=== PATIENT | male | born 1945 | race Caucasian/White ===

== ENCOUNTER 2016-06-10 11:21 | Outpatient (CLI) | payer OTHER | END 2016-06-10 11:22 | disposition home or self-care (01) | DX: C61 Malignant neoplasm of prostate (principal) ==

== ENCOUNTER 2016-07-02 08:10 | Outpatient (CLI) | payer OTHER | END 2016-07-02 08:11 | disposition home or self-care (01) | DX: Z79.899 Other long term (current) drug therapy (principal) ==

== ENCOUNTER 2016-07-12 09:52 | Outpatient (CLI) | payer OTHER | END 2016-07-12 09:53 | disposition home or self-care (01) | DX: M85.89 Other specified disorders of bone density and structure, multiple sites (principal); Z79.899 Other long term (current) drug therapy; C61 Malignant neoplasm of prostate; Z79.810 Long term (current) use of selective estrogen receptor modulators (SERMs); Z79.52 Long term (current) use of systemic steroids ==

== ENCOUNTER 2016-09-16 14:27 | Outpatient (CLI) | payer OTHER | END 2016-09-16 14:28 | disposition home or self-care (01) | LOC: SC 14:27 | PROVIDERS: ATTEND Internal Medicine Pulmonary Disease | DX: G47.33 Obstructive sleep apnea (adult) (pediatric) (principal) | CPT/HCPCS: 99212; 99213 ==

== ENCOUNTER 2016-10-29 21:06 | Outpatient (CLI) | payer OTHER ==
[2016-10-29 13:37] LABS: HEMOGLOBIN A1C 0.55 g/dL
== END 2016-10-29 21:07 | disposition home or self-care (01) ==
LOC: LAB.WCP 21:06
PROVIDERS: ATTEND Family Medicine
DX: R73.01 Impaired fasting glucose (principal)
CPT/HCPCS: 36415; 83036

== ENCOUNTER 2016-12-09 10:47 | Outpatient (CLI) | payer OTHER | END 2016-12-09 10:48 | disposition home or self-care (01) | LOC: SC 10:47 | PROVIDERS: ATTEND Nurse Practitioner Family | DX: G47.33 Obstructive sleep apnea (adult) (pediatric) (principal) | CPT/HCPCS: 99212; 99214 ==

== ENCOUNTER 2016-12-14 09:44 | Outpatient (CLI) | payer OTHER ==
[2016-12-14 10:44] LABS: ALBUMIN/GLOBULIN RATIO 1.6 (1.0-2.2); BILIRUBIN,TOTAL 0.8 mg/dL (0.2-1.0); CALCIUM 9.8 mg/dL (8.5-10.3); POTASSIUM 4.4 mmol/L (3.5-5.0); TOTAL PROTEIN 7.4 g/dL (6.7-8.2)
== END 2016-12-14 09:45 | disposition home or self-care (01) ==
LOC: LAB 09:44
PROVIDERS: ATTEND Physician Assistant Medical
DX: R25.2 Cramp and spasm (principal); Z79.899 Other long term (current) drug therapy
CPT/HCPCS: 80053; 80175; 80178

== ENCOUNTER 2017-02-21 13:55 | Outpatient (CLI) | payer OTHER | END 2017-02-21 13:56 | disposition home or self-care (01) | LOC: LAB.WCP 13:55 | PROVIDERS: ATTEND Urology | DX: C61 Malignant neoplasm of prostate (principal) | CPT/HCPCS: 36415; 84153 ==

== ENCOUNTER 2017-03-14 11:08 | Outpatient (CLI) | payer OTHER ==
[2017-03-14 19:00] LABS: CALCIUM 9.3 mg/dL (8.5-10.3); POTASSIUM 4.3 mmol/L (3.5-5.0)
== END 2017-03-14 11:09 | disposition home or self-care (01) ==
LOC: LAB.WCP 11:08
PROVIDERS: ATTEND Family Medicine
DX: R30.0 Dysuria (principal); I10 Essential (primary) hypertension; Z79.899 Other long term (current) drug therapy
CPT/HCPCS: 36415; 80048

== ENCOUNTER 2017-04-16 10:58 | Outpatient (CLI) | payer OTHER | END 2017-04-16 10:59 | disposition home or self-care (01) | LOC: SC 10:58 | PROVIDERS: ATTEND Nurse Practitioner Family | DX: G47.33 Obstructive sleep apnea (adult) (pediatric) (principal); G47.31 Primary central sleep apnea | CPT/HCPCS: 99212; 99214 ==

== ENCOUNTER 2017-05-19 09:57 | Outpatient (CLI) | payer OTHER | END 2017-05-19 09:58 | disposition home or self-care (01) | LOC: SC 09:57 | PROVIDERS: ATTEND Nurse Practitioner Family | DX: G47.33 Obstructive sleep apnea (adult) (pediatric) (principal) | CPT/HCPCS: 99212; 99214 ==

== ENCOUNTER 2017-05-31 21:00 | Outpatient (CLI) | payer OTHER ==
[2017-05-31 21:17] LABS: BASOPHILS % (AUTO) 2.9 %; HGB - HEMOGLOBIN 14.1 g/dL (14.0-18.0); LYMPHOCYTES % (AUTO) 18.2 %; MEAN CORPUSCULAR HEMOGLOBIN 30.9 pg (27.0-31.0); MEAN CORPUSCULAR HGB CONC 33.5 g/dL (32.0-36.0); MEAN CORPUSCULAR VOLUME 92.3 fL (80.0-94.0); MEAN PLATELET VOLUME 7.1 fL (7.4-11.4); MONOCYTES % (AUTO) 10.4 %; NEUTROPHILS % (AUTO) 63.5 %; PLT - PLATELET COUNT 239 10^3/uL (130-450); RED BLOOD COUNT 4.57 10^6/uL (4.70-6.10); RED CELL DISTRIBUTION WIDTH 13.7 % (12.0-15.0); WHITE BLOOD COUNT 8.6 x10^3/uL (4.8-10.8)
[2017-05-31 21:25] LABS: ALBUMIN 4.4 g/dL (3.2-5.5); ALBUMIN/GLOBULIN RATIO 1.4 (1.0-2.2); BILIRUBIN,TOTAL 0.8 mg/dL (0.2-1.0); CALCIUM 9.9 mg/dL (8.5-10.3); CREATININE 1.4 mg/dL (0.6-1.2); TOTAL PROTEIN 7.6 g/dL (6.7-8.2)
[2017-05-31 21:27] LABS: ABNORMAL LYMPHS % (MANUAL) 0 %
[2017-05-31 22:00] LABS: BAND NEUTROPHILS % (MANUAL) 4 %; EOSINOPHILS # (MANUAL) 0.5 10^3/uL (0-0.7); LYMPHOCYTES # (MANUAL) 2.2 10^3/uL (1.5-3.5); LYMPHOCYTES % (MANUAL) 25 %; MONOCYTES # (MANUAL) 0.7 10^3/uL (0.0-1.0); NEUTROPHILS # (MANUAL) 5.2 10^3/uL (1.5-6.6); NEUTROPHILS % (MANUAL) 57 %; PLATELET ESTIMATE, MANUAL NORMAL (130-450,000) (NORMAL); PLATELET MORPHOLOGY NORMAL APPEARANCE (NORMAL); RBC MORPHOLOGY (MULTIPLE) NORMAL APPEARANCE (NORMAL)
[2017-05-31 22:01] LABS: DIFFERENTIAL COMMENT MANUAL DIFFERENTIAL
== END 2017-05-31 21:01 | disposition home or self-care (01) ==
LOC: LAB 21:00
PROVIDERS: ATTEND Family Medicine
DX: R10.9 Unspecified abdominal pain (principal); R19.7 Diarrhea, unspecified
CPT/HCPCS: 36415; 80053; 81599; 83690; 85025; 87045; 87046; 87329; 87493; 89055

== ENCOUNTER 2017-06-04 08:07 | Outpatient (CLI) | payer OTHER ==
[2017-06-04] MEDS ORDERED: IOPAMIDOL-300 100 ML VIAL ONE (08:19)
[2017-06-04] MEDS ORDERED: IOPAMIDOL-300 100 ML VIAL IVP ONE (08:47)
--- NOTE | 2017-06-04 10:47 | CT Report ---
ABDOMEN AND PELVIS CT: 06/04/2017 COMPARISON: No comparison. INDICATION: Abdominal pain. TECHNIQUE: Axial imaging of the abdomen and pelvis was performed with 100 mL Isovue-300 intravenous contrast. No oral contrast. Coronal and sagittal reformats. FINDINGS: There is band-like atelectasis or scar of the lingula. There are calcifications of the coronary arteries. A 1 cm flash enhancement in the right lobe of the liver likely a flash enhancing hemangioma. The liver, spleen, pancreas, adrenal glands, and kidneys appear otherwise unremarkable. There are colon surgery changes. Prostate brachytherapy seeds are noted. There is a calcified gallstone. IMPRESSION: THERE ARE NO CT FINDINGS TO SUGGEST A CAUSE OF THE PATIENT'S SYMPTOMS. CT DOSE REDUCTION STATEMENT In accordance with CT protocol optimization, one or more of the following dose reduction techniques were utilized for this exam: automated exposure control, adjustment of mA and/or KV based on patient size, or use of iterative reconstructive technique. TD: 06/04/2017 10:45 MTDD
== END 2017-06-04 08:08 | disposition home or self-care (01) ==
LOC: DI 08:07
PROVIDERS: ATTEND Family Medicine
DX: R10.9 Unspecified abdominal pain (principal)
CPT/HCPCS: 74174; Q9967

== ENCOUNTER 2017-06-15 09:06 | Outpatient (CLI) | payer OTHER ==
[2017-06-15 09:29] LABS: CALCIUM 9.2 mg/dL (8.5-10.3); CREATININE 1.2 mg/dL (0.6-1.2)
[2017-06-15 10:18] LABS: LITHIUM 0.33 mmol/L
== END 2017-06-15 09:07 | disposition home or self-care (01) ==
LOC: LAB 09:06
PROVIDERS: ATTEND Psychiatry & Neurology Psychiatry
DX: Z79.899 Other long term (current) drug therapy (principal)
CPT/HCPCS: 36415; 80048; 80178

== ENCOUNTER 2017-06-16 10:02 | Outpatient (CLI) | payer OTHER | END 2017-06-16 10:03 | disposition home or self-care (01) | LOC: SC 10:02 | PROVIDERS: ATTEND Nurse Practitioner Family | DX: G47.33 Obstructive sleep apnea (adult) (pediatric) (principal) | CPT/HCPCS: 99212; 99214 ==

== ENCOUNTER 2017-07-22 14:59 | Outpatient (CLI) | payer OTHER | END 2017-07-22 15:00 | disposition home or self-care (01) | LOC: SC 14:59 | PROVIDERS: ATTEND Nurse Practitioner Family | DX: G47.33 Obstructive sleep apnea (adult) (pediatric) (principal) | CPT/HCPCS: 99212; 99214 ==

== ENCOUNTER 2017-08-14 10:17 | Emergency (ER) | payer OTHER ==
[2017-08-14 11:05] LABS: BASOPHILS # (AUTO) 0.1 10^3/uL (0.0-0.1); BASOPHILS % (AUTO) 0.9 %; EOSINOPHILS # (AUTO) 0.2 10^3/uL (0.0-0.7); EOSINOPHILS % (AUTO) 3.2 %; HGB - HEMOGLOBIN 14.2 g/dL (14.0-18.0); LYMPHOCYTES # (AUTO) 1.3 10^3/uL (1.5-3.5); LYMPHOCYTES % (AUTO) 17.6 %; MEAN CORPUSCULAR HEMOGLOBIN 31.1 pg (27.0-31.0); MEAN CORPUSCULAR HGB CONC 33.8 g/dL (32.0-36.0); MEAN CORPUSCULAR VOLUME 91.9 fL (80.0-94.0); MEAN PLATELET VOLUME 6.8 fL (7.4-11.4); MONOCYTES # (AUTO) 0.9 10^3/uL (0.0-1.0); MONOCYTES % (AUTO) 11.6 %; NEUTROPHILS # (AUTO) 4.9 10^3/uL (1.5-6.6); NEUTROPHILS % (AUTO) 66.7 %; PLT - PLATELET COUNT 165 10^3/uL (130-450); RED BLOOD COUNT 4.56 10^6/uL (4.70-6.10); RED CELL DISTRIBUTION WIDTH 13.9 % (12.0-15.0); WHITE BLOOD COUNT 7.4 x10^3/uL (4.8-10.8)
[2017-08-14 11:20] LABS: ALBUMIN 4.1 g/dL (3.2-5.5); ALBUMIN/GLOBULIN RATIO 1.3 (1.0-2.2); BILIRUBIN,TOTAL 0.8 mg/dL (0.2-1.0); TOTAL PROTEIN 7.3 g/dL (6.7-8.2)
--- NOTE | 2017-08-14 11:50 | XRAY Report ---
EXAM: CHEST RADIOGRAPHY EXAM DATE: 08/14/2017 11:22 AM. CLINICAL HISTORY: Chest pain and shortness of breath for 3 days. COMPARISON: Chest x-ray 02/16/2016. TECHNIQUE: 2 views. FINDINGS: Lungs/Pleura: No focal consolidation evident. No pleural effusion. No pneumothorax. Normal volumes. M ild lateral left basilar scarring. Left pericardial fat pad. Mediastinum: Tortuous thoracic aorta. Other: Midthoracic spine degenerative changes. IMPRESSION: No consolidation evident. [facility] Referring Provider Line: [phone] SITE ID: [id number]
--- NOTE | 2017-08-14 12:07 | ED Physician Documentation ---
PD HPI DYSPNEA - Stated complaint Stated Complaint: SOA/FATIGUE DIZZY - Chief complaint Chief Complaint: Resp - History obtained from History obtained from: Patient - History of Present Illness Timing - onset: How many days ago (3) Timing - onset during: Light activity Timing - duration: Days (3) Timing - details: Abrupt onset, Still present, Waxing and waning (much worse at times, when lying down on side and also with light activity. Sometimes feels not too bad.) Inciting event(s): No: Out of meds, URI, Immobilization/travel Improved by: Rest Worsened by: Exertion, Laying flat Associated symptoms: No: Fever, Cough, Hemoptysis, Wheezing, Chest pain / discomfort, Bilateral edema Similar symptoms before: Has not had sx before Recently seen: Clinic (seen by psychiatrist and is having lithium lowering and started Tegretol. Had Lomotrigene increased.), Emergency Dept (had unexplained lower abd pain about 3 months ago with normal tests and no diagnosis; improved after few days. No subsequent problems. No travel nor leg edema.) Review of Systems Constitutional: denies: Fever, Chills Nose: denies: Rhinorrhea / runny nose, Congestion Throat: denies: Sore throat Cardiac: reports: Calf pain (had a cramp in left leg about 3 weeks ago fro just one night. No recent problems.). denies: Chest pain / pressure, Palpitations, Pedal edema Respiratory: reports: Dyspnea. denies: Cough, Wheezing GI: denies: Abdominal Pain, Nausea, Vomiting : denies: Dysuria, Frequency Skin: denies: Rash, Lesions, Abrasion (s) Neurologic: denies: Focal weakness, Numbness, Near syncope Psychiatric: reports: Depressed, Anxiety Endocrine: denies: Weight loss Immunocompromised: denies: Immunocompromised PD PAST MEDICAL HISTORY - Past Medical History Cardiovascular: None Respiratory: Sleep apnea, CPAP use GI: None : None, Other HEENT: None Psych: Bipolar disorder Musculoskeletal: Osteoarthritis, Chronic back pain Derm: None - Past Surgical History Past Surgical History: Yes General: Colonoscopy, EGD, Other Ortho: Rotator cuff repair, Other HEENT: Tonsil/Adenoidectomy - Present Medications Home Medications: Ambulatory Orders Medication Instructions Recorded Confirmed Bupropion HCl [Wellbutrin] 100 mg PO TID 10/23/13 08/15/16 busPIRone [Buspar] 15 mg PO QID 01/13/13 11/06/15 lamoTRIgine [LaMICtal] 200 mg PO BID 01/13/13 11/06/15 oxyCODONE [Roxicodone] 5 mg PO Q4-6H 01/13/13 11/06/15 Acetaminophen 1,000 mg PO DAILY 10/16/15 10/16/15 Tamsulosin HCl [Flomax] 0.4 mg ORAL DAILY 10/16/15 11/06/15 Carbamazepine 200 mg PO 08/14/17 Maxeys 450 mg PO 08/14/17 - Allergies Allergies/Adverse Reactions: Allergies Allergy/AdvReac Type Severity Reaction Status Date / Time latex Allergy Rash Verified 08/14/17 10:38 - Social History Does the pt smoke?: No Smoking Status: Never smoker Does the pt drink ETOH?: No Does the pt have substance abuse?: No - Family History Family history: denies: CAD, Venous thromboembolism PD ED PE NORMAL - Vitals Vital signs reviewed: Yes - General General: Alert and oriented X 3, No acute distress, Well developed/nourished - HEENT HEENT: Atraumatic, Pharynx benign - Neck Neck: Supple, no meningeal sign, No adenopathy - Cardiac Cardiac: RRR, No murmur - Respiratory Respiratory: No respiratory distress, Clear bilaterally - Abdomen Abdomen: Normal bowel sounds, Soft, Non tender, Non distended - Male Male : Deferred - Rectal Rectal: Deferred - Back Back: No CVA TTP - Derm Derm: Normal color, Warm and dry - Extremities Extremities: No deformity, No tenderness to palpate, Normal ROM s pain, No edema , No calf tenderness / cord - Neuro Neuro: Alert and oriented X 3, No motor deficit, Normal speech Eye Opening: Spontaneous Motor: Obeys Commands Verbal: Oriented GCS Score: 15 - Psych Psych: Normal mood, Normal affect Results - Vitals Vitals: Vital Signs - 24 hr 08/14/17 08/14/17 08/14/17 10:23 14:22 15:36 Temperature 36.4 C L 36.5 C 36.4 C L Heart Rate 78 71 64 Respiratory 18 20 16 Rate Blood Pressure 131/85 H 132/92 H 122/85 H O2 Saturation 96 97 98 08/14/17 08/14/17 17:40 18:11 Temperature Heart Rate 65 67 Respiratory 16 25 H Rate Blood Pressure 127/73 143/86 H O2 Saturation 97 96 Oxygen O2 Source Room air - EKG (time done) 10:25 Rate: Rate (enter#) (65) Rhythm: NSR [place]: Normal Intervals: Normal [place] QRS: Normal Ischemia: Normal ST segments. No: ST elevation c/w ischemia, ST depression, T wave inversion - Labs Labs: Laboratory Tests 08/14/17 08/14/17 08/14/17 10:50 10:50 10:50 WBC 7.4 RBC 4.56 L Hgb 14.2 Hct 41.9 L MCV 91.9 MCH 31.1 H MCHC 33.8 RDW 13.9 Plt Count 165 MPV 6.8 L Neut # 4.9 Lymph # 1.[address] [place] # 0.9 Eos # 0.2 Baso # 0.1 Absolute Nucleated RBC 0.01 Nucleated RBC % 0.1 D-Dimer Sodium 136 Potassium 4.1 Chloride 105 Carbon Dioxide 25 Anion Gap 6.0 BUN 14 Creatinine 1.0 Estimated GFR (MDRD) 73 L Glucose 103 H Calcium 9.0 Magnesium Total Bilirubin 0.8 AST 22 ALT 21 Alkaline Phosphatase 88 Troponin I 0.19 B-Natriuretic Peptide Total Protein 7.3 Albumin 4.1 Globulin 3.2 Albumin/Globulin Ratio 1.3 Lipase 25 Last Dose Date Last Dose Time Carbamazepine Max[place]ys 08/14/17 08/14/17 08/14/17 10:50 10:50 10:50 WBC RBC Hgb Hct MCV MCH MCHC RDW Plt Count MPV Neut # Lymph # [place] # Eos # Baso # Absolute Nucleated RBC Nucleated RBC % D-Dimer 2200.0 H Sodium Potassium Chloride Carbon Dioxide Anion Gap BUN Creatinine Estimated GFR (MDRD) Glucose Calcium Magnesium 2.2 Total Bilirubin AST ALT Alkaline Phosphatase Troponin I B-Natriuretic Peptide 75 Total Protein Albumin Globulin Albumin/Globulin Ratio Lipase Last Dose Date Unknown Last Dose Time Unknown Carbamazepine 6.5 Maxeys 08/14/17 08/14/17 10:50 12:52 WBC RBC Hgb Hct MCV MCH MCHC RDW Plt Count MPV Neut # Lymph # [place] # Eos # Baso # Absolute Nucleated RBC Nucleated RBC % D-Dimer Sodium Potassium Chloride Carbon Dioxide Anion Gap BUN Creatinine Estimated GFR (MDRD) Glucose Calcium Magnesium Total Bilirubin AST ALT Alkaline Phosphatase Troponin I 0.15 B-Natriuretic Peptide Total Protein Albumin Globulin Albumin/Globulin Ratio Lipase Last Dose Date Unknown Last Dose Time Unknown Carbamazepine Maxeys 0.25 - Rads (name of study) chest xray Radiology: Prelim report reviewed, EMP read contemporaneously (no acute process) chest CTA Radiology: Prelim report reviewed, Discussed with rads (multiple emboli centrally both sides, with saddle embolus present. Enlarged RV but not obvious strain per se. ) PD MEDICAL DECISION MAKING - ED course Complexity details: reviewed results, re-evaluated patient (still stable vitals. ), considered differential (ACS, PTX, pneumonia, NE, CHF, PE as possible causes. ), d/w patient, d/w client support consultant ([place] transfer coordinatory who arranged transfer to [facility]. ) Departure - Departure Disposition: 02 Transfer Acute Care Hosp Clinical Impression: Acute dyspnea Saddle embolism of pulmonary artery Qualifiers: Chronicity: acute Acute cor pulmonale presence: without acute cor pulmonale Qualified Code(s): I26.92 - Saddle embolus of pulmonary artery without acute cor pulmonale Condition: Stable Record reviewed to determine appropriate education?: Yes Discharge Date/Time: 08/14/17 18:15
[2017-08-14 12:42] LABS: LITHIUM 0.25 mmol/L
[2017-08-14 12:48] LABS: CARBAMAZEPINE (TEGRETOL) 6.5 ug/mL; MAGNESIUM 2.2 mg/dL (1.7-2.8)
[2017-08-14] MEDS ORDERED: IOPAMIDOL-300 100 ML VIAL IVP ONE (13:39)
[2017-08-14] MEDS ORDERED: HEPARIN 5,000 UNIT/ML VIAL IVP STA (13:40)
[2017-08-14] MEDS ORDERED: IOPAMIDOL-300 100 ML VIAL ONE (13:51)
--- NOTE | 2017-08-14 13:56 | CT Report ---
EXAM: CT ANGIOGRAM CHEST EXAM DATE: 08/14/2017 01:37 PM. CLINICAL HISTORY: Dyspnea and elevated d-dimer. COMPARISON: 02/23/2016. TECHNIQUE: Routine helical imaging was performed through the chest in the pulmonary arterial phase. I V Contrast: ISOVUE 300 80mL. Reconstructions: Coronal 3-D MIP reconstructions.Sagittal and coronal. In accordance with CT protocol optimization, one or more of the following dose reduction techniques w ere utilized for this exam: automated exposure control, adjustment of mA and/or KV based on patient s ize, or use of iterative reconstructive technique. FINDINGS: Pulmonary Arteries: Diagnostic quality: Adequate through the segmental arteries. Positive for acute pulmonary embolism in cluding a saddle pulmonary embolism with bilateral lobar, segmental and subsegmental pulmonary emboli . No abnormal flattening of the intraventricular septum. The right ventricle appears dilated. No reflux of contrast into the hepatic veins or inferior vena cava. Lungs/Pleura: There is left lower lobe atelectasis. No consolidative process or central endobronchial obstructing lesion. Mediastinum: Heart size is normal. Negative for pericardial effusion. There are dense coronary artery calcifications. Thoracic aorta is normal in caliber with mild atherosclerotic calcified plaque. Thoracic Aorta: No aortic aneurysm. Upper Abdomen: There is a small gallstone in the gallbladder. Other: None. IMPRESSION: 1. Positive for bilateral central pulmonary emboli including saddle pulmonary embolism. 2. Equivocal features for right ventricular strain. Right ventricle is dilated but other findings are negative. [facility] The above findings were discussed with Jarret Lopez by Dr. Lucien Toure at 13:53 hrs on 07/23 07/09. Referring Provider Line: [phone] SITE ID: [id number]
[2017-08-14] MEDS ORDERED: HEPARIN 25000UNITS/500ML (D5W) 25,000 UNIT/500 ML BAG IV SCH (14:00)
[2017-08-14 18:12] VITALS: BP 143/86
== END 2017-08-14 18:15 | disposition short-term general hospital (02) ==
LOC: ED 10:17
DX: I26.92 Saddle embolus of pulmonary artery without acute cor pulmonale (principal); R06.09 Other forms of dyspnea; G47.30 Sleep apnea, unspecified; M19.90 Unspecified osteoarthritis, unspecified site
CPT/HCPCS: 36415; 71046; 71275; 80053; 80156; 80175; 80178; 83690; 83735; 83880; 84484; 85025; 85379; 93005; 96365; 96366; 96376; 99284; Q9967

== ENCOUNTER 2017-08-18 09:05 | Outpatient (CLI) | payer OTHER ==
[2017-08-18 09:26] LABS: BASOPHILS # (AUTO) 0.1 10^3/uL (0.0-0.1); BASOPHILS % (AUTO) 1.2 %; EOSINOPHILS # (AUTO) 0.3 10^3/uL (0.0-0.7); EOSINOPHILS % (AUTO) 4.5 %; HGB - HEMOGLOBIN 14.8 g/dL (14.0-18.0); LYMPHOCYTES # (AUTO) 1.1 10^3/uL (1.5-3.5); MEAN CORPUSCULAR HEMOGLOBIN 31.1 pg (27.0-31.0); MEAN CORPUSCULAR HGB CONC 34.1 g/dL (32.0-36.0); MEAN CORPUSCULAR VOLUME 91.1 fL (80.0-94.0); MEAN PLATELET VOLUME 7.1 fL (7.4-11.4); MONOCYTES # (AUTO) 0.9 10^3/uL (0.0-1.0); MONOCYTES % (AUTO) 15.1 %; NEUTROPHILS # (AUTO) 3.7 10^3/uL (1.5-6.6); NEUTROPHILS % (AUTO) 61.2 %; PLT - PLATELET COUNT 166 10^3/uL (130-450); RED BLOOD COUNT 4.77 10^6/uL (4.70-6.10); RED CELL DISTRIBUTION WIDTH 13.8 % (12.0-15.0); WHITE BLOOD COUNT 6.1 x10^3/uL (4.8-10.8)
[2017-08-18 09:31] LABS: INR 1.7 (0.8-1.2); PT - PROTHROMBIN TIME 18.6 secs (9.9-12.6)
[2017-08-18 09:44] LABS: ALBUMIN 4.3 g/dL (3.2-5.5); ALBUMIN/GLOBULIN RATIO 1.3 (1.0-2.2); ALKALINE PHOSPHATASE 111 IU/L (42-121); ALT ALANINE AMINOTRANSFERASE 57 IU/L (10-60); AST ASPARTATE AMINOTRANSFERASE 62 IU/L (10-42); BILIRUBIN,TOTAL 0.6 mg/dL (0.2-1.0); BUN - BLOOD UREA NITROGEN 13 mg/dL (6-20); CALCIUM 9.1 mg/dL (8.5-10.3); CARBAMAZEPINE (TEGRETOL) 8.1 ug/mL; CARBON DIOXIDE - CO2 24 mmol/L (21-32); CHLORIDE 102 mmol/L (101-111); CREATININE 1.1 mg/dL (0.6-1.2); GFR - MDRD 66 (>89); GLUCOSE 103 mg/dL (70-100); SODIUM 137 mmol/L (135-145); TOTAL PROTEIN 7.7 g/dL (6.7-8.2)
[2017-08-18 10:44] LABS: LITHIUM 0.29 mmol/L
== END 2017-08-18 09:06 | disposition home or self-care (01) ==
LOC: LAB 09:05
PROVIDERS: ATTEND Urology
DX: I26.99 Other pulmonary embolism without acute cor pulmonale (principal); R97.20 Elevated prostate specific antigen [PSA]
CPT/HCPCS: 36415; 80053; 80156; 80178; 84153; 85025; 85610

== ENCOUNTER 2017-08-20 14:17 | Outpatient (CLI) | payer OTHER ==
[2017-08-20 18:50] LABS: HGB - HEMOGLOBIN 14.3 g/dL (14.0-18.0); MEAN CORPUSCULAR HEMOGLOBIN 30.2 pg (27.0-31.0); MEAN CORPUSCULAR HGB CONC 32.9 g/dL (32.0-36.0); MEAN CORPUSCULAR VOLUME 91.7 fL (80.0-94.0); MEAN PLATELET VOLUME 7.8 fL (7.4-11.4); RED BLOOD COUNT 4.74 10^6/uL (4.70-6.10); RED CELL DISTRIBUTION WIDTH 13.8 % (12.0-15.0); WHITE BLOOD COUNT 6.5 x10^3/uL (4.8-10.8)
[2017-08-20 19:11] LABS: CREATININE 1.1 mg/dL (0.6-1.2)
== END 2017-08-20 14:18 | disposition home or self-care (01) ==
LOC: LAB.WCP 14:17
PROVIDERS: ATTEND Family Medicine
DX: R05 Cough (principal)
CPT/HCPCS: 36415; 80048; 83880; 85027

== ENCOUNTER 2017-09-03 14:57 | Outpatient (CLI) | payer OTHER | END 2017-09-03 14:58 | disposition home or self-care (01) | LOC: SC 14:57 | PROVIDERS: ATTEND Nurse Practitioner Family | DX: G47.33 Obstructive sleep apnea (adult) (pediatric) (principal) | CPT/HCPCS: 99212; 99214 ==

== ENCOUNTER 2017-10-06 09:28 | Emergency (ER) | payer OTHER ==
--- NOTE | 2017-10-06 10:30 | ED Physician Documentation ---
PD HPI DYSPNEA - Stated complaint Stated Complaint: SOA, DIZZY - Chief complaint Chief Complaint: Resp - History obtained from History obtained from: Patient - History of Present Illness Timing - onset: How many days ago (3) Timing - onset during: Light activity Timing - duration: Days (3) Timing - details: Gradual onset, Still present Inciting event(s): URI, Other (has PE's) Improved by: Rest Worsened by: Exertion Associated symptoms: Cough. No: Fever, Hemoptysis, Wheezing, Chest pain / discomfort, Palpitations, Diaphoresis, Bilateral edema, Unilateral edema Similar symptoms before: Diagnosis (pulmonary embolism.) Recently seen: Admitted - Additional information Additional information: 72-year-old male who was admitted in July for saddle embolus is on Coumadin and had been improving. He has been going on his dog walks on a regular basis and about 3 days ago he began to have some increasing shortness of breath. He denies other intercurrent illness except for a dry cough. Review of Systems Constitutional: denies: Fever Eyes: denies: Decreased vision Ears: denies: Ear pain Nose: reports: Congestion. denies: Rhinorrhea / runny nose Throat: denies: Sore throat Cardiac: denies: Chest pain / pressure, Palpitations Respiratory: reports: Dyspnea, Cough GI: denies: Abdominal Pain, Nausea, Vomiting : denies: Dysuria, Frequency PD PAST MEDICAL HISTORY - Past Medical History Past Medical History: Yes Cardiovascular: None, Pulmonary embolism Respiratory: Sleep apnea, CPAP use GI: None : None, Other HEENT: None Psych: Bipolar disorder Musculoskeletal: Osteoarthritis, Chronic back pain Derm: None - Past Surgical History Past Surgical History: Yes General: Colonoscopy, EGD, Other Ortho: Rotator cuff repair, Other HEENT: Tonsil/Adenoidectomy - Present Medications Home Medications: Ambulatory Orders Medication Instructions Recorded Confirmed Bupropion HCl [Wellbutrin] 100 mg PO TID 01/13/13 11/06/15 busPIRone [Buspar] 15 mg PO QID 01/13/13 11/06/15 lamoTRIgine [LaMICtal] 200 mg PO BID 01/13/13 11/06/15 oxyCODONE [Roxicodone] 5 mg PO Q4-6H 01/13/13 11/06/15 Acetaminophen 1,000 mg PO DAILY 10/16/15 10/16/15 Tamsulosin HCl [Flomax] 0.4 mg ORAL DAILY 10/16/15 11/06/15 Carbamazepine 200 mg PO 08/14/17 [place] 450 mg PO 08/14/17 Albuterol Sulf [Ventolin Hfa 1 - 2 puffs INH Q4HR PRN #1 inhaler 10/06/17 Inhaler] Azithromycin [Zithromax] 250 mg PO DAILY #6 tablet 10/06/17 Warfarin Sodium 7.5 mg PO 10/06/17 - Allergies Allergies/Adverse Reactions: Allergies Allergy/AdvReac Type Severity Reaction Status Date / Time latex Allergy Rash Verified 08/14/17 10:38 - Social History Does the pt smoke?: No Smoking Status: Never smoker Does the pt drink ETOH?: No Does the pt have substance abuse?: No - Immunizations Immunizations are current?: Yes PD ED PE NORMAL - Vitals Vital signs reviewed: Yes (hypertensive) - General General: Alert and oriented X 3, No acute distress, Well developed/nourished - HEENT HEENT: Atraumatic, PERRL, EOMI, Other (cerumen in the right left TM is clear) - Neck Neck: Supple, no meningeal sign, No bony TTP - Cardiac Cardiac: RRR, No murmur - Respiratory Respiratory: No respiratory distress, Other (light rhonchi in the left base ) - Abdomen Abdomen: Soft, Non tender - Back Back: No CVA TTP, No spinal TTP - Derm Derm: Normal color, Warm and dry, No rash - Extremities Extremities: No deformity, No edema - Neuro Neuro: Alert and oriented X 3, 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, No motor deficit, No sensory deficit, Normal speech Eye Opening: Spontaneous Motor: Obeys Commands Verbal: Oriented GCS Score: 15 - Psych Psych: Normal mood, Normal affect Results - Vitals Vitals: Vital Signs - 24 hr 10/06/17 10/06/17 10/06/17 09:36 10:04 11:33 Temperature 36.5 C Heart Rate 71 56 L 56 L Respiratory 20 15 16 Rate Blood Pressure 138/85 H 117/84 H 142/77 H O2 Saturation 94 98 97 10/06/17 10/06/17 12:50 13:00 Temperature Heart Rate 56 L 51 L Respiratory 17 15 Rate Blood Pressure 128/95 H O2 Saturation 98 Oxygen O2 Source Room air - EKG (time done) 0941 Rate: Rate (enter#) (59) Intervals: Wide QRS QRS: Low voltage Compare to prior EKG: Unchanged from prior EKG (08-14-17) Computer interpretation: Agree with computer - Labs Labs: Laboratory Tests 10/06/17 10/06/17 10/06/17 10:12 10:12 10:12 WBC 5.7 RBC 4.26 L Hgb 13.3 L Hct 39.6 L MCV 93.0 MCH 31.3 H MCHC 33.6 RDW 13.8 Plt Count 162 MPV 6.9 L Neut # (Auto) 3.5 Lymph # (Auto) 1.2 L [place] # (Auto) 0.8 Eos # (Auto) 0.3 Baso # (Auto) 0.1 Absolute Nucleated RBC 0.00 Nucleated RBC % 0.0 PT 25.8 H INR 2.4 H Sodium 137 Potassium 4.2 Chloride 107 Carbon Dioxide 26 Anion Gap 4.0 L BUN 14 Creatinine 1.0 Estimated GFR (MDRD) 73 L Glucose 102 H Calcium 8.7 Total Bilirubin 0.5 AST 24 ALT 25 Alkaline Phosphatase 74 Troponin I Total Protein 6.4 L Albumin 3.9 Globulin 2.5 Albumin/Globulin Ratio 1.6 Lipase 41 Urine Color Urine Clarity Urine pH Ur Specific [place] Urine Protein Urine Glucose (UA) Urine Ketones Urine Occult Blood Urine Nitrite Urine Bilirubin Urine Urobilinogen Ur Leukocyte Esterase Ur Microscopic Review Urine Culture Comments 10/06/17 10/06/17 10:12 10:27 WBC RBC Hgb Hct MCV MCH MCHC RDW Plt Count MPV Neut # (Auto) Lymph # (Auto) [place] # (Auto) Eos # (Auto) Baso # (Auto) Absolute Nucleated RBC Nucleated RBC % PT INR Sodium Potassium Chloride Carbon Dioxide Anion Gap BUN Creatinine Estimated GFR (MDRD) Glucose Calcium Total Bilirubin AST ALT Alkaline Phosphatase Troponin I < 0.04 Total Protein Albumin Globulin Albumin/Globulin Ratio Lipase Urine Color YELLOW Urine Clarity CLEAR Urine pH 7.5 Ur Specific [place] 1.010 Urine Protein NEGATIVE Urine Glucose (UA) NEGATIVE Urine Ketones NEGATIVE Urine Occult Blood NEGATIVE Urine Nitrite NEGATIVE Urine Bilirubin NEGATIVE Urine Urobilinogen 0.2 (NORMAL) Ur Leukocyte Esterase NEGATIVE Ur Microscopic Review NOT INDICATED Urine Culture Comments NOT INDICATED - Rads (name of study) 2 veiw chest Radiology: Prelim report reviewed (Impression: Subtle irregular opacities in the left lung base again seen in the setting of atelectasis, aspiration or infectious process.), EMP read indepedently, See rad report Procedures - IVC sono (time) 1038 Bedside IVC sono: IVC measures (cm) (1.19), IVC collapsed c insp (cm) (complete) , Dehydration (est 1 liter deficit) PD MEDICAL DECISION MAKING - ED course Complexity details: reviewed old records, reviewed results, re-evaluated patient , considered differential, d/w patient ED course: 72-year-old male with a recent history of pulmonary emboli has had some improvement followed by worsening over the past week where he has have a cough or has a cough and on x-ray appears to have patchy pneumonia in the left base. He is having some wheezing associated with this and increased exertional dyspnea. Here in the emergency department is treated with Rocephin intravenously and a DuoNeb treatment. He would prefer to not take prednisone as it caused him some depression. He is given PO decadron here. - Sepsis Event Vital Signs: Vital Signs - 24 hr 10/06/17 10/06/17 10/06/17 09:36 10:04 11:33 Temperature 36.5 C Heart Rate 71 56 L 56 L Respiratory 20 15 16 Rate Blood Pressure 138/85 H 117/84 H 142/77 H O2 Saturation 94 98 97 10/06/17 10/06/17 12:50 13:00 Temperature Heart Rate 56 L 51 L Respiratory 17 15 Rate Blood Pressure 128/95 H O2 Saturation 98 Oxygen O2 Source Room air Departure - Departure Disposition: 01 Home, Self Care Clinical Impression: Pneumonia Qualifiers: Pneumonia type: due to unspecified organism Laterality: left Lung location: lower lobe of lung Qualified Code(s): J18.1 - Lobar pneumonia, unspecified organism Condition: Stable Instructions: ED Pneumonia Adult Follow-Up: Christiano Terry MD [Primary Care Provider] - Prescriptions: Albuterol Sulf [Ventolin Hfa Inhaler] 1 - 2 puffs INH Q4HR PRN #1 inhaler PRN Reason: Shortness Of Air/Wheezing Azithromycin [Zithromax] 250 mg PO DAILY #6 tablet Comments: Today you were diagnosed with pneumonia and we have started some antibiotic. Since you are on coumadin you will need to have your INR checked in 3 days.
[2017-10-06] MEDS ORDERED: SODIUM CHLORIDE 0.9% 1,000 ML IV ONE (10:44)
[2017-10-06 10:50] LABS: BASOPHILS # (AUTO) 0.1 10^3/uL (0.0-0.1); EOSINOPHILS # (AUTO) 0.3 10^3/uL (0.0-0.7); EOSINOPHILS % (AUTO) 4.6 %; HGB - HEMOGLOBIN 13.3 g/dL (14.0-18.0); LYMPHOCYTES # (AUTO) 1.2 10^3/uL (1.5-3.5); LYMPHOCYTES % (AUTO) 20.8 %; MEAN CORPUSCULAR HEMOGLOBIN 31.3 pg (27.0-31.0); MEAN CORPUSCULAR HGB CONC 33.6 g/dL (32.0-36.0); MEAN PLATELET VOLUME 6.9 fL (7.4-11.4); MONOCYTES # (AUTO) 0.8 10^3/uL (0.0-1.0); MONOCYTES % (AUTO) 13.4 %; NEUTROPHILS # (AUTO) 3.5 10^3/uL (1.5-6.6); NEUTROPHILS % (AUTO) 60.2 %; PLT - PLATELET COUNT 162 10^3/uL (130-450); RED BLOOD COUNT 4.26 10^6/uL (4.70-6.10); RED CELL DISTRIBUTION WIDTH 13.8 % (12.0-15.0); WHITE BLOOD COUNT 5.7 x10^3/uL (4.8-10.8)
[2017-10-06 10:56] LABS: INR 2.4 (0.8-1.2); PT - PROTHROMBIN TIME 25.8 secs (9.9-12.6)
[2017-10-06 11:00] LABS: ALBUMIN 3.9 g/dL (3.2-5.5); ALBUMIN/GLOBULIN RATIO 1.6 (1.0-2.2); BILIRUBIN,TOTAL 0.5 mg/dL (0.2-1.0); CALCIUM 8.7 mg/dL (8.5-10.3); TOTAL PROTEIN 6.4 g/dL (6.7-8.2)
--- NOTE | 2017-10-06 11:54 | XRAY Report ---
Procedure Date: 10/06/2017 Accession Number: [id number] / [id number] Procedure: XR - Chest 2 View X-Ray CPT Code: 94944 FULL RESULT: EXAM: CHEST RADIOGRAPHY EXAM DATE: 10/06/2017 11:34 AM. CLINICAL HISTORY: Rhonchi left base. COMPARISON: None. TECHNIQUE: 2 views. FINDINGS: Lungs/Pleura: Subtle irregular opacities in the left lung base. No pleural effusion or focal consolidation. Mediastinum: Heart and mediastinal contours are unremarkable. Other: None. IMPRESSION: Subtle irregular opacities in the left lung base again seen in the setting of atelectasis, aspiration or infectious process. [facility]
[2017-10-06] MEDS ORDERED: cefTRIAXone 1 GM in SODIUM CHLORIDE 0.9% MINIBAG 100 ML IV STA (12:13)
[2017-10-06] MEDS ORDERED: IPRATROPIUM/ALBUTEROL 3 ML NEB INH STA (12:39)
[2017-10-06 12:42] LABS: BILIRUBIN,URINE NEGATIVE (NEGATIVE); GLUCOSE, URINE (UA) NEGATIVE (NEGATIVE); KETONES,URINE (UA) NEGATIVE (NEGATIVE); LEUKOCYTE ESTERASE, URINE NEGATIVE (NEGATIVE); NITRITE,URINE NEGATIVE (NEGATIVE); OCCULT BLOOD,URINE NEGATIVE (NEGATIVE); PH,URINE 7.5 PH (5.0-7.5); PROTEIN,URINE NEGATIVE (NEGATIVE); UROBILINOGEN,URINE 0.2 (NORMAL) E.U./dL (NORMAL)
[2017-10-06 12:43] LABS: CLARITY,URINE CLEAR (CLEAR)
[2017-10-06 13:20] VITALS: BP 128/95
[2017-10-06] MEDS ORDERED: DEXAMETHASONE 10 MG/ML VIAL PO STA (13:34)
[2017-10-06] MEDS ORDERED: CHERRY SYRUP 10 ML UDC PO ONE (13:50)
== END 2017-10-06 13:45 | disposition home or self-care (01) ==
LOC: ED 09:28
DX: J18.1 Lobar pneumonia, unspecified organism (principal)
CPT/HCPCS: 71046; 80053; 81003; 83690; 84484; 85025; 85610; 93005; 94640; 94664; 96365; 99284; A9270; 36415; 81001; 87086

== ENCOUNTER 2017-11-01 09:07 | Outpatient (CLI) | payer OTHER ==
[2017-11-01 09:31] LABS: BASOPHILS % (AUTO) 0.7 %; EOSINOPHILS # (AUTO) 0.2 10^3/uL (0.0-0.7); EOSINOPHILS % (AUTO) 4.4 %; HGB - HEMOGLOBIN 14.3 g/dL (14.0-18.0); LYMPHOCYTES # (AUTO) 1.2 10^3/uL (1.5-3.5); LYMPHOCYTES % (AUTO) 21.4 %; MEAN CORPUSCULAR HEMOGLOBIN 31.4 pg (27.0-31.0); MEAN CORPUSCULAR HGB CONC 34.2 g/dL (32.0-36.0); MEAN CORPUSCULAR VOLUME 91.9 fL (80.0-94.0); MEAN PLATELET VOLUME 7.1 fL (7.4-11.4); MONOCYTES # (AUTO) 0.6 10^3/uL (0.0-1.0); MONOCYTES % (AUTO) 11.6 %; NEUTROPHILS # (AUTO) 3.4 10^3/uL (1.5-6.6); NEUTROPHILS % (AUTO) 61.9 %; PLT - PLATELET COUNT 181 10^3/uL (130-450); RED BLOOD COUNT 4.56 10^6/uL (4.70-6.10); WHITE BLOOD COUNT 5.4 x10^3/uL (4.8-10.8)
[2017-11-01 10:05] LABS: ALBUMIN 3.9 g/dL (3.2-5.5); ALBUMIN/GLOBULIN RATIO 1.2 (1.0-2.2); ALKALINE PHOSPHATASE 86 IU/L (42-121); ALT ALANINE AMINOTRANSFERASE 21 IU/L (10-60); AST ASPARTATE AMINOTRANSFERASE 21 IU/L (10-42); BILIRUBIN,TOTAL 0.7 mg/dL (0.2-1.0); BUN - BLOOD UREA NITROGEN 12 mg/dL (6-20); CALCIUM 8.9 mg/dL (8.5-10.3); CARBAMAZEPINE (TEGRETOL) 7.9 ug/mL; CARBON DIOXIDE - CO2 26 mmol/L (21-32); CHLORIDE 107 mmol/L (101-111); CREATININE 1.1 mg/dL (0.6-1.2); GFR - MDRD 66 (>89); GLUCOSE 109 mg/dL (70-100); SODIUM 140 mmol/L (135-145); TOTAL PROTEIN 7.1 g/dL (6.7-8.2)
== END 2017-11-01 09:08 | disposition home or self-care (01) ==
LOC: LAB 09:07
PROVIDERS: ATTEND Psychiatry & Neurology Psychiatry
DX: Z79.899 Other long term (current) drug therapy (principal)
CPT/HCPCS: 36415; 80053; 80156; 80178; 85025

== ENCOUNTER 2017-11-23 16:32 | Outpatient (CLI) | payer OTHER | END 2017-11-23 16:33 | disposition home or self-care (01) | LOC: DI 16:32 | PROVIDERS: ATTEND Family Medicine | DX: Z53.9 Procedure and treatment not carried out, unspecified reason (principal) ==

== ENCOUNTER 2017-11-27 16:19 | Outpatient (CLI) | payer OTHER ==
--- NOTE | 2017-11-28 15:45 | XRAY Report ---
Reason: HEEL PAIN,RIGHT Procedure Date: 11/27/2017 Accession Number: [id number] / [id number] Procedure: XR - Foot 2 View RT CPT Code: FULL RESULT: EXAM: RIGHT FOOT RADIOGRAPHY EXAM DATE: 11/27/2017 04:39 PM. CLINICAL HISTORY: HEEL PAIN,RIGHT. COMPARISON: None. TECHNIQUE: 2 views. FINDINGS: Bones: Small plantar calcaneal spur No fractures or bone lesions. Joints: No subluxations. Soft Tissues: No soft tissue swelling. IMPRESSION: Negative right foot radiography except for small plantar calcaneal spur.. [facility]
== END 2017-11-27 16:20 | disposition home or self-care (01) ==
LOC: DI 16:19
PROVIDERS: ATTEND Family Medicine
DX: M77.31 Calcaneal spur, right foot (principal)

== ENCOUNTER 2017-12-10 16:00 | Outpatient (CLI) | payer OTHER ==
--- NOTE | 2017-12-10 16:57 | CT Report ---
Reason: VISUAL CHANGES Procedure Date: 12/10/2017 Accession Number: [id number] / [id number] Procedure: CT - Head W/O CPT Code: FULL RESULT: EXAM: CT HEAD EXAM DATE: 12/10/2017 04:09 PM. CLINICAL HISTORY: Visual changes. COMPARISON: HEAD W/O STROKE PROTOCOL 11/25/2014 9:52 AM. TECHNIQUE: Multiaxial CT images were obtained from the foramen magnum to the vertex. Reformats: Sagittal and coronal. IV contrast: None. In accordance with CT protocol optimization, one or more of the following dose reduction techniques were utilized for this exam: automated exposure control, adjustment of mA and/or KV based on patient size, or use of iterative reconstructive technique. FINDINGS: Parenchyma: No intraparenchymal hemorrhage. No evidence of mass, midline shift, or CT findings of acute infarction. Jacques-white differentiation is distinct. Diffuse chronic microangiopathic white matter changes are evident. Extraaxial Spaces: Unremarkable for age. No subdural or epidural collections identified. Ventricles: The ventricles and cortical sulci are enlarged, consistent with age-related tissue loss. Sinuses and orbits: Imaged paranasal sinuses, orbits, and mastoids show no significant abnormality. Bones: No evidence of fracture or calvarial defect. Other: None. IMPRESSION: Generalized age-related cortical atrophic changes without evidence of acute intracranial abnormality. [facility] The above findings were discussed with CIARRA Juan by Dr. Juan Miguel Macias at 16:56 hrs on 12/10/17.
== END 2017-12-10 16:01 | disposition home or self-care (01) ==
LOC: DI 16:00
PROVIDERS: ATTEND Nurse Practitioner
DX: H53.9 Unspecified visual disturbance (principal); G31.9 Degenerative disease of nervous system, unspecified
CPT/HCPCS: 70450

== ENCOUNTER 2017-12-11 13:14 | Outpatient (CLI) | payer OTHER | END 2017-12-11 13:15 | disposition home or self-care (01) | LOC: LAB.WCP 13:14 | PROVIDERS: ATTEND Nurse Practitioner | DX: H53.9 Unspecified visual disturbance (principal); Z79.899 Other long term (current) drug therapy | CPT/HCPCS: 36415; 80175 ==

== ENCOUNTER 2018-03-06 16:59 | Outpatient (CLI) | payer OTHER | END 2018-03-06 17:00 | disposition home or self-care (01) | LOC: LAB 16:59 | PROVIDERS: ATTEND Urology | DX: C61 Malignant neoplasm of prostate (principal) | CPT/HCPCS: 36415; 84153 ==

== ENCOUNTER 2018-04-17 18:16 | Outpatient (CLI) | payer OTHER ==
[2018-04-17 19:23] LABS: LITHIUM 0.34 mmol/L
[2018-04-17 19:48] LABS: BUN - BLOOD UREA NITROGEN 12 mg/dL (6-20); CALCIUM 9.2 mg/dL (8.5-10.3); CARBAMAZEPINE (TEGRETOL) 3.7 ug/mL; CARBON DIOXIDE - CO2 29 mmol/L (21-32); CHLORIDE 103 mmol/L (101-111); CREATININE 1.1 mg/dL (0.6-1.2); GFR - MDRD 66 (>89); GLUCOSE 113 mg/dL (70-100); SODIUM 139 mmol/L (135-145)
== END 2018-04-17 18:17 | disposition home or self-care (01) ==
LOC: LAB 18:16
PROVIDERS: ATTEND Psychiatry & Neurology Psychiatry
DX: Z79.899 Other long term (current) drug therapy (principal)
CPT/HCPCS: 36415; 80048; 80156; 80178; 84443

== ENCOUNTER 2018-04-23 11:07 | Emergency (ER) | payer OTHER ==
[2018-04-23 11:49] LABS: BASOPHILS % (AUTO) 0.7 %; EOSINOPHILS # (AUTO) 0.2 10^3/uL (0.0-0.7); EOSINOPHILS % (AUTO) 3.4 %; HGB - HEMOGLOBIN 14.5 g/dL (14.0-18.0); LYMPHOCYTES # (AUTO) 1.3 10^3/uL (1.5-3.5); LYMPHOCYTES % (AUTO) 20.9 %; MEAN CORPUSCULAR HEMOGLOBIN 31.7 pg (27.0-31.0); MEAN CORPUSCULAR HGB CONC 34.5 g/dL (32.0-36.0); MEAN PLATELET VOLUME 7.1 fL (7.4-11.4); MONOCYTES # (AUTO) 0.5 10^3/uL (0.0-1.0); NEUTROPHILS # (AUTO) 4.1 10^3/uL (1.5-6.6); PLT - PLATELET COUNT 168 10^3/uL (130-450); RED BLOOD COUNT 4.56 10^6/uL (4.70-6.10); RED CELL DISTRIBUTION WIDTH 13.3 % (12.0-15.0); WHITE BLOOD COUNT 6.1 x10^3/uL (4.8-10.8)
[2018-04-23 11:56] LABS: INR 2.8 (0.8-1.2); PT - PROTHROMBIN TIME 30.5 secs (9.9-12.6)
[2018-04-23 12:05] LABS: ALBUMIN 3.9 g/dL (3.2-5.5); ALBUMIN/GLOBULIN RATIO 1.4 (1.0-2.2); BILIRUBIN,TOTAL 0.6 mg/dL (0.2-1.0); CALCIUM 8.7 mg/dL (8.5-10.3); TOTAL PROTEIN 6.6 g/dL (6.7-8.2)
--- NOTE | 2018-04-23 12:29 | XRAY Report ---
Reason: shortness of breath Procedure Date: 04/23/2018 Accession Number: [id number] / [id number] Procedure: XR - Chest 1 View X-Ray CPT Code: 04009 FULL RESULT: EXAM: CHEST RADIOGRAPHY EXAM DATE: 04/23/2018 12:00 PM. CLINICAL HISTORY: Shortness of breath. COMPARISON: Chest 2 view 10/06/2017 11:24 AM. TECHNIQUE: 1 view. FINDINGS: Lungs/Pleura: No focal opacities evident. No pleural effusion. No pneumothorax. Mediastinum: Within exam limitations, the cardiomediastinal contour is stable with mildly ectatic aorta. Other: None. IMPRESSION: No acute cardiopulmonary abnormality. [facility]
--- NOTE | 2018-04-23 12:50 | ED Physician Documentation ---
PD HPI DYSPNEA - Stated complaint Stated Complaint: SOA/SENT BY DOCTOR - Chief complaint Chief Complaint: General - History obtained from History obtained from: Patient, Family - History of Present Illness Timing - onset: How many weeks ago (2) Timing - onset during: Light activity Timing - duration: Weeks (2) Timing - details: Gradual onset, Still present, Waxing and waning Inciting event(s): Exercise Improved by: Rest Worsened by: Exertion Associated symptoms: No: Fever, Cough, Hemoptysis, Wheezing, Chest pain / discomfort, Palpitations, Diaphoresis, Bilateral edema, Unilateral edema Similar symptoms before: Diagnosis (PE) Recently seen: Clinic - Additional information Additional information: 73-year-old male with a history prostate cancer and bipolar disorder has had a pulmonary embolism in July of last year with a saddle embolus. He is on Coumadin and he has been stable on Coumadin for some time. Over the past 2 weeks the patient has developed shortness of breath when he is out with his dog. He had previously found that his shortness of breath would resolve after short period of activity and then would be fine. He is now having shortness of breath does not resolve over time. He has not had cough fever or wheezing. Review of Systems Constitutional: denies: Fever Eyes: denies: Decreased vision Ears: denies: Ear pain Nose: denies: Rhinorrhea / runny nose, Congestion Throat: denies: Sore throat Cardiac: denies: Chest pain / pressure, Palpitations Respiratory: reports: Dyspnea. denies: Cough, Hemoptysis, Wheezing GI: denies: Abdominal Pain, Nausea, Vomiting : denies: Dysuria, Frequency Skin: denies: Rash Musculoskeletal: denies: Neck pain, Back pain, Extremity pain Neurologic: denies: Generalized weakness, Focal weakness, Numbness PD PAST MEDICAL HISTORY - Past Medical History Cardiovascular: None, Pulmonary embolism Respiratory: Sleep apnea, CPAP use GI: None : None, Other HEENT: None Psych: Bipolar disorder Musculoskeletal: Osteoarthritis, Chronic back pain Derm: None - Past Surgical History Past Surgical History: Yes General: Colonoscopy, EGD, Other Ortho: Rotator cuff repair, Other HEENT: Tonsil/Adenoidectomy - Present Medications Home Medications: Ambulatory Orders Medication Instructions Recorded Confirmed Bupropion HCl [Wellbutrin] 100 mg PO TID 10/23/13 08/15/16 busPIRone [Buspar] 15 mg PO QID 01/13/13 11/06/15 lamoTRIgine [LaMICtal] 200 mg PO BID 01/13/13 11/06/15 oxyCODONE [Roxicodone] 5 mg PO Q4-6H 01/13/13 11/06/15 Acetaminophen 1,000 mg PO DAILY 10/16/15 10/16/15 Tamsulosin HCl [Flomax] 0.4 mg ORAL DAILY 10/16/15 11/06/15 Carbamazepine 200 mg PO 08/14/17 [place] 450 mg PO 08/14/17 Warfarin Sodium 7.5 mg PO 10/06/17 Azithromycin [Zithromax] 250 mg PO DAILY #6 tablet 04/23/18 Dexamethasone [Decadron] 4 mg PO 0800 #5 tablet 04/23/18 - Allergies Allergies/Adverse Reactions: Allergies Allergy/AdvReac Type Severity Reaction Status Date / Time latex Allergy Rash Verified 04/23/18 11:27 - Social History Does the pt smoke?: No Smoking Status: Never smoker Does the pt drink ETOH?: No Does the pt have substance abuse?: No - Immunizations Immunizations are current?: Yes PD ED PE NORMAL - Vitals Vital signs reviewed: Yes (hypertensive mild ) - General General: Alert and oriented X 3, No acute distress, Well developed/nourished - HEENT HEENT: Atraumatic, PERRL, EOMI (dry mucous membranes), Other - Neck Neck: Supple, no meningeal sign, No bony TTP - Cardiac Cardiac: RRR, No murmur - Respiratory Respiratory: No respiratory distress, Clear bilaterally - Abdomen Abdomen: Soft, Non tender - Back Back: No CVA TTP, No spinal TTP - Derm Derm: Normal color, Warm and dry, No rash - Extremities Extremities: No deformity, No edema - Neuro Neuro: Alert and oriented X 3, 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, No motor deficit, No sensory deficit, Normal speech Eye Opening: Spontaneous Motor: Obeys Commands Verbal: Oriented GCS Score: 15 - Psych Psych: Normal mood, Normal affect Results - Vitals Vitals: Vital Signs - 24 hr 04/23/18 04/23/18 04/23/18 11:17 12:45 14:30 Temperature 36.6 C Heart Rate 68 55 L 56 L Respiratory 20 13 95 H Rate Blood Pressure 138/88 H 124/70 137/72 H O2 Saturation 97 94 16 L Oxygen O2 Source Room air - EKG (time done) 1125 Rate: Rate (enter#) (64) Rhythm: NSR QRS: Low voltage Compare to prior EKG: Unchanged from prior EKG (SPT 10-06-17 no sig change) Computer interpretation: Agree with computer - Labs Labs: Laboratory Tests 04/23/18 04/23/18 04/23/18 11:40 11:40 11:40 WBC 6.1 RBC 4.56 L Hgb 14.5 Hct 42.0 MCV 92.0 MCH 31.7 H MCHC 34.5 RDW 13.3 Plt Count 168 MPV 7.1 L Neut # (Auto) 4.1 Lymph # (Auto) 1.3 L [place] # (Auto) 0.5 Eos # (Auto) 0.2 Baso # (Auto) 0.0 Absolute Nucleated RBC 0.00 Nucleated RBC % 0.0 PT INR Sodium 136 Potassium 3.8 Chloride 106 Carbon Dioxide 23 Anion Gap 7.0 BUN 10 Creatinine 1.0 Estimated GFR (MDRD) 73 L Glucose 137 H Calcium 8.7 Total Bilirubin 0.6 AST 25 ALT 19 Alkaline Phosphatase 92 Troponin I < 0.04 Total Protein 6.6 L Albumin 3.9 Globulin 2.7 Albumin/Globulin Ratio 1.4 Lipase 30 04/23/18 11:40 WBC RBC Hgb Hct MCV MCH MCHC RDW Plt Count MPV Neut # (Auto) Lymph # (Auto) [place] # (Auto) Eos # (Auto) Baso # (Auto) Absolute Nucleated RBC Nucleated RBC % PT 30.5 H INR 2.8 H Sodium Potassium Chloride Carbon Dioxide Anion Gap BUN Creatinine Estimated GFR (MDRD) Glucose Calcium Total Bilirubin AST ALT Alkaline Phosphatase Troponin I Total Protein Albumin Globulin Albumin/Globulin Ratio Lipase - Rads (name of study) chest 1 view Radiology: Prelim report reviewed (Impression: No acute cardiopulmonary abnormality.), EMP read indepedently, See rad report CTA chest Radiology: Prelim report reviewed (Impression: 1. Negative for acute pulmonary embolism.2 Mild bibasilar groundglass opacity and reticulation is increased. Differential diagnosis includes pneumonitis, viral pneumonia, dependent interstitial edema or hypersensitivity.3 No consolidative pneumonia or pleural effusion.), EMP read indepedently, See rad report Procedures - IVC sono (time) 1310 Bedside IVC sono: IVC measures (cm) (1.01 difficult to find), IVC collapsed c insp (cm) (complete), Dehydration (est 1-2 liter deficit) PD MEDICAL DECISION MAKING - ED course Complexity details: reviewed old records, reviewed results, re-evaluated patient, considered differential, d/w patient ED course: 73-year-old male with a prior history of pulmonary embolism has developed exertional dyspnea that has been persistent for the past 2 weeks and he does have some bit of a cough. His workup today shows what appears to be a dry x-ray of his lungs and he is dehydrated by interrogation of the IVC. He is administered intravenous fluids. He has no significant improvement in his shortness of breath just with fluids and eventually the CT angiogram of the chest was obtained and there is no evidence of pulmonary embolism but there is evidence of atypical infection in the base of both lungs. I discussed the findings with the patient will place him on a course of azithromycin and he will follow-up with his primary care doctor to assure this is resolved. We will also give him a short course of dexamethasone as he does not like the way prednisone makes him feel. Departure - Departure Disposition: 01 Home, Self Care Clinical Impression: Pneumonia Qualifiers: Pneumonia type: due to unspecified organism Laterality: bilateral Lung location: lower lobe of lung Qualified Code(s): J18.1 - Lobar pneumonia, unspecified organism Instructions: ED Pneumonia Adult Follow-Up: César Braga MD [Primary Care Provider] - Prescriptions: Azithromycin [Zithromax] 250 mg PO DAILY #6 tablet Dexamethasone [Decadron] 4 mg PO 0800 #5 tablet Comments: Today we are putting on you on an antibiotic and because you are on Coumadin you will need to have your INR checked in about 3 days. Please follow-up with Dr. Braga.
[2018-04-23] MEDS ORDERED: SODIUM CHLORIDE 0.9% 1,000 ML IV ONE (13:13)
[2018-04-23] MEDS ORDERED: IOVERSOL 320 100 ML VIAL IVP ONE ×2 (15:22→15:49)
--- NOTE | 2018-04-23 16:27 | CT Report ---
Reason: persistent shortness of breath Procedure Date: 04/23/2018 Accession Number: [id number] / [id number] Procedure: CT - Chest Angio (PE) CPT Code: FULL RESULT: EXAM: CT ANGIOGRAM CHEST EXAM DATE: 04/23/2018 03:34 PM. CLINICAL HISTORY: Persistent shortness of breath. COMPARISON: CHEST ANGIO 08/14/2017 1:30 PM. TECHNIQUE: Routine helical imaging was performed through the chest in the pulmonary arterial phase. IV Contrast: OPTI 320 80 ML. Reconstructions: Coronal 3-D MIP reconstructions.Sagittal and coronal. In accordance with CT protocol optimization, one or more of the following dose reduction techniques were utilized for this exam: automated exposure control, adjustment of mA and/or KV based on patient size, or use of iterative reconstructive technique. FINDINGS: Pulmonary Arteries: Diagnostic quality: Adequate through the segmental arteries. No evidence of acute pulmonary embolism. The main pulmonary artery is normal in size. Lungs/Pleura: There is bilateral lower lobe basilar groundglass opacity which is new. There is mild basilar reticulation. No consolidative process. Patient was imaged during partial expiration. Mediastinum: Heart size is normal. There are dense coronary artery calcifications. No pericardial effusion. No mediastinal or hilar lymphadenopathy. Thoracic Aorta: Thoracic aorta is normal in caliber. The aorta is not yet opacified with contrast. Upper Abdomen: There is a gallstone in the gallbladder. Other: None. IMPRESSION: 1. Negative for acute pulmonary embolism. 2. Mild by basilar groundglass opacity and reticulation is increased. Differential diagnosis includes pneumonitis, viral pneumonia, dependent interstitial edema or hypersensitivity. 3. No consolidative pneumonia or pleural effusion. RADIA
[2018-04-23] MEDS ORDERED: cefTRIAXone 1 GM in SODIUM CHLORIDE 0.9% MINIBAG 100 ML IV STA (16:42)
[2018-04-23 17:16] VITALS: BP 147/89
== END 2018-04-23 17:15 | disposition home or self-care (01) ==
LOC: ED 11:07
DX: J18.1 Lobar pneumonia, unspecified organism (principal); E86.0 Dehydration; Z85.46 Personal history of malignant neoplasm of prostate; Z86.711 Personal history of pulmonary embolism; Z79.01 Long term (current) use of anticoagulants
CPT/HCPCS: 36415; 71045; 71275; 80053; 83690; 84484; 85025; 85610; 93005; 96361; 96365; 99284; Q9967

== ENCOUNTER 2018-05-13 06:56 | Outpatient (CLI) | payer OTHER ==
[2018-05-13 07:34] LABS: ALBUMIN 3.9 g/dL (3.2-5.5); ALBUMIN/GLOBULIN RATIO 1.4 (1.0-2.2); BILIRUBIN,TOTAL 0.6 mg/dL (0.2-1.0); CALCIUM 8.8 mg/dL (8.5-10.3); TOTAL PROTEIN 6.7 g/dL (6.7-8.2)
[2018-05-13 07:42] LABS: LITHIUM 0.56 mmol/L
== END 2018-05-13 06:57 | disposition home or self-care (01) ==
LOC: LAB 06:56
PROVIDERS: ATTEND Psychiatry & Neurology Psychiatry
DX: Z79.899 Other long term (current) drug therapy (principal)
CPT/HCPCS: 36415; 80053; 80178

== ENCOUNTER 2018-05-13 15:58 | Outpatient (CLI) | payer OTHER ==
--- NOTE | 2018-05-13 18:28 | CT Report ---
Reason: FLANK PAIN,RIGHT Procedure Date: 05/13/2018 Accession Number: [id number] / [id number] Procedure: CT - Abdomen/Pelvis WO CPT Code: FULL RESULT: EXAM: CT ABDOMEN AND PELVIS (CT KUB) EXAM DATE: 05/13/2018 04:30 PM. CLINICAL HISTORY: FLANK PAIN,RIGHT. COMPARISONS: ABDOMEN/PELVIS W/O 05/13/2018 4:28 PM. TECHNIQUE: Routine axial helical CT imaging was performed through the abdomen and pelvis without IV contrast. Reconstructions: Coronal and sagittal. In accordance with CT protocol optimization, one or more of the following dose reduction techniques were utilized for this exam: automated exposure control, adjustment of mA and/or KV based on patient size, or use of iterative reconstructive technique. FINDINGS: Lung Bases: No acute infiltrate. There is mild cardiomegaly. There are coronary artery and aortic valve calcifications. Right Kidney/Ureter: No stones, hydronephrosis, or hydroureter. No perinephric fat stranding. Left Kidney/Ureter: No stones, hydronephrosis, or hydroureter. No perinephric fat stranding. Other Solid Organs: Noncontrast images of the solid organs are grossly unremarkable. Gallbladder/Bile Ducts: There is cholelithiasis. No evidence of cholecystitis or bile duct dilatation. Peritoneal Cavity: No dilated or thick-walled bowel is seen. Patient has undergone prior distal colon surgery. No intraperitoneal free air or free fluid. No enlarged mesenteric or retroperitoneal lymph nodes. No evidence of appendicitis. Pelvic Organs: No bladder stones. Prostate seeds are in place. No acute pelvic organ abnormalities. Vasculature: No acute vascular abnormalities. Other: None. IMPRESSION: Negative noncontrast CT of the abdomen and pelvis. The kidneys demonstrate no stones or hydronephrosis. No evidence of appendicitis or bowel obstruction. RADIA
== END 2018-05-13 15:59 | disposition home or self-care (01) ==
LOC: DI 15:58
PROVIDERS: ATTEND Family Medicine
DX: R10.9 Unspecified abdominal pain (principal); Z79.899 Other long term (current) drug therapy
CPT/HCPCS: 36415; 74176; 80053; 80178

== ENCOUNTER 2018-05-28 10:46 | Outpatient (CLI) | payer OTHER | END 2018-05-28 10:47 | disposition home or self-care (01) | LOC: SC 10:46 | PROVIDERS: ATTEND Nurse Practitioner Family | DX: G47.33 Obstructive sleep apnea (adult) (pediatric) (principal); G47.31 Primary central sleep apnea | CPT/HCPCS: 99212; 99214 ==

== ENCOUNTER 2018-07-06 18:12 | Outpatient (CLI) | payer OTHER | END 2018-07-06 18:13 | disposition home or self-care (01) | LOC: LAB 18:12 | PROVIDERS: ATTEND Internal Medicine | DX: D84.9 Immunodeficiency, unspecified (principal) | CPT/HCPCS: 36415; 81599; 82784; 82787 ==

== ENCOUNTER 2018-07-12 21:16 | Outpatient (CLI) | payer OTHER | END 2018-07-12 21:17 | disposition home or self-care (01) | LOC: SC 21:16 | PROVIDERS: ATTEND Internal Medicine Pulmonary Disease | DX: G47.33 Obstructive sleep apnea (adult) (pediatric) (principal); G47.31 Primary central sleep apnea | CPT/HCPCS: 95811 ==

== ENCOUNTER 2018-07-26 09:06 | Outpatient (CLI) | payer OTHER | END 2018-07-26 09:07 | disposition home or self-care (01) | LOC: DI 09:06 | PROVIDERS: ATTEND Internal Medicine | DX: I27.20 Pulmonary hypertension, unspecified (principal); I77.810 Thoracic aortic ectasia | CPT/HCPCS: 93306 ==

== ENCOUNTER 2018-07-30 13:15 | Outpatient (CLI) | payer OTHER | END 2018-07-30 13:16 | disposition home or self-care (01) | LOC: SC 13:15 | PROVIDERS: ATTEND Nurse Practitioner Family | DX: G47.33 Obstructive sleep apnea (adult) (pediatric) (principal) | CPT/HCPCS: 99212; 99215 ==

== ENCOUNTER 2018-09-10 18:11 | Outpatient (CLI) | payer OTHER | END 2018-09-10 18:12 | disposition home or self-care (01) | LOC: LAB 18:11 | PROVIDERS: ATTEND Urology | DX: C61 Malignant neoplasm of prostate (principal) | CPT/HCPCS: 36415; 84153 ==

== ENCOUNTER 2018-09-30 08:15 | Outpatient (CLI) | payer OTHER | END 2018-09-30 08:16 | disposition home or self-care (01) | LOC: SC 08:15 | PROVIDERS: ATTEND Nurse Practitioner Family | DX: G47.33 Obstructive sleep apnea (adult) (pediatric) (principal) | CPT/HCPCS: 99212; 99214 ==

== ENCOUNTER 2018-11-11 11:24 | Outpatient (CLI) | payer OTHER ==
[2018-11-11 12:31] VITALS: BP 122/70
--- NOTE | 2018-11-11 12:31 | SLEEP CARE CONSULTATION ---
Information from patient questionnaire entered by Cielo Ackerman. I have reviewed and concur with the information entered by Cielo Ackerman. This document represents the service I personally performed and the decisions made by me, Keri Haines, RN, MSN, BUSINESS CONTINUITY MANAGER. History of Present Illness Previous diagnosis: Severe, Obstructive Sleep Apnea-Hypopnea Syndrome, Central Sleep Apnea-Hypopnea Syndrome AHI: 52.2 Reason for CPAP/BiPAP follow up: other (6 week ) Equipment type: BiPAP Equipment obtained from: [facility] Mask style: Nasal pillows Backup mask available: Yes Last cushion change: no change since fitted last month. HPI additional information: His new Wisp nasal mask fits better then previous masks. It is a large 1x nasal cushion. He feels his mask leaks are better.The new pressure is comfortable but willing to slightly increase if needed. CPAP Compliance Data - Data Reviewed with Patient Average duration of nightly device use: 4.4 Compliance rate %: 50 Current pressure setting (cmH2O): Average residual AHI: 21.2 Central apnea: 0.7 Obstructive apnea: 2.8 Hypopnea: 17.8 unknown Average large leak: 43.9 liters per minute Subjective Missed days of use due to: reports: other (due to difficulty sleeping lying down due to amberly. ) Patient concerns: reports: air blowing in eyes (mild and djusts mask), nasal congestion (intermittent nasal congestion and not affecting his use of CPAP. ). denies: aerophagia, mask discomfort, mask leak noise, condensation in mask/hose, dry mouth, nose, throat, epistaxis Observed to snore while using device: Yes (mild) Current pressure setting perceived as: comfortable On therapy, patient: reports: sleeping better, awakening more refreshed, being more awake and alert during the day, more rested overall. denies: drowsiness while driving Initial [place] Sleepiness Scale score: 8 Current [place] Sleepiness Scale score: 10 Allergies and Home Medications Known drug allergies: No Home medication list reviewed: Yes Allergy and home medication list: Medication List Medication Name (generic/name brand) Strength & Dosage Bupropion 100mg tab one three times daily [place] 600mg tab alternate with 400mg Lamictal 200mg tab one three times daily Buspirone 15mg tab four twice daily Warfarin 7.5mg tab or as directed up to 10.5mg Magnesium / Calcium 400mg / 1200mg ? daily Fish oil 1000mg cap one daily Vitamin C 500mg one daily Vitamin D 5000IU one daily Tussin As needed Zyrtec 10mg tab one daily as needed Allergy List Mold Dust Pollen Physical Exam Blood Pressure: 122/70 Heart Rate: 72 O2 Saturation: 97 Height: 5 ft 9 in Weight (kg): 112.491 kg Body Mass Index: 36.6 BMI Classification: Class 2 Impression and Plan 1. Obstructive Sleep Apnea-Hypopnea Syndrome, moderate , with good treatment compliance and elevated residual apnea control. On BiPAP therapy, the patient mckay s better sleep quality and is more rested overall. It appears that the new mask significantly reduced mask leaks by 30% but still at 43% and affecting his residual AHI. Thus I will adjust his Bipap to 22/14cm H20. He is advised to contact me if the pressure change is uncomfortable. He has not changed the cushion since mask given last month. I placed an order to [facility] for new mask style and asked patient to call. He was shown the name of mask and size to request. I discussed how frequent changing of mask when due could reduce mask leaks due to improved fit. He is also advised to clean his mask cushion with liquid soap and water or a wipe . Rinsing with water may not get all skin oils off which can contribute to mask movement and affect fit. In addition, he can use CPAP wipes for convenience. I also discussed slightly adjusting mask headgear to reduce mask leaks but to keep within comfort. He states he has had more amberly lately affecting his BiPAP use and increased movement in bed cont ributing to mask leaks. He sees his psychiatrist today for evaluation. Since he often tries to relax in recliner when he has amberly and will fall asleep, I advised him to take his BiPAP with him to the recliner to rest to prevent falling asleep without his PAP. He has also gained some weight again and advised how continued weight gain can increase his BiPAP requirements. Evidently weight gain started with lithium use. Patient's apnea severity and rationale for treatment to reduce apnea, improve sleep quality and reduce cardiovascular and cerebrovascular events was reviewed. I also reviewed the benefit of consistent device use of BiPAP for depression/anxiety. * Change BPAP pressure to 22/14 cmH2O * Update new mask Wisp cushion * Implement cleaning methods as discussed. * Adjust headgear * Use BiPAP when rests in recliner. * Notify me if snoring with mask or feeling that the pressure is too much or too little * Attempt to lose weight * Return for follow up in 1-2 months , or sooner if concerns arise I spent 100% of this 35 minute visit face to face with the patient with greater than 50% of this was spent time counseling the patient and coordination of care.
== END 2018-11-11 11:25 | disposition home or self-care (01) ==
LOC: SC 11:24
PROVIDERS: ATTEND Nurse Practitioner Family
DX: G47.33 Obstructive sleep apnea (adult) (pediatric) (principal); G47.31 Primary central sleep apnea
CPT/HCPCS: 99212; 99214

== ENCOUNTER 2018-11-13 09:26 | Outpatient (CLI) | payer OTHER ==
[2018-11-13 10:02] LABS: ALBUMIN 3.9 g/dL (3.2-5.5); ALBUMIN/GLOBULIN RATIO 1.4 (1.0-2.2); ALKALINE PHOSPHATASE 77 IU/L (42-121); ALT ALANINE AMINOTRANSFERASE 18 IU/L (10-60); AST ASPARTATE AMINOTRANSFERASE 20 IU/L (10-42); BILIRUBIN,TOTAL 0.6 mg/dL (0.2-1.0); BUN - BLOOD UREA NITROGEN 11 mg/dL (6-20); CALCIUM 8.8 mg/dL (8.5-10.3); CARBON DIOXIDE - CO2 26 mmol/L (21-32); CHLORIDE 107 mmol/L (101-111); CREATININE 1.1 mg/dL (0.6-1.2); GFR - MDRD 66 (>89); GLUCOSE 118 mg/dL (70-100); SODIUM 141 mmol/L (135-145); TOTAL PROTEIN 6.7 g/dL (6.7-8.2)
[2018-11-13 11:29] LABS: LITHIUM 0.61 mmol/L
== END 2018-11-13 09:27 | disposition home or self-care (01) ==
LOC: LAB 09:26
PROVIDERS: ATTEND Psychiatry & Neurology Psychiatry
DX: Z79.899 Other long term (current) drug therapy (principal)
CPT/HCPCS: 36415; 80053; 80156; 80178

== ENCOUNTER 2018-11-26 08:06 | Outpatient (CLI) | payer OTHER ==
--- NOTE | 2018-11-26 12:15 | Ultrasound Report ---
Reason: ABDOMINAL PAIN Procedure Date: 11/26/2018 Accession Number: [id number] / [id number] Procedure: US - Retroperitoneal CPT Code: FULL RESULT: EXAM: RENAL ULTRASOUND EXAM DATE: 11/26/2018 09:14 AM. CLINICAL HISTORY: ABDOMINAL PAIN. Right flank pain, history of prostate cancer COMPARISON: ABDOMEN/PELVIS W/O 05/13/2018 4:28 PM CHEST ANGIO 04/23/2018 3:33 PM. TECHNIQUE: Real-time scanning was performed with static images obtained. FINDINGS: Right Kidney: 11.8 x 4.7 x 4.9 cm. Lobulated contour. Normal echotexture with no stones, contour-deforming masses, or hydronephrosis. Left Kidney: 12.1 x 5 x 4.2 cm. Lobulated contour. Normal echotexture with no stones, contour-deforming masses, or hydronephrosis. Bladder: Bilateral jets seen. The prevoid bladder volume was 222 cc. The postvoid bladder volume was 35 cc. Other: None. IMPRESSION: Normal renal ultrasound. RADIA
== END 2018-11-26 08:07 | disposition home or self-care (01) ==
LOC: DI 08:06
PROVIDERS: ATTEND Urology
DX: R10.84 Generalized abdominal pain (principal)
CPT/HCPCS: 76770

== ENCOUNTER 2019-01-20 15:43 | Outpatient (CLI) | payer OTHER ==
[2019-01-20 16:55] VITALS: BP 142/76
--- NOTE | 2019-01-20 16:55 | SLEEP CARE CONSULTATION ---
Information from patient questionnaire entered by Cielo Ackerman. I have reviewed and concur with the information entered by Cielo Ackerman. This document represents the service I personally performed and the decisions made by me, Keri Haines, RN, MSN, CON[employer] TECH. History of Present Illness Previous diagnosis: Severe, Obstructive Sleep Apnea-Hypopnea Syndrome, Central Sleep Apnea-Hypopnea Syndrome AHI: 52.2 Reason for CPAP/BiPAP follow up: other (2 month) Equipment type: BiPAP Equipment obtained from: [facility] Mask style: Nasal Mask brand: Respironics (wisp with chinstrap) Backup mask available: Yes Last cushion change: 1 month HPI additional information: New cushion obtained and patient not noticing mask leaks and checking carefully for mask adjustment before sleep. He also uses a chinstrap. Cleaning daily with CPAP wipes. I had reduced the BiPAP due to discomfort of high pressure. CPAP Compliance Data - Data Reviewed with Patient Average duration of nightly device use: 3.95 Compliance rate %: 47 (60 days) Current pressure setting (cmH2O): Average residual AHI: 36.0 Central apnea: 0.5 Obstructive apnea: 5.3 Hypopnea: 23.3 Subjective Patient concerns: reports: other (falling asleep in recliner). denies: aeroph agia, mask discomfort, air blowing in eyes, mask leak noise, condensation in mask/hose, nasal congestion, dry mouth, nose, throat, epistaxis Observed to snore while using device: No Current pressure setting perceived as: comfortable On therapy, patient: reports: awakening more refreshed, being more awake and alert during the day (if able to use it longer). denies: drowsiness while driving Initial [place] Sleepiness Scale score: 8 Current [place] Sleepiness Scale score: 16 Allergies and Home Medications Known drug allergies: Yes (see list) Home medication list reviewed: Yes Allergy and home medication list: Bupropion 100mg tab one three times daily [place] 600mg tab alternate with 400mg Lamictal 200mg tab one three times daily Buspirone 15mg tab four twice daily Warfarin 7.5mg tab or as directed up to 10.5mg Magnesium / Calcium 400mg / 1200mg ? daily Fish oil 1000mg cap one daily Vitamin C 500mg one daily Vitamin D 5000IU one daily Tussin As needed Zyrtec 10mg tab one daily as needed Allergy List Mold Pollen Dust Review of Systems Review of systems same as previous: No (PT for strength and breathing with improvement noted) Physical Exam Blood Pressure: 142/76 Cuff size: long Heart Rate: 63 O2 Saturation: 97 Height: 5 ft 9 in Weight: 249 lb Body Mass Index: 36.7 BMI Classification: Obesity Class 2 Impression and Plan 1. Central and Obstructive Sleep Apnea-Hypopnea Syndrome, moderate, with fair treatment compliance and elevated residual AHI. On BiPAP therapy, the patient has better sleep quality, awakening more refreshed and more awake and alert during the day when able to use his BiPAP longer periods of time. Compliance can be reduced due to his amberly as well as falling asleep in his recliner. Thus he is advised to set a recliner alarm and felt that may assist him to go to bed earlier and use BiPAP longer. Mask leaks continue to be a problem averaging 34.8 liters an hour even with his daily cleaning of mask and attention to checking for a good mask fit and seal before sleep. To see if elevated residual AHI is due partially to mask leaks, I fitted him with an Radha View full face mask, medium, clip attachment. He would prefer the magnetic snaps but I don't have this sample. This is the style used at his sleep study so it is hoped it will work better than current Wisp nasal mask and chinstrap. By controlling the mask leaks and residual AHI, he should get better sleep and feel more rested. I will also increase his BiPAP pressure slightly to 23/44ewS27. He was unable to tolerate the pressure ordered from the titration study and it had to be lowered for comfort. He feels he is ready to increase slightly now to see if benefit. He is again advised to contact me if any pressure concerns. Patient's apnea severity and rationale for treatment to reduce apnea, improve sleep quality and reduce cardiovascular and cerebrovascular events was reviewed. I also reviewed the benefit of consistent device use of BiPAP for hypertension, depression/anxiety. * * Change BiPAP pressure to 23/19 cmH2O * Try Radha View mask * Bedtime recliner alarm. * Consider CPAP pilllow * Notify me if snoring with mask or feeling that the pressure is too much or too little * Attempt to lose weight * Return for follow up in 1-2 months , or sooner if concerns arise After finishing his report, 01/21/19 at 1815 I called patient as I did not recall if I had o showed him a CPAP pillow that could reduce mask leaks. I had not and thus I explained how this works. He states that he feels he sleeps supine most of time and does not use a pillow but will consider. This and other styles can be bought online for about $60. He did mention the new pressure was comfortable but is unsure is there are less mask leaks with new mask. He will call next week to report progress. I spent 100% of this 40 minute visit face to face with the patient with greater than 50% of this was spent time counseling the patient and coordination of care.
== END 2019-01-20 15:44 | disposition home or self-care (01) ==
LOC: SC 15:43
PROVIDERS: ATTEND Nurse Practitioner Family
DX: G47.33 Obstructive sleep apnea (adult) (pediatric) (principal); G47.31 Primary central sleep apnea
CPT/HCPCS: 99212; 99215

== ENCOUNTER 2019-02-17 09:00 | Outpatient (CLI) | payer OTHER ==
[2019-02-17 18:35] LABS: BASOPHILS # (AUTO) 0.1 10^3/uL (0.0-0.1); BASOPHILS % (AUTO) 0.8 %; EOSINOPHILS # (AUTO) 0.2 10^3/uL (0.0-0.7); EOSINOPHILS % (AUTO) 3.2 %; HGB - HEMOGLOBIN 14.5 g/dL (14.0-18.0); LYMPHOCYTES # (AUTO) 1.4 10^3/uL (1.5-3.5); LYMPHOCYTES % (AUTO) 22.6 %; MEAN CORPUSCULAR HEMOGLOBIN 30.9 pg (27.0-31.0); MEAN CORPUSCULAR HGB CONC 32.2 g/dL (32.0-36.0); MEAN PLATELET VOLUME 9.9 fL (7.4-11.4); MONOCYTES # (AUTO) 0.7 10^3/uL (0.0-1.0); MONOCYTES % (AUTO) 11.5 %; NEUTROPHILS # (AUTO) 3.9 10^3/uL (1.5-6.6); NEUTROPHILS % (AUTO) 61.6 %; PLT - PLATELET COUNT 197 10^3/uL (130-450); WHITE BLOOD COUNT 6.3 x10^3/uL (4.8-10.8)
[2019-02-17 18:57] LABS: ALBUMIN 4.4 g/dL (3.2-5.5); ALBUMIN/GLOBULIN RATIO 1.6 (1.0-2.2); BILIRUBIN,TOTAL 0.8 mg/dL (0.2-1.0); CALCIUM 8.9 mg/dL (8.5-10.3); CREATININE 1.1 mg/dL (0.6-1.2); TOTAL PROTEIN 7.2 g/dL (6.7-8.2)
== END 2019-02-17 23:59 | disposition home or self-care (01) ==
LOC: LAB.WCP 09:00
PROVIDERS: ATTEND Nurse Practitioner Family
DX: R10.9 Unspecified abdominal pain (principal)
CPT/HCPCS: 36415; 80053; 85025

== ENCOUNTER 2019-02-28 10:16 | Outpatient (CLI) | payer OTHER ==
[2019-02-28 11:21] LABS: LITHIUM 0.46 mmol/L
== END 2019-02-28 10:17 | disposition home or self-care (01) ==
LOC: LAB 10:16
PROVIDERS: ATTEND Psychiatry & Neurology Psychiatry
DX: Z79.899 Other long term (current) drug therapy (principal); C61 Malignant neoplasm of prostate
CPT/HCPCS: 36415; 80178; 84153; 84443

== ENCOUNTER 2019-03-23 16:07 | Outpatient (CLI) | payer OTHER ==
[2019-03-23 17:52] VITALS: BP 128/72
--- NOTE | 2019-03-23 17:52 | SLEEP CARE CONSULTATION ---
Information from patient questionnaire entered by Cielo Ackerman. I have reviewed and concur with the information entered by Cielo Ackerman. This document represents the service I personally performed and the decisions made by me, Keri Haines, RN, MSN, OUTCOMES SPECIALIST. History of Present Illness Previous diagnosis: Severe, Obstructive Sleep Apnea-Hypopnea Syndrome AHI: 52.2 Reason for follow up: other (2 month) Equipment type: BiPAP Equipment obtained from: [employer] Mask style: Full face (Air Touch) Mask brand: Resmed Backup mask available: Yes Last cushion change: new mask 6 weeks ago HPI additional information: The mask fitted at last visit worked better but still not fitting as well would like. Patient went online and ordered a Air Touch memory foam and is very pleased with the fit and shows much less mask leaks. And it is more more comfortable to use and feels he is sleeping better. He did not try the CPAP pillow as use of any pillow in past causes neck pain. He tried the bedtime alarm a few times and did not matter. The new pressure is comfortable. CPAP Compliance Data - Data Reviewed with Patient Average duration of nightly device use: 3.05 Compliance rate %: 28 (60 days) Current pressure setting (cmH2O): Average residual AHI: 15.1 Central apnea: 0 Obstructive apnea: 13.4 Hypopnea: 1.7 Subjective Patient concerns: reports: air blowing in eyes (rare and adjusts masks with benefit), dry mouth, nose, throat (rare and usually with water defiency. ). denies: aerophagia, mask discomfort, mask leak noise, condensation in mask/hose, nasal congestion, epistaxis Observed to snore while using device: No (but sleeps separately ) Current pressure setting perceived as: comfortable On therapy, patient: reports: sleeping better, awakening more refreshed, being more awake and alert during the day, more rested overall. denies: drowsiness while driving Initial [place] Sleepiness Scale score: 8 Current [place] Sleepiness Scale score: 15 Allergies and Home Medications Known drug allergies: Yes (see list ) Drug allergies reviewed: Yes Home medication list reviewed: Yes (meds reduced by psychiatrist to reduce patient fatigue) Allergy and home medication list: Medication changes are lithium 600mg / 45omg alternate days lamotrigine reduced to 250mg daily warafin 7.5mg usually - other medications no change . Physical Exam Blood Pressure: 128/72 Heart Rate: 65 O2 Saturation: 97 Height: 5 ft 9 in Weight: 245 lb 9.6 oz Body Mass Index: 36.2 BMI Classification: Obesity Class 2 Impression and Plan 1. Obstructive Sleep Apnea-Hypopnea Syndrome, severe, with poor treatment compliance and much better apnea control. His residual reduced from 36 to 15.1. On CPAP therapy, the patient has better sleep quality and is more rested overall. Patient very satisfied with new mask he found online and feels he is sleeping better and more rested during the day. I will make a mask specific prescription for his DME to replace as needed. However, he struggles to sleep a full night with CPAP due to insomnia from difficulty returning to sleep when awakened. He will go to his recliner without CPAP and return to sleep. After much discussion he is now going to take the CPAP with him to the recliner to return to sleep. He can use CPAP while reading and watching TV to relax and return to sleep. If insomnia due to things on his mind, he is to write out as a release and then to engage in quiet relaxing activity. I also discussed the use of a counselor to assist with difficulty going back to sleep due to things on mind with rationale explained. He stated he has tried to work with a few counselors and did not help. The goal is a minimum of 6 hours sleep with CPAP which patient feels he will be able to achieve. The ultimate goal is 7 hours. The overall residual AHI has reduced with new mask and pressure increase despite large mask leaks. He will adjust the mask further and was also advised to consider trimming davidson a little to reduce mask leaks. No pressure change at this time, patient has not been able to tolerate the higher pressures in past and the AHI should reduce with better control of mask leaks. Patient's apnea severity and rationale for treatment to reduce apnea, improve sleep quality and reduce cardiovascular and cerebrovascular events was reviewed. I also reviewed the benefit of consistent device use of CPAP for depression/anxiety. His medications are being modified by his psychiatrist to reduce daytime fatigue. I explained how more sleep with CPAP could reduce his fatigue as well as his depression symptoms with rationale explained. * Continue CPAP pressure at 23/19 cmH2O * Use CPAP with all sleep. * Obtain more sleep nightly * Notify me if snoring with mask or feeling that the pressure is too much or too little * Attempt to lose weight * Call this office if any problems using CPAP * Return for follow up in 2 months , or sooner if concerns arise Time Spent with Patient (minutes): 40 I spent 100% of this visit face to face with the patient with greater than 50% of this was spent time counseling the patient and coordination of care.
== END 2019-03-23 16:08 | disposition home or self-care (01) ==
LOC: SC 16:07
PROVIDERS: ATTEND Nurse Practitioner Family
DX: G47.33 Obstructive sleep apnea (adult) (pediatric) (principal); E66.9 Obesity, unspecified; Z68.36 Body mass index [BMI] 36.0-36.9, adult
CPT/HCPCS: 99212; 99215

== ENCOUNTER 2019-05-13 08:00 | Outpatient (CLI) | payer OTHER ==
[2019-05-13 12:12] LABS: BASOPHILS # (AUTO) 0.1 10^3/uL (0.0-0.1); BASOPHILS % (AUTO) 0.7 %; EOSINOPHILS # (AUTO) 0.2 10^3/uL (0.0-0.7); EOSINOPHILS % (AUTO) 3.2 %; HGB - HEMOGLOBIN 14.6 g/dL (14.0-18.0); LYMPHOCYTES # (AUTO) 1.9 10^3/uL (1.5-3.5); LYMPHOCYTES % (AUTO) 26.9 %; MEAN CORPUSCULAR HEMOGLOBIN 30.4 pg (27.0-31.0); MEAN CORPUSCULAR HGB CONC 32.2 g/dL (32.0-36.0); MEAN CORPUSCULAR VOLUME 94.6 fL (80.0-94.0); MEAN PLATELET VOLUME 9.5 fL (7.4-11.4); MONOCYTES # (AUTO) 0.9 10^3/uL (0.0-1.0); MONOCYTES % (AUTO) 12.2 %; NEUTROPHILS # (AUTO) 3.9 10^3/uL (1.5-6.6); NEUTROPHILS % (AUTO) 56.4 %; PLT - PLATELET COUNT 187 10^3/uL (130-450); RED CELL DISTRIBUTION WIDTH 12.7 % (12.0-15.0); WHITE BLOOD COUNT 6.9 x10^3/uL (4.8-10.8)
[2019-05-13 12:27] LABS: ALBUMIN 4.2 g/dL (3.2-5.5); ALBUMIN/GLOBULIN RATIO 1.4 (1.0-2.2); BILIRUBIN,TOTAL 0.7 mg/dL (0.2-1.0); CALCIUM 9.1 mg/dL (8.5-10.3); CREATININE 1.1 mg/dL (0.6-1.2); TOTAL PROTEIN 7.2 g/dL (6.7-8.2)
== END 2019-05-13 23:59 | disposition home or self-care (01) ==
LOC: LAB.WCP 08:00
PROVIDERS: ATTEND Family Medicine
DX: R10.9 Unspecified abdominal pain (principal)
CPT/HCPCS: 36415; 80053; 82150; 83690; 85025

== ENCOUNTER 2019-05-19 09:17 | Outpatient (CLI) | payer OTHER ==
[2019-05-19] MEDS ORDERED: IOVERSOL 320 50 ML VIAL ONE (09:27)
[2019-05-19] MEDS ORDERED: IOVERSOL 320 100 ML VIAL IVP ONE ×2 (09:27→13:08)
[2019-05-19] MEDS ORDERED: IOVERSOL 320 50 ML VIAL PO ONE (13:08)
--- NOTE | 2019-05-20 15:13 | CT Report ---
Reason: ABD PAIN Procedure Date: 05/19/2019 Accession Number: [id number] / [id number] Procedure: CT - Abdomen/Pelvis W CPT Code: Final Report FULL RESULT: EXAM: CT ABDOMEN AND PELVIS EXAM DATE: 05/19/2019 10:43 AM. CLINICAL HISTORY: Chronic constipation. Left upper quadrant abdominal pain. COMPARISONS: None. TECHNIQUE: Routine helical CT imaging was performed through the abdomen and pelvis. IV contrast: 100 mL Optiray 320. Enteric contrast: No. Reconstructions: Coronal and sagittal. In accordance with CT protocol optimization, one or more of the following dose reduction techniques were utilized for this exam: automated exposure control, adjustment of mA and/or KV based on patient size, or use of iterative reconstructive technique. FINDINGS: Lung Bases: Mild dependent atelectasis. Liver: Diffuse low attenuation of the hepatic parenchyma with respect to the spleen, indicating steatosis. A 1.1 x 0.8 cm hypervascular focus in segment 7/6 likely represents a flash filling hemangioma (3/19). Gallbladder/Bile Ducts: Cholelithiasis. No gallbladder distention or pericholecystic fat stranding to suggest acute cholecystitis. No biliary ductal dilatation. Spleen: Normal. Pancreas: Normal. Adrenal Glands: Normal. Kidneys and Ureters: 1.2 cm cortical cyst in the posterior right upper pole (3/34). No stones, hydronephrosis, or hydroureter. Peritoneal Cavity/Bowel: Moderate colonic stool burden. Descending colon diverticulosis. Post segmental sigmoidectomy with colocolic anastomosis in the pelvis. No evidence for bowel obstruction or acute inflammatory process. The appendix is not seen. No free fluid, pneumoperitoneum, or adenopathy. Pelvic Organs: Brachytherapy seeds within the prostate gland. The bladder is within normal limits. Vasculature: Mild atherosclerotic calcifications within the aorta and iliac arteries. Bones: Moderate degenerative disk disease and facet arthropathy in the lower lumbar spine. No acute bony abnormality. Other: Small fat-containing bilateral unguinal hernias. IMPRESSION: 1. No acute inflammatory or obstructive process identified to explain abdominal pain. 2. Descending colon diverticulosis without CT evidence for acute diverticulitis. 3. Post segmental sigmoidectomy with colocolic anastomosis in the pelvis. RADIA
== END 2019-05-19 09:18 | disposition home or self-care (01) ==
LOC: DI 09:17
PROVIDERS: ATTEND Family Medicine
DX: R10.9 Unspecified abdominal pain (principal); K57.30 Diverticulosis of large intestine without perforation or abscess without bleeding; Z90.49 Acquired absence of other specified parts of digestive tract
CPT/HCPCS: 74177; Q9967

== ENCOUNTER 2019-05-24 16:19 | Outpatient (CLI) | payer OTHER ==
--- NOTE | 2019-05-24 17:32 | SLEEP CARE CONSULTATION ---
Information from patient questionnaire entered by Cielo Ackerman. I have reviewed and concur with the information entered by Cielo Ackerman. This document represents the service I personally performed and the decisions made by me, Keri Haines, RN, MSN, CEMENTER MACHINE. History of Present Illness Previous diagnosis: Severe, Obstructive Sleep Apnea-Hypopnea Syndrome, Central Sleep Apnea-Hypopnea Syndrome AHI: 52.2 Reason for follow up: other (2 month) Equipment type: BiPAP Equipment obtained from: [employer] Mask style: Full face (Air Touch) Mask brand: Resmed Backup mask available: Yes Last cushion change: a few weeks ago CPAP Compliance Data - Data Reviewed with Patient Average duration of nightly device use: 3.75 Compliance rate %: 38 (60 days) Current pressure setting (cmH2O): Average residual AHI: 19.1 Subjective Patient concerns: reports: dry mouth, nose, throat (occasional ). denies: aerophagia, mask discomfort, air blowing in eyes, mask leak noise, condensation in mask/hose, nasal congestion, epistaxis, other Observed to snore while using device: No Current pressure setting perceived as: comfortable On therapy, patient: reports: sleeping better, awakening more refreshed, being more awake and alert during the day, more rested overall. denies: drowsiness while driving Initial [place] Sleepiness Scale score: 8 Current [place] Sleepiness Scale score: 13 (patient states he is feeling much more rested. ) Allergies and Home Medications Known drug allergies: Yes (see list ) Home medication list reviewed: Yes Allergy and home medication list: Medication Name (generic/name brand) Strength & Dosage Bupropion 100mg tab one twice daily [place] 600mg tab alternate with 400mg Lamictal 150mg tab one daily Buspirone 15mg tab 2 twice daily Warfarin 7.5mg tab or as directed up to 10.5mg Magnesium / Calcium 400mg -1200mg tab one daily Fish oil 1000mg cap one daily Vitamin C 500mg one daily Vitamin D 5000IU one daily Tussin As needed Zyrtec 10mg tab one daily as needed Review of Systems Review of systems same as previous: Yes Physical Exam Blood Pressure: 130/70 Cuff size: long Heart Rate: 68 O2 Saturation: 96 Height: 5 ft 9 in Weight: 244 lb Body Mass Index: 36.0 BMI Classification: Obese Impression and Plan 1. Obstructive Sleep Apnea-Hypopnea Syndrome, severe, with fair treatment compliance and elevated residual AHI a little higher this past 2 months. Mask leaks continue to be very large which will contribute to higher AHI. On CPAP therapy, the patient has better sleep quality and is more rested overall. He is sleeping longer hours since new mask and is pleased with benefit. He only needs to CPAP to recliner occasionally now. However, he has increased his average use from 3 hours to 4 hours. Thus he is advised to continue to strive more sleep with CPAP with minimum goal of 6 hours. He was advised to change cushion regularly to reduce mask leaks and clean mask daily. In addition, he is to keep davidson trimmed. Cleaning PAP equipment questions answered and importance of regular cleaning discussed. Daily cleaning of the mask can be incorporated into routine by completing during time when patient brushes teeth in the morning. Regularly cleaning the mask will reduce incidence of skin irritation that can occur from accumulation of skin oils on the skin. The humidifier is recommended to be emptied daily to allow it to dry out thoroughly between use. The rest of the equipment should be cleaned weekly. Reference sheet given. Patient advised to check manual for further questions.. For questions about cleaning devices to be bought I informed patient that recently the FDA is not recommending due to ozone of one and infra red is either not effective or could cause damage to health. Questions about supplies and replacement were answered. In addition, I gave patient a copy of the CPAP supply replacement schedule and discussed rationale for updating equipment. The patients BiPAP pressure will be increased slightly to 24/20 cmH20 For elevation of residual AHI. Patient advised to contact me if pressure change is uncomfortable so that it can be adjusted. Goals for apnea control discussed. Patient's apnea severity and rationale for treatment to reduce apnea, improve sleep quality and reduce cardiovascular and cerebrovascular events was reviewed. I also reviewed the benefit of consistent device use of BiPAP for depression / anxiety. * * Change BiPAP pressure to 24 / 20 cmH2O * Notify me if snoring with mask or feeling that the pressure is too much or too little * Implement methods to reduce mask leaks. * Strive for more sleep with CPAP. * Attempt to lose weight * Call this office if any problems using CPAP * Return for follow up in 2 months, or sooner if concerns arise Time Spent with Patient (minutes): 40 I spent 100% of this visit face to face with the patient with greater than 50% of this was spent time counseling the patient and coordination of care.
[2019-05-24 17:33] VITALS: BP 130/70
== END 2019-05-24 16:20 | disposition home or self-care (01) ==
LOC: SC 16:19
PROVIDERS: ATTEND Nurse Practitioner Family
DX: G47.33 Obstructive sleep apnea (adult) (pediatric) (principal); E66.9 Obesity, unspecified; Z68.36 Body mass index [BMI] 36.0-36.9, adult
CPT/HCPCS: 99212; 99215

== ENCOUNTER 2019-07-08 08:00 | Outpatient (CLI) | payer OTHER ==
[2019-07-08 16:57] LABS: LITHIUM 0.94 mmol/L
[2019-07-08 16:59] LABS: ALBUMIN 4.4 g/dL (3.2-5.5); ALBUMIN/GLOBULIN RATIO 1.4 (1.0-2.2); ALKALINE PHOSPHATASE 81 IU/L (42-121); ALT ALANINE AMINOTRANSFERASE 22 IU/L (10-60); AST ASPARTATE AMINOTRANSFERASE 18 IU/L (10-42); BILIRUBIN,TOTAL 0.6 mg/dL (0.2-1.0); BUN - BLOOD UREA NITROGEN 13 mg/dL (6-20); CARBAMAZEPINE (TEGRETOL) 7.8 ug/mL; CARBON DIOXIDE - CO2 27 mmol/L (21-32); CHLORIDE 108 mmol/L (101-111); CREATININE 1.2 mg/dL (0.6-1.2); GLUCOSE 102 mg/dL (70-100); SODIUM 139 mmol/L (135-145); TOTAL PROTEIN 7.5 g/dL (6.7-8.2)
== END 2019-07-08 23:59 | disposition home or self-care (01) ==
LOC: LAB.WCP 08:00
PROVIDERS: ATTEND Psychiatry & Neurology Psychiatry
DX: Z79.899 Other long term (current) drug therapy (principal)
CPT/HCPCS: 36415; 80053; 80156; 80178

== ENCOUNTER 2019-07-16 16:30 | Outpatient (CLI) | payer OTHER | END 2019-07-16 23:59 | disposition home or self-care (01) | LOC: LAB.R 16:30 | PROVIDERS: ATTEND Family Medicine | DX: L02.91 Cutaneous abscess, unspecified (principal) | CPT/HCPCS: 87070; 87205 ==

== ENCOUNTER 2019-07-19 18:20 | Observation (INO) | payer OTHER, MEDICARE ==
[2019-07-19] MEDS ORDERED: SODIUM CHLORIDE FLUSH 0.9% 10 ML SYRINGE IVP PRN (19:07)
--- NOTE | 2019-07-19 19:07 | ED Physician Documentation ---
PD HPI FOCAL NEURO - Stated complaint Stated Complaint: WORD SALAD - Chief complaint Chief Complaint: Neuro - History obtained from History obtained from: Patient, Family - History of Present Illness Timing - onset: How many days ago (2) Timing - duration: Days (2) Timing - details: Abrupt onset Weakness: No: Face, Arm, Hand, Leg, Foot, Right, Left Numbness: No: Face, Arm, Hand, Leg, Foot, Right, Left Associated symptoms: No: Headache, Nausea / vomiting, Seizure, Syncope, Fall, Head injury, Chest pain, Neck pain, Back pain, Fever Contributing factors: positive: Anticoagulated (On warfarin, history of PE) Baseline status: positive: A&OX3, ambulatory, indep Recently seen: Not recently seen - Additional information Additional information: 74-year-old male presents to the emergency department with expressive aphasia and word finding difficulty for the past 2 days. Nothing makes it better or worse. Has not had this happen before. No other neurological deficits. Review of Systems Ten Systems: 10 systems reviewed and negative Constitutional: denies: Fever, Chills Nose: denies: Rhinorrhea / runny nose Throat: denies: Sore throat Cardiac: denies: Chest pain / pressure Respiratory: denies: Cough, Wheezing GI: denies: Abdominal Pain, Vomiting, Diarrhea Skin: denies: Rash Musculoskeletal: denies: Neck pain, Back pain Neurologic: denies: Focal weakness, Numbness, Confused, Altered mental status, Headache, Head injury, LOC PD PAST MEDICAL HISTORY - Past Medical History Cardiovascular: None, Pulmonary embolism Respiratory: Sleep apnea, CPAP use GI: None : None, Other HEENT: None Psych: Bipolar disorder Musculoskeletal: Osteoarthritis, Chronic back pain Derm: None - Past Surgical History Past Surgical History: Yes General: Colonoscopy, EGD, Other Ortho: Rotator cuff repair, Other HEENT: Tonsil/Adenoidectomy - Present Medications Home Medications: Ambulatory Orders Medication Instructions Recorded Confirmed Bupropion HCl [Wellbutrin] 100 mg PO TID 01/13/13 11/06/15 busPIRone [Buspar] 15 mg PO QID 01/13/13 11/06/15 lamoTRIgine [LaMICtal] 200 mg PO BID 01/13/13 11/06/15 oxyCODONE [Roxicodone] 5 mg PO Q4-6H 01/13/13 11/06/15 Acetaminophen 1,000 mg PO DAILY 10/16/15 10/16/15 Tamsulosin HCl [Flomax] 0.4 mg ORAL DAILY 10/16/15 11/06/15 Carbamazepine 200 mg PO 08/14/17 [place] 450 mg PO 08/14/17 Warfarin Sodium 7.5 mg PO 10/06/17 Azithromycin [Zithromax] 250 mg PO DAILY #6 tablet 04/23/18 dexAMETHasone [Decadron] 4 mg PO 0800 #5 tablet 04/23/18 - Allergies Allergies/Adverse Reactions: Allergies Allergy/AdvReac Type Severity Reaction Status Date / Time iodine Allergy Unknown Verified 04/24/18 10:21 latex Allergy Rash Verified 04/23/18 11:27 sildenafil [From Viagra] Allergy Unknown Verified 04/24/18 10:21 - Social History Does the pt smoke?: No Smoking Status: Never smoker Does the pt drink ETOH?: No Does the pt have substance abuse?: No - Immunizations Immunizations are current?: Yes PD ED PE NORMAL - Vitals Vital signs reviewed: Yes - General General: No acute distress, Well developed/nourished, Other (Alert, oriented to person and place, did not know the month or year.) - HEENT HEENT: Atraumatic, PERRL, Ears normal, Moist mucous membranes - Neck Neck: Supple, no meningeal sign - Cardiac Cardiac: RRR, Strong equal pulses - Respiratory Respiratory: No respiratory distress, Clear bilaterally - Abdomen Abdomen: Soft, Non tender, Non distended - Derm Derm: Warm and dry, No rash - Extremities Extremities: No edema, No calf tenderness / cord - Neuro Neuro: Alert and oriented X 3, position classifier 2-12 intact, No motor deficit, No sensory deficit Eye Opening: Spontaneous Motor: Obeys Commands Verbal: Confused GCS Score: 14 - Psych Psych: Normal mood, Normal affect NIHSS - Time Time: 18:32 - Level of Consciousness Level of consciousness: (0) Alert, Keenly responsive LOC Questions: (1) Answers one Q correctly LOC Commands: (0) Performs both correctly - Gaze Best Gaze: (0) Normal - Visual Visual: (0) No loss - Facial Palsy Facial Palsy: (0) Normal, symmetrical movement - Motor Arms (both separate) Motor Arm (right): (0) No drift Motor Arm (left): (0) No drift - Motor Legs (both separate) Motor Leg (right): (0) No drift Motor Leg (left): (0) No drift - Limb Ataxia Limb Ataxia: (0) Absent - Sensory Sensory: (0) Normal - Best Language Best Language: (1) [id number] - Dysarthria Dysarthria: (0) Normal - Extinction and Inattention (formally neg Extinction and inattention: (0) No abnormality - Total Score/Results Total Score/Result: 2 Results - Vitals Vitals: Vital Signs - 24 hr 07/19/19 07/19/19 18:31 18:36 Temperature 36.8 C Heart Rate 69 69 Respiratory 27 H 11 L Rate Blood Pressure 178/110 H 143/73 H O2 Saturation 96 96 Oxygen O2 Source Room air - EKG (time done) 1831 Rate: Rate (enter#) (68) Rhythm: NSR [place]: Normal Intervals: Normal [place] QRS: Normal Ischemia: Other (flattened t waves) - Labs Labs: Laboratory Tests 07/19/19 07/19/19 07/19/19 18:34 19:05 19:05 WBC 9.2 RBC 4.73 Hgb 15.2 Hct 44.9 MCV 94.9 H MCH 32.1 H MCHC 33.9 RDW 13.1 Plt Count 191 MPV 9.4 Neut # (Auto) 6.6 Lymph # (Auto) 1.4 L [place] # (Auto) 0.9 Eos # (Auto) 0.3 Baso # (Auto) 0.0 Absolute Nucleated RBC 0.00 Nucleated RBC % 0.0 PT 22.2 H INR 2.0 H APTT 40.2 H Sodium Potassium Chloride Carbon Dioxide Anion Gap BUN Creatinine Estimated GFR (MDRD) Glucose POC Whole Bld Glucose 127 H Calcium Total Bilirubin AST ALT Alkaline Phosphatase Total Protein Albumin Globulin Albumin/Globulin Ratio Lipase 07/19/19 19:05 WBC RBC Hgb Hct MCV MCH MCHC RDW Plt Count MPV Neut # (Auto) Lymph # (Auto) [place] # (Auto) Eos # (Auto) Baso # (Auto) Absolute Nucleated RBC Nucleated RBC % PT INR APTT Sodium 137 Potassium 3.9 Chloride 107 Carbon Dioxide 23 Anion Gap 7.0 BUN 13 Creatinine 1.1 Estimated GFR (MDRD) 65 L Glucose 121 H POC Whole Bld Glucose Calcium 9.1 Total Bilirubin 0.9 AST 19 ALT 25 Alkaline Phosphatase 87 Total Protein 7.4 Albumin 4.4 Globulin 3.0 Albumin/Globulin Ratio 1.5 Lipase 35 - Rads (name of study) Head CT Radiology: Prelim report reviewed, EMP read contemporaneously, See rad report (No acute intracranial abnormality. ) PD MEDICAL DECISION MAKING - ED course Complexity details: reviewed results, re-evaluated patient, considered differential, d/w patient, d/w java developer consultant ED course: Patient with expressive aphasia for the past 2 days. Likely stroke. Will need an MRI and further work-up. He is allergic to iodine, therefore CT angiograms were not performed in the emergency department. Discussed the case with Dr. Anne, hospitalist who accepts This document was made in part using voice recognition software. While efforts are made to proofread this document, sound alike and grammatical errors may occur. Departure - Departure Disposition: ED Place in Observation Clinical Impression: Expressive aphasia Condition: Stable Discharge Date/Time: 07/19/19 19:37
--- NOTE | 2019-07-19 19:10 | CT Report ---
Reason: expressive aphasia Procedure Date: 07/19/2019 Accession Number: [id number] / [id number] Procedure: CT - HEAD WO CPT Code: Final Report FULL RESULT: EXAM: CT HEAD EXAM DATE: 07/19/2019 06:56 PM. CLINICAL HISTORY: Expressive aphasia. COMPARISON: HEAD W/O 12/10/2017 4:09 PM. TECHNIQUE: Multiaxial CT images were obtained from the foramen magnum to the vertex. Reformats: Sagittal and coronal. IV contrast: None. In accordance with CT protocol optimization, one or more of the following dose reduction techniques were utilized for this exam: automated exposure control, adjustment of mA and/or KV based on patient size, or use of iterative reconstructive technique. FINDINGS: Parenchyma: No intraparenchymal hemorrhage. No evidence of mass, midline shift, or CT findings of infarction. Jacques-white differentiation is distinct. Extraaxial Spaces: Mild cortical atrophy. No subdural or epidural collections identified. Ventricles: Normal in size and position. Sinuses and Orbits: Imaged paranasal sinuses, orbits, and mastoids show no significant abnormality. Bones: No evidence of fracture or calvarial defect. Other: None. IMPRESSION: No acute intracranial abnormality. RADIA
--- NOTE | 2019-07-19 19:19 | HISTORY & PHYSICAL EXAMINATION ---
Chief Complaint - Chief Complaint Chief Complaint: expressive aphasia History of Present Illness - Admitted From Admitted From:: [facility] ED - History Obtained From Records Reviewed: yes History obtained from: patient and spouse Exam Limitations: ex[ressive aphasia - History of Present Illness HPI Comment/Other: Patient is 74-year-old male with history of PE/DVT on Coumadin, bipolar disorder on lithium, anxiety who presented to the ED with concern of expressive aphasia. A significant portion of this history was provided by the patient's because of limitations due to the aphasia. She explains that the patient having difficulty finding words. He is aware of this difficulty. He understands her when she speaks and the few words he tries to speak as sensible. This has been going on for a few days but got significantly worse 2 days ago. She called the on-call line for the patient's primary care physician and was advised to come to the emergency room. His also adds that he has been having shuffling gait and his hands have been trembling.This has been going on for the past 1 month but has gotten progressively worse this past week. He denies dysphagia, or vision changes. However he has been experiencing headaches. On a separate note his reports that he has been dyspneic lately. He has also been sleeping more. He has a diagnosis of obstructive sleep apnea and is supposed to use a CPAP however he mostly sleeps in his recliner and does not use the CPAP. CT scan of the brain without contrast done in the ED was unremarkable. Patient also had a lithium level done which was 1.5. As a result of his symptoms he was presented for admission for further work-up. History - Past Medical History Cardiovascular: reports: None, Pulmonary embolism Respiratory: reports: Sleep apnea, CPAP use GI: reports: None : reports: None, Other HEENT: reports: None Psych: reports: Bipolar disorder Musculoskeletal: reports: Osteoarthritis, Chronic back pain Derm: reports: None MRSA Hx?: No - Past Surgical History General: reports: Colonoscopy, EGD, Other Ortho: reports: Rotator cuff repair, Other HEENT: reports: Tonsil/Adenoidectomy - Family & Social History Family History: Mother: , Cancer (ovarian cancer), Father: , [place] Living arrangement: At home Living Situation: With spouse/s.o. - Substance History Use: Uses substance without health or social issues: NONE - POLST Patient has POLST: No POLST Status: Full Code Meds/Allgy - Home Medications Home Medications: Ambulatory Orders Medication Instructions Recorded Confirmed Bupropion HCl [Wellbutrin] 100 mg PO TID 01/13/13 11/06/15 busPIRone [Buspar] 15 mg PO QID 01/13/13 11/06/15 lamoTRIgine [LaMICtal] 200 mg PO BID 01/13/13 11/06/15 oxyCODONE [Roxicodone] 5 mg PO Q4-6H 01/13/13 11/06/15 Acetaminophen 1,000 mg PO DAILY 10/16/15 10/16/15 Tamsulosin HCl [Flomax] 0.4 mg ORAL DAILY 10/16/15 11/06/15 Carbamazepine 200 mg PO 08/14/17 [place] 450 mg PO 08/14/17 Warfarin Sodium 7.5 mg PO 10/06/17 Azithromycin [Zithromax] 250 mg PO DAILY #6 tablet 04/23/18 dexAMETHasone [Decadron] 4 mg PO 0800 #5 tablet 04/23/18 - Allergies Allergies/Adverse Reactions: Allergies Allergy/AdvReac Type Severity Reaction Status Date / Time iodine Allergy Unknown Verified 04/24/18 10:21 latex Allergy Rash Verified 04/23/18 11:27 sildenafil [From Viagra] Allergy Unknown Verified 04/24/18 10:21 Review of Systems - Constitutional Constitutional: denies: Fatigue, Fever, Chills, Weakness - Eyes Eyes: denies: Pain, Blurred vision, Vision loss, Dipolpia - Ears, Nose & Throat Ears, Nose & Throat: denies: Tinnitus, Vertigo, Sore throat - Cardiovascular Cariovascular: denies: Chest pain, Edema, Lightheadedness, Syncope - Respiratory Respiratory: reports: SOB at rest, SOB with exertion, Apnea. denies: Cough, Sputum production, Wheezing - Gastrointestinal Gastrointestinal: reports: Constipation. denies: Abdominal pain, Abdominal distention, Nausea, Vomiting, Coffee grounds emesis, Reflux/heartburn - Genitourinary Genitourinary: denies: Dysuria, Frequency, Urgency, Hematuria - Musculoskeletal Musculoskeletal: denies: Muscle pain, Back pain, Muscle aches - Integumentary Integumentary: denies: Rash, Pruritis, Lesions - Neurological Neurological: reports: Headache, Abnormal gait (shuffling), Other. denies: Gene ral weakness, Focal weakness, Dizziness, Numbness - Psychiatric Psychiatric: reports: Depression, Anxiety - Endocrine Endocrine: denies: Polyuria, Polydypsia - Hematologic/Lymphatic Hematologic/Lymphatic: denies: Anemia, Bruising, Petechiae Prior Level of Functionality: Patient has been independent of activities of daily living. However he started having shuffling gait about a month ago and trembling Exam - Vital Signs Vital Signs: Vital Signs x48h Temp Pulse Resp BP Pulse Ox 07/19/19 18:36 69 11 L 143/73 H 96 07/19/19 18:31 36.8 C 69 27 H 178/110 H 96 - Physical Exam General Appearance: positive: No acute distress, Alert Eyes Bilateral: positive: PERRL, EOMI ENT: positive: Dry mucous membranes Neck: positive: No JVD, Trachea midline Respiratory: positive: Chest non-tender, No respiratory distress, Breath sounds nml. negative: Wheezes, Rales, Rhonchi Cardiovascular: positive: Regular rate & rhythm, No murmur, Irregularly irregular Back: positive: Nml inspection, CVA tenderness (R) Skin: positive: Color nml, No rash, Warm, Dry Extremities: positive: Non-tender, Full ROM, Nml appearance, No pedal edema Neurologic/Psychiatric: positive: Oriented x3, Other (Expressive aphasia) Conclusion/Plan - Problem List (1) Expressive aphasia Conclusion/Plan: Work-up for CVA in process. MRI of brain without contrast, carotid ultasound and 2D echo ordered. Lipid panel and hemoglobin A1c pending Neurochecks every shift. We will start the patient on atorvastatin 20 mg nightly PT OT and speech eval in the morning (2) Bipolar disorder Conclusion/Plan: Patient has accidentally been taking too much of his lithium. This was just discovered about 5 days ago and the dose was readjusted. Patient's lithium level was 1.5. Will hold lithium for now. Continue IV hydration. Recheck lithium level daily We will monitor for any EKG changes. Will resume patient's carbamazepine and Lamictal once verified (3) Anxiety Conclusion/Plan: On buspirone (4) History of pulmonary embolism Conclusion/Plan: Patient is on Coumadin. Will continue once verified. Check INR daily. INR was 2.0 (5) BPH (benign prostatic hyperplasia) Conclusion/Plan: Will resume tamsulosin once verified - Lab Results Fish Bones: 07/19/19 19:05 07/19/19 19:05 Core Measures - Anticipated LOS I expect patient to be DC'd or transferred within 96 hours.: Yes - DVT/VTE - Prophylaxis VTE/DVT Device ordered at admit?: Yes
[2019-07-19 19:27] LABS: BASOPHILS % (AUTO) 0.4 %; EOSINOPHILS # (AUTO) 0.3 10^3/uL (0.0-0.7); EOSINOPHILS % (AUTO) 2.7 %; HGB - HEMOGLOBIN 15.2 g/dL (14.0-18.0); LYMPHOCYTES # (AUTO) 1.4 10^3/uL (1.5-3.5); LYMPHOCYTES % (AUTO) 14.7 %; MEAN CORPUSCULAR HEMOGLOBIN 32.1 pg (27.0-31.0); MEAN CORPUSCULAR HGB CONC 33.9 g/dL (32.0-36.0); MEAN CORPUSCULAR VOLUME 94.9 fL (80.0-94.0); MEAN PLATELET VOLUME 9.4 fL (7.4-11.4); MONOCYTES # (AUTO) 0.9 10^3/uL (0.0-1.0); MONOCYTES % (AUTO) 9.3 %; NEUTROPHILS # (AUTO) 6.6 10^3/uL (1.5-6.6); NEUTROPHILS % (AUTO) 72.6 %; PLT - PLATELET COUNT 191 10^3/uL (130-450); RED BLOOD COUNT 4.73 10^6/uL (4.70-6.10); RED CELL DISTRIBUTION WIDTH 13.1 % (12.0-15.0); WHITE BLOOD COUNT 9.2 x10^3/uL (4.8-10.8)
[2019-07-19 19:33] LABS: PT - PROTHROMBIN TIME 22.2 secs (9.9-12.6)
[2019-07-19 19:41] LABS: ALBUMIN 4.4 g/dL (3.2-5.5); ALBUMIN/GLOBULIN RATIO 1.5 (1.0-2.2); BILIRUBIN,TOTAL 0.9 mg/dL (0.2-1.0); CALCIUM 9.1 mg/dL (8.5-10.3); CREATININE 1.1 mg/dL (0.6-1.2); PARTIAL THROMBOPLASTIN TIME 40.2 secs (24.9-33.3); TOTAL PROTEIN 7.4 g/dL (6.7-8.2)
[2019-07-19] MEDS ORDERED: ATORVASTATIN 40 MG TABLET PO SCH (21:00)
[2019-07-19 22:10] LABS: BILIRUBIN,URINE NEGATIVE (NEGATIVE); CLARITY,URINE CLEAR (CLEAR); GLUCOSE, URINE (UA) NEGATIVE (NEGATIVE); KETONES,URINE (UA) NEGATIVE (NEGATIVE); LEUKOCYTE ESTERASE, URINE NEGATIVE (NEGATIVE); NITRITE,URINE NEGATIVE (NEGATIVE); OCCULT BLOOD,URINE NEGATIVE (NEGATIVE); PROTEIN,URINE NEGATIVE (NEGATIVE); UROBILINOGEN,URINE 0.2 (NORMAL) E.U./dL (NORMAL)
[2019-07-20] MEDS: SODIUM CHLORIDE FLUSH 0.9% 10 ML SYRINGE IVP SCH ×2 (00:38→09:16)
[2019-07-20] MEDS ORDERED: ACETAMINOPHEN 325 MG TABLET PO PRN (00:54)
--- NOTE | 2019-07-20 03:49 | Ultrasound Report ---
Reason: expressive aphasia Procedure Date: 07/20/2019 Accession Number: [id number] / [id number] Procedure: US - Carotid Doppler Complete CPT Code: Final Report FULL RESULT: EXAM: BILATERAL CAROTID AND VERTEBRAL ARTERY DUPLEX DOPPLER ULTRASOUND EXAM DATE: 07/20/2019 01:45 AM CLINICAL HISTORY: Expressive aphasia. COMPARISON: CHEST ANGIO 04/23/2018 3:33 PM, HEAD WO 07/19/2019 6:53 PM. TECHNIQUE: Grayscale imaging, color Doppler, and duplex spectral Doppler were used to evaluate the carotid and vertebral arteries bilaterally. Static images were obtained. FINDINGS: Mild atherosclerotic disease bilaterally. Normal antegrade flow is present in bilateral vertebral arteries. VELOCITIES (cm/s): Right CCA mid: PSV 77 cm/s CCA dist: PSV 64 cm/s ICA prox: PSV 76 cm/s, EDV 23 cm/s ICA mid: PSV 76 cm/s, EDV 20 cm/s ICA dist: PSV 89 cm/s, EDV 23 cm/s ECA: PSV 125 cm/s Vert: PSV 47 cm/s ICA/CCA: 1.15 Left CCA mid: PSV 79 cm/s CCA dist: PSV 96 cm/s ICA prox: PSV 62 cm/s, EDV 20 cm/s ICA mid: PSV 48 cm/s, EDV 10 cm/s ICA dist: PSV 54 cm/s, EDV 13 cm/s ECA: PSV 130 cm/s Vert: PSV 37 cm/s ICA/CCA: 0.64 ICA diameter stenosis: Right: <50% by velocity and <70% by NASCET criteria. Left: <50% by velocity and <70% by NASCET criteria. IMPRESSION: 1. Mild bilateral carotid artery plaquing. 2. In the right carotid artery there are no elevated carotid artery velocities to suggest hemodynamically significant stenosis. 3. In the left carotid artery there are no elevated carotid artery velocities to suggest hemodynamically significant stenosis. 4. Normal antegrade flow is present in bilateral vertebral arteries. RADIA
[2019-07-20 05:04] LABS: BASOPHILS % (AUTO) 0.4 %; EOSINOPHILS # (AUTO) 0.3 10^3/uL (0.0-0.7); EOSINOPHILS % (AUTO) 2.7 %; HGB - HEMOGLOBIN 14.5 g/dL (14.0-18.0); LYMPHOCYTES # (AUTO) 1.8 10^3/uL (1.5-3.5); LYMPHOCYTES % (AUTO) 19.3 %; MEAN CORPUSCULAR HEMOGLOBIN 31.3 pg (27.0-31.0); MEAN CORPUSCULAR HGB CONC 32.6 g/dL (32.0-36.0); MEAN CORPUSCULAR VOLUME 95.9 fL (80.0-94.0); MEAN PLATELET VOLUME 9.8 fL (7.4-11.4); MONOCYTES % (AUTO) 10.5 %; NEUTROPHILS # (AUTO) 6.3 10^3/uL (1.5-6.6); NEUTROPHILS % (AUTO) 66.7 %; PLT - PLATELET COUNT 173 10^3/uL (130-450); RED BLOOD COUNT 4.64 10^6/uL (4.70-6.10); RED CELL DISTRIBUTION WIDTH 13.2 % (12.0-15.0); WHITE BLOOD COUNT 9.4 x10^3/uL (4.8-10.8)
[2019-07-20 05:13] LABS: CREATININE 1.1 mg/dL (0.6-1.2)
[2019-07-20 05:15] LABS: PT - PROTHROMBIN TIME 22.3 secs (9.9-12.6)
[2019-07-20 05:24] LABS: CHOL/HDL RATIO 4.8 (<5.0); CHOLESTEROL 163 mg/dL; HDL CHOLESTEROL 34 mg/dL; LDL CHOLESTEROL,CALCULATED 116 mg/dL; LDL/HDL RATIO 3.4 (<3.6); VLDL CHOLESTEROL 13 mg/dL
[2019-07-20 05:32] LABS: HB2 TOTAL 14.9 g/dL; HEMOGLOBIN A1C 0.55 g/dL; HEMOGLOBIN A1C % 5.5 % (4.6-6.2)
[2019-07-20] MEDS ORDERED: PANTOPRAZOLE 40 MG VIAL IVP SCH (07:00)
[2019-07-20] MEDS ORDERED: ONDANSETRON 4 MG/2 ML VIAL IVP PRN (08:48)
[2019-07-20] MEDS ORDERED: SODIUM CHLORIDE 0.9% 1,000 ML IV SCH (09:00)
[2019-07-20 09:11] LABS: CARBAMAZEPINE (TEGRETOL) 3.8 ug/mL
[2019-07-20] MEDS: ASPIRIN CHEW 81 MG TABLET PO SCH ×2 (09:16→09:33)
--- NOTE | 2019-07-20 10:16 | PHARMACY PROGRESS NOTE ---
- Best Possible Medication History Admit Date and Time: 07/19/191906 Processed by: Pharmacy Medication History completed: In progress Patient Interview: Pt unable to participate Secondary Source(s): Pharmacy records, Insurance records Awaiting call back from patient psychiatrist that manages bupropion, lamotrigine, and carbamazepine. As the person ultimately responsible for medication therapy, providers are able to order a medication from an existing home medication list in [facility] via the "Reconcile Routine" prior to Confirmation of that medication by endoscopy support specialist. Such practice is discouraged except when the physician, in their clinical judgment, deems that a medical need exists for a medication without regard to previous use.
[2019-07-20 10:28] LABS: LITHIUM 1.17 mmol/L
--- NOTE | 2019-07-20 13:57 | PHARMACY PROGRESS NOTE ---
- Best Possible Medication History Admit Date and Time: 07/19/191906 Processed by: Pharmacy Medication History completed: Yes Patient Interview: Pt unable to participate Secondary Source(s): Physician records, Pharmacy records, Insurance records As the person ultimately responsible for medication therapy, providers are able to order a medication from an existing home medication list in [facility] via the "Reconcile Routine" prior to Confirmation of that medication by computer technical support specialist. Such practice is discouraged except when the physician, in their clinical judgment, deems that a medical need exists for a medication without regard to previous use.
--- NOTE | 2019-07-20 15:41 | XRAY Report ---
Reason: SOB Procedure Date: 07/20/2019 Accession Number: [id number] / [id number] Procedure: XR - Chest 1 View X-Ray CPT Code: 29162 Final Report FULL RESULT: EXAM: CHEST RADIOGRAPHY EXAM DATE: 07/20/2019 03:29 PM. CLINICAL HISTORY: Dyspnea. COMPARISON: CHEST 1 VIEW 04/23/2018 11:41 AM. TECHNIQUE: 1 view. FINDINGS: Lungs/Pleura: No focal opacities evident. No pleural effusion. No pneumothorax. Mediastinum: Within exam limitations, the cardiomediastinal contour is normal. Other: None. IMPRESSION: No acute intrathoracic plain film abnormality. RADIA
--- NOTE | 2019-07-20 15:54 | Discharge Plan ---
Discharge Plan Problem Reviewed?: Yes Disposition: Home, Self Care Condition: Stable Diet: Regular Activity Restrictions: Activity as Tolerated Shower Restrictions: No (fall precaution) Instruction Topics: [place] [facility] Concerns: TIA, and lithium over-dosage Plan of Treatment: your aphasia is resolved. PT/OT evaluated and treated you. you has no other focal neurological deficits. your CT of head, US of Carotid, and ECHO of heart are unremarkable. Unfortunately you declined to have MRI of brain. you may followup your PCP to have MRI as out-pt if clinically indicated. Your lithium concentration is normal now. Advise you take this medication safely. you may followup your psychiatrist in one week to continue management. Care Goals: stabilization and improvement Assessment: discussed with you, and your by the phone for the care plan, you understood. Additional Instructions or Follow Up instructions: you may followup your PCP in one to two weeks, may followup your psychiatrist in one week to check lithium concentration again. Should your symptoms return or worsen, you may present ER or call 911 for help. No Smoking: If you smoke, Please STOP! Call for help. Follow-up with: César Braga MD [Primary Care Provider] -
[2019-07-20] MEDS ORDERED: WARFARIN 5 MG TABLET PO SCH (16:00)
--- NOTE | 2019-07-20 16:12 | DISCHARGE SUMMARY ---
Discharge Summary Admit Date: 07/19/19 Discharge Date: 07/20/19 Discharging Provider: Ronald Cabral Primary Care Provider: Dr. Braga Condition at Discharge: Stable Discharge Disposition: 01 Home, Self Care Discharge Facility Name: home - DIAGNOSES Admission Diagnoses: (1) Expressive aphasia (2) Bipolar disorder (3) Anxiety (4) History of pulmonary embolism (5) BPH (benign prostatic hyperplasia) Discharge Diagnoses with Status of Each Condition: (1) Expressive aphasia pt's expressive aphasia is resolved. pt has no another focal neurological deficits. pt had PT/OT evaluation and treatment. pt's CT of head, US of Carotid, ECHO and CXR are unremarkable. pt refused to hav e MRI of brain in the hospital. advise pt followup his PCP to have MRI of brain as out-pt if clinically indicated. (2) lithium toxicity pt was found to have lithium at 1.5. pt's by phone report she unintentionally give pt over dosage of lithium. she gave 400mg bid but pt should be given 300mb bid. after pt's lithium was hold in hospital, recheck pt's lithium, it is in the therapeutic arrange now. advise pt and by phone to his to followup his psychiatrist and check his lithium serum concentration again in one week. pt's TSH is normal. (3) Bipolar disorder stable, advise pt and his followup his psychiatrist in one week to manage his psychological issue. (4) Anxiety stable (5) History of pulmonary embolism stable (6) BPH (benign prostatic hyperplasia) stable - HPI History of Present Illness: refer from Dr. Anne's HPI on 07/19/2019 Patient is 74-year-old male with history of PE/DVT on Coumadin, bipolar disorder on lithium, anxiety who presented to the ED with concern of expressive aphasia. A significant portion of this history was provided by the patient's because of limitations due to the aphasia. She explains that the patient having difficulty finding words. He is aware of this difficulty. He understands her when she speaks and the few words he tries to speak as sensible. This has been g oing on for a few days but got significantly worse 2 days ago. She called the on-call line for the patient's primary care physician and was advised to come to the emergency room. His also adds that he has been having shuffling gait and his hands have been trembling.This has been going on for the past 1 month but has gotten progressively worse this past week. He denies dysphagia, or vision changes. However he has been experiencing headaches. On a separate note his reports that he has been dyspneic lately. He has also been sleeping more. He has a diagnosis of obstructive sleep apnea and is supposed to use a CPAP however he mostly sleeps in his recliner and does not use the CPAP. CT scan of the brain without contrast done in the ED was unremarkable. Patient also had a lithium level done which was 1.5. As a result of his symptoms he was presented for admission for further work-up. - HOSPITAL COURSE Hospital Course: pt was admitted for aphasia. after treated in hospital, pt's aphasia was resolved. pt had PT/OT evaluation and treatment. pt has no another neurological deficits. pt's CT of head, US of Carotid, ECHO are unremarkable. pt refused to have MRI of brain in the hospital. advise pt followup his PCP to have MRI of brain if clinically indicated. pt was found to have lithium at 1.5. pt's by phone report she unintentionally give pt over dosage of lithium. she gave 400mg bid but pt should be given 300mb bid. after pt's lithium was hold in hospital, recheck pt's lithium, it is in the therapeutic arrange now. advise pt and by phon to his , pt followup his psychiatrist and check his lithium serum concentration again in one week. pt's TSH is normal. I called pt's Latisha Mejia at phone [phone], update pt's medical conditions and discussed the care plan, and answered her concerns and questions. The detail hospital course is as the below. (1) Expressive aphasia pt's expressive aphasia is resolved. pt has no another focal neurological deficits. pt had PT/OT evaluation and treatment. pt's CT of head, US of Carotid, ECHO and CXR are unremarkable. pt refused to have MRI of brain in the hospital. advise pt followup his PCP to have MRI of brain as out-pt if clinically indicated. (2) lithium toxicity pt was found to have lithium at 1.5. pt's by phone report she unintentionally give pt over dosage of lithium. she gave 400mg bid but pt should be given 300mb bid. after pt's lithium was hold in hospital, recheck pt's lithium, it is in the therapeutic arrange now. advise pt, and by phone to his , to followup his psychiatrist, and check his lithium serum concentration again in one week. pt's TSH is normal. (3) Bipolar disorder stable, advise pt and his followup his psychiatrist in one week to manage his psychological issue. (4) Anxiety stable (5) History of pulmonary embolism stable (6) BPH (benign prostatic hyperplasia) stable - ALLERGIES Allergies/Adverse Reactions: Allergies Allergy/AdvReac Type Severity Reaction Status Date / Time iodine Allergy Unknown Verified 04/24/18 10:21 latex Allergy Rash Verified 04/23/18 11:27 sildenafil [From Viagra] Allergy Unknown Verified 04/24/18 10:21 - MEDICATIONS Home Medications: Ambulatory Orders Medication Instructions Recorded Confirmed lamoTRIgine [LaMICtal] 150 mg PO DAILY 01/13/13 07/20/19 Carbamazepine 200 mg PO BID 08/14/17 07/20/19 Buspirone HCl 30 mg PO BID 07/20/19 07/20/19 [place] Carbonate 300 mg PO BID 07/20/19 07/20/19 Methylcellulose (with Sugar) 2 tsp PO DAILY 07/20/19 07/20/19 [Citrucel Powder] Warfarin [Coumadin] 7.5 mg PO SUTUTHSA 07/20/19 07/20/19 Warfarin [Coumadin] 10 mg PO MOWEFR 07/20/19 07/20/19 buPROPion HCl [Bupropion HCl Sr] 200 mg PO DAILY 07/20/19 07/20/19 - PHYSICAL EXAM AT DISCHARGE General Appearance: positive: No acute distress, Alert. negative: Lethargic Eyes Bilateral: positive: Normal inspection, PERRL, EOMI, No lid inflammation ENT: positive: ENT inspection nml, Pharynx nml, No signs of dehydration. neg ative: Purulent nasal drainage Neck: positive: Nml inspection, Thyroid nml, No JVD, Trachea midline. negative: Thyromegaly, Stiff neck, Tracheal deviation Respiratory: positive: Chest non-tender, No respiratory distress, Breath sounds nml. negative: Wheezes Cardiovascular: positive: No murmur, No gallop, Irregularly irregular. negative: Regular rate & rhythm, Extrasystoles, Tachycardia, Bradycardia, Systolic murmur, Diastolic murmur Peripheral Pulses: positive: 2+ Abdomen: positive: Non-tender, No organomegaly, Nml bowel sounds, No distention. negative: Tenderness, Guarding, Rebound Back: positive: Nml inspection. negative: CVA tenderness (R), CVA tenderness (L) Skin: positive: Color nml, No rash, Warm, Dry. negative: Cyanosis, Diaphoresis, Pallor Extremities: positive: Non-tender, Full ROM, Nml appearance. negative: Calf tenderness, Soal's sign/cords Neurologic/Psychiatric: positive: Oriented x3, Motor nml, Sensation nml. negative: Facial droop, Slurred/abnml speech - LABS Result Diagrams: 07/20/19 04:39 07/20/19 04:39 - FOLLOW UP Follow Up: your aphasia is resolved. PT/OT evaluated and treated you. you has no other focal neurological deficits. your CT of head, US of Carotid, and ECHO of heart are unremarkable. Unfortunately you declined to have MRI of brain. you may followup your PCP to have MRI as out-pt if clinically indicated. Your lithium concentration is normal now. Advise you take this medication safely. you may followup your psychiatrist in one week to continue management. you may followup your PCP in one to two weeks, may followup your psychiatrist in one week to check lithium concentration again. Should your symptoms return or worsen, you may present ER or call 911 for help. - TIME SPENT Time Spent in Discharge (Minutes): 30
[2019-07-20 16:32] VITALS: BP 123/72
[2019-07-20] MEDS ORDERED: carBAMazepine 200 MG TABLET PO SCH (17:00)
[2019-07-20] MEDS ORDERED: busPIRone 5 MG TABLET PO SCH ×2 (17:15→21:00)
[2019-07-20] MEDS ORDERED: ATORVASTATIN 40 MG TABLET PO SCH (21:00)
[2019-07-21] MEDS ORDERED: lamoTRIgine 100 MG TABLET PO SCH (09:00)
[2019-07-21] MEDS ORDERED: WARFARIN 5 MG TABLET PO SCH (09:00)
[2019-07-21] MEDS ORDERED: buPROPion SR 100 MG TABLET PO SCH (09:00)
== END 2019-07-20 17:30 | disposition home or self-care (01) ==
LOC: ED 18:20 → MS3 19:07
PROVIDERS: ADMIT Internal Medicine; ATTEND Nurse Practitioner Gerontology
DX: R47.01 Aphasia (principal); F31.9 Bipolar disorder, unspecified; F41.9 Anxiety disorder, unspecified; G47.33 Obstructive sleep apnea (adult) (pediatric); T56.891A Toxic effect of other metals, accidental (unintentional), initial encounter; Y92.009 Unspecified place in unspecified non-institutional (private) residence as the place of occurrence of the external cause; G89.29 Other chronic pain; M54.9 Dorsalgia, unspecified; N40.0 Benign prostatic hyperplasia without lower urinary tract symptoms; Z79.899 Other long term (current) drug therapy; Z79.01 Long term (current) use of anticoagulants; Z86.711 Personal history of pulmonary embolism; Z86.718 Personal history of other venous thrombosis and embolism
CPT/HCPCS: 36415; 70450; 71045; 80048; 80053; 80061; 80156; 80175; 80178; 81003; 83036; 83690; 84443; 85025; 85610; 85730; 93005; 93306; 93880; 96374; 96375; 97161; 97165; 99285; A9270; G0378; 81001; 83721; 87086

== ENCOUNTER 2019-07-20 09:35 | Outpatient (CLI) | payer OTHER | END 2019-07-20 09:36 | disposition home or self-care (01) | LOC: SC 09:35 | PROVIDERS: ATTEND Internal Medicine Pulmonary Disease | DX: Z53.9 Procedure and treatment not carried out, unspecified reason (principal) ==

== ENCOUNTER 2019-07-21 10:10 | Outpatient (CLI) | payer MEDICARE, OTHER ==
[2019-07-21 13:42] LABS: BASOPHILS # (AUTO) 0.1 10^3/uL (0.0-0.1); BASOPHILS % (AUTO) 0.5 %; EOSINOPHILS # (AUTO) 0.2 10^3/uL (0.0-0.7); EOSINOPHILS % (AUTO) 1.9 %; HGB - HEMOGLOBIN 15.2 g/dL (14.0-18.0); LYMPHOCYTES # (AUTO) 1.5 10^3/uL (1.5-3.5); LYMPHOCYTES % (AUTO) 15.7 %; MEAN CORPUSCULAR HEMOGLOBIN 31.6 pg (27.0-31.0); MEAN CORPUSCULAR HGB CONC 32.8 g/dL (32.0-36.0); MEAN CORPUSCULAR VOLUME 96.5 fL (80.0-94.0); MONOCYTES # (AUTO) 1.1 10^3/uL (0.0-1.0); MONOCYTES % (AUTO) 11.5 %; NEUTROPHILS # (AUTO) 6.6 10^3/uL (1.5-6.6); NEUTROPHILS % (AUTO) 70.1 %; PLT - PLATELET COUNT 208 10^3/uL (130-450); RED BLOOD COUNT 4.81 10^6/uL (4.70-6.10); RED CELL DISTRIBUTION WIDTH 13.1 % (12.0-15.0); WHITE BLOOD COUNT 9.5 x10^3/uL (4.8-10.8)
[2019-07-21 14:06] LABS: ALBUMIN 4.6 g/dL (3.2-5.5); ALBUMIN/GLOBULIN RATIO 1.5 (1.0-2.2); BILIRUBIN,TOTAL 1.2 mg/dL (0.2-1.0); CALCIUM 9.4 mg/dL (8.5-10.3); CREATININE 1.3 mg/dL (0.6-1.2); TOTAL PROTEIN 7.7 g/dL (6.7-8.2)
== END 2019-07-21 23:59 | disposition home or self-care (01) ==
LOC: LAB.WCP 10:10
PROVIDERS: ATTEND Psychiatry & Neurology Psychiatry
DX: Z79.899 Other long term (current) drug therapy (principal); R06.09 Other forms of dyspnea
CPT/HCPCS: 36415; 80053; 80178; 83880; 85025

== ENCOUNTER 2019-07-28 09:11 | Outpatient (CLI) | payer OTHER ==
[2019-07-28 14:07] LABS: LITHIUM 0.51 mmol/L
== END 2019-07-28 23:59 | disposition home or self-care (01) ==
LOC: LAB.WCP 09:11
PROVIDERS: ATTEND Family Medicine
DX: F31.9 Bipolar disorder, unspecified (principal); R41.82 Altered mental status, unspecified
CPT/HCPCS: 36415; 80178

== ENCOUNTER 2019-08-06 10:00 | Outpatient (CLI) | payer MEDICARE, OTHER ==
[2019-08-06 13:45] LABS: LITHIUM 0.22 mmol/L
== END 2019-08-06 23:59 | disposition home or self-care (01) ==
LOC: LAB.WCP 10:00
PROVIDERS: ATTEND Psychiatry & Neurology Psychiatry
DX: Z79.899 Other long term (current) drug therapy (principal)
CPT/HCPCS: 36415; 80048; 80178

== ENCOUNTER 2019-08-16 10:26 | Outpatient (CLI) | payer OTHER ==
[2019-08-16 11:26] LABS: LITHIUM 0.36 mmol/L
== END 2019-08-16 10:27 | disposition home or self-care (01) ==
LOC: LAB 10:26
PROVIDERS: ATTEND Psychiatry & Neurology Psychiatry
DX: Z79.899 Other long term (current) drug therapy (principal)
CPT/HCPCS: 36415; 80178

== ENCOUNTER 2019-09-14 12:24 | Outpatient (CLI) | payer OTHER ==
[2019-09-14 18:28] LABS: BASOPHILS # (AUTO) 0.1 10^3/uL (0.0-0.1); BASOPHILS % (AUTO) 0.6 %; EOSINOPHILS # (AUTO) 0.2 10^3/uL (0.0-0.7); EOSINOPHILS % (AUTO) 2.5 %; HGB - HEMOGLOBIN 14.6 g/dL (14.0-18.0); LYMPHOCYTES # (AUTO) 1.9 10^3/uL (1.5-3.5); LYMPHOCYTES % (AUTO) 21.5 %; MEAN CORPUSCULAR HEMOGLOBIN 32.1 pg (27.0-31.0); MEAN CORPUSCULAR HGB CONC 33.1 g/dL (32.0-36.0); MEAN CORPUSCULAR VOLUME 96.9 fL (80.0-94.0); MEAN PLATELET VOLUME 9.6 fL (7.4-11.4); MONOCYTES # (AUTO) 0.8 10^3/uL (0.0-1.0); MONOCYTES % (AUTO) 9.2 %; NEUTROPHILS # (AUTO) 5.7 10^3/uL (1.5-6.6); NEUTROPHILS % (AUTO) 65.9 %; PLT - PLATELET COUNT 206 10^3/uL (130-450); RED BLOOD COUNT 4.55 10^6/uL (4.70-6.10); RED CELL DISTRIBUTION WIDTH 13.1 % (12.0-15.0); WHITE BLOOD COUNT 8.7 x10^3/uL (4.8-10.8)
== END 2019-09-14 23:59 | disposition home or self-care (01) ==
LOC: LAB.WCP 12:24
PROVIDERS: ATTEND Nurse Practitioner Family
DX: K92.1 Melena (principal)
CPT/HCPCS: 36415; 85025

== ENCOUNTER 2019-12-22 13:30 | Outpatient (CLI) | payer OTHER ==
[2019-12-22 14:19] VITALS: BP 144/70
--- NOTE | 2019-12-22 14:19 | SLEEP CARE CONSULTATION ---
Information from patient questionnaire entered by Cielo Ackerman. I have reviewed and concur with the information entered by Cielo Ackerman. This document represents the service I personally performed and the decisions made by me, Keri Haines, RN, MSN, THREAD CUTTER TENDER. History of Present Illness Service Date and Time: 12/22/2019 1330 Previous diagnosis: Moderate, Obstructive Sleep Apnea-Hypopnea Syndrome, Central Sleep Apnea-Hypopnea Syndrome AHI: 20.3 (in 2010)(52.2 in 2004) Reason for follow up: six month (6 month ) Equipment type: BiPAP Equipment obtained from: [employer] Mask style: Full face (Air Touch) [facility]: Yes [facility] Type of [facility]: Polysomnography CPAP Compliance Data - Data Reviewed with Patient Average duration of nightly device use: 4.5 Compliance rate %: 53 (30 day)(37 for 90 days) Current pressure setting (cmH2O): 22/18 Humidity setting: ? Heated hose setting: ? Average residual AHI: 6.6 Central apnea: 0.6 Obstructive apnea: 1.6 Hypopnea: 4.1 unknown Subjective Patient concerns: reports: air blowing in eyes, mask leak noise (leaks on top after a couple of weeks.), nasal congestion (Chronic -he sleeps in recliner if too bad so can sleep better), dry mouth, nose, throat (day and night from meds - no worse at night - drinks water), other. denies: aerophagia, mask discomfort, condensation in mask/hose, epistaxis Observed to snore while using device: No Current pressure setting perceived as: comfortable On therapy, patient: reports: sleeping better (with new mask and changes in night lighting to reduce blue light), awakening more refreshed, being more awake and alert during the day, more rested overall. denies: drowsiness while driving Initial [place] Sleepiness Scale score: 8 (in 2004) Current [place] Sleepiness Scale score: 14 Allergies and Home Medications Known drug allergies: Yes Home medication list reviewed: Yes (Changed dose of Bupropion ot 150mg bid/ warafin reduced to 5mg) Allergy and home medication list: Added 1/2 of 5mg melatonin as needed. Review of Systems Review of systems same as previous: Yes (overdose of lithium - hospitalized and meds changed) Physical Exam Blood Pressure: 144/70 Cuff size: long Heart Rate: 58 O2 Saturation: 98 Height: 5 ft 9 in Weight: 242 lb Weight change since last visit: lost 3 pounds Body Mass Index: 35.7 BMI Classification: Obese Impression and Plan 1. Central and Obstructive Sleep Apnea-Hypopnea Syndrome, severe, with better treatment compliance and better apnea control. On BiPAP therapy, the patient has better sleep quality and is more rested overall. Patient is sleeping better with new Wisp nasal mask instead of Air Touch full face mask. To reduce mask leaks he can change this mask twice a month, more often then previous mask. His compliance has increased from 38% to 53%. In addition with new mask, and pressure reduction, his residual AHI has reduced from 19 .1 to 6.6. For elevation of residual AHI. Patient advised to contact me if pressure change is uncomfortable so that it can be adjusted. Goals for apnea control discussed. The patients pressure will be changed to BiPAP 21/17 cmH20. Oral dryness can be reduced by adjusting humidity setting higher or heated hose lower or by adjusting both settings. Verbal instructions given on how to change humidity and heated hose settings with rationale explaining why to change. Oral dryness can also be reduced by reducing mask leaks. Patient advised that chronic oral dryness can affect dental health and advised to follow up with dentist. In addition, there are oral dryness products that can be used to reduce dryness such as Biotene products, Dry mouth rinse and Xylomelts. Patient has lost weight and praised for effort. He reports it is a struggle with his medications but is trying. Benefits of weight loss discussed. Patient to discuss best option with dentist. Patient's apnea severity and rationale for treatment to reduce apnea, improve sleep quality and reduce cardiovascular and cerebrovascular events was reviewed. I also reviewed the benefit of consistent device use of CPAP for hypertension, depression/anxiety. * Change BiPAP pressure to 21/17 cmH2O * Change mask cushion more often * Implement methods to reduce oral dryness * Notify me if snoring with mask or feeling that the pressure is too much or too little * Continue to lose weight * Call this office if any problems using CPAP * Return for follow up in 1-2 months , or sooner if concerns arise Counseling Topics: Weight control Visit Type: In Office Time Spent with Patient (minutes): 34 Provider Statement: I spent 100% of the Face to Face Visit with the patient with greater than 50% spent counseling the patient and coordination of care.
== END 2019-12-22 13:31 | disposition home or self-care (01) ==
LOC: SC 13:30
PROVIDERS: ATTEND Nurse Practitioner Family
DX: G47.31 Primary central sleep apnea (principal); G47.33 Obstructive sleep apnea (adult) (pediatric); E66.9 Obesity, unspecified; Z68.35 Body mass index [BMI] 35.0-35.9, adult
CPT/HCPCS: 99212; 99214

== ENCOUNTER 2020-01-14 08:39 | Outpatient (CLI) | payer OTHER ==
[2020-01-14 09:53] LABS: LITHIUM 0.44 mmol/L
[2020-01-14 10:00] LABS: ALBUMIN 4.2 g/dL (3.2-5.5); ALBUMIN/GLOBULIN RATIO 1.4 (1.0-2.2); BILIRUBIN,TOTAL 0.7 mg/dL (0.2-1.0); CALCIUM 9.5 mg/dL (8.5-10.3); CREATININE 1.1 mg/dL (0.6-1.2); TOTAL PROTEIN 7.2 g/dL (6.7-8.2)
== END 2020-01-14 08:40 | disposition home or self-care (01) ==
LOC: LAB 08:39
PROVIDERS: ATTEND Psychiatry & Neurology Psychiatry
DX: Z79.899 Other long term (current) drug therapy (principal)
CPT/HCPCS: 36415; 80053; 80178; 84443

== ENCOUNTER 2020-01-21 06:29 | Day surgery (SDC) | payer OTHER ==
[2020-01-21] MEDS ORDERED: LACTATED RINGERS 1,000 ML IV ONE ×2 (06:36→08:13)
[2020-01-21] MEDS ORDERED: fentaNYL 250 MCG/5 ML VIAL IVP ONE (07:29)
[2020-01-21] MEDS ORDERED: MIDAZOLAM 2 MG/2 ML VIAL IVP ONE (07:29)
[2020-01-21 08:55] VITALS: BP 125/73
== END 2020-01-21 06:30 | disposition home or self-care (01) ==
LOC: SDS 06:29
PROVIDERS: ATTEND Surgery
PROC: 0DBH8ZX Excision of Cecum, Via Natural or Artificial Opening Endoscopic, Diagnostic (ICD-10-PCS; principal; 2020-01-21 07:30)
DX: Z12.11 Encounter for screening for malignant neoplasm of colon (principal); K57.30 Diverticulosis of large intestine without perforation or abscess without bleeding; D12.0 Benign neoplasm of cecum; Z98.0 Intestinal bypass and anastomosis status; G47.33 Obstructive sleep apnea (adult) (pediatric); N40.0 Benign prostatic hyperplasia without lower urinary tract symptoms; C61 Malignant neoplasm of prostate; F31.9 Bipolar disorder, unspecified; Z86.718 Personal history of other venous thrombosis and embolism
CPT/HCPCS: 45380; J3010; J7120

== ENCOUNTER 2020-03-10 15:02 | Outpatient (CLI) | payer OTHER ==
--- NOTE | 2020-03-10 17:13 | XRAY Report ---
PROCEDURE: Lumbar Spine w/Flex/Ext INDICATIONS: LOW BACK PAIN TECHNIQUE: 6 views of the lumbar spine acquired. COMPARISON: None. FINDINGS: Bones: 5 [id number] vertebrae are present. There is mild degenerative anterolisthesis of L4 on L5 measuring approximately 8 mm. No vertebral body compression fractures. No suspicious bony lesion s. No pars defects. Lower lumbar facet arthropathy. Soft tissues: Overlying bowel gas pattern is normal. No suspicious soft tissue calcifications. Pro state implant seeds. Flexion/extension: Grade 1 anterolisthesis of L4 on L5 measures 1.5 cm on flexion and 0.8 cm on exte nsion. This is consistent with ligamentous laxity. No other abnormal motion. IMPRESSION: 1. Grade 1 degenerative anterolisthesis of L4 on L5 with abnormal motion on flexion and extension. 2. Lower lumbar facet arthropathy. Reviewed by: Bacilio Stewart MD on 03/10/2020 5:12 PM PST Approved by: Bacilio Stewart MD on 03/10/2020 5:12 PM PST Station ID: [id number]
== END 2020-03-10 15:03 | disposition home or self-care (01) ==
LOC: DI 15:02
PROVIDERS: ATTEND Internal Medicine
DX: M47.816 Spondylosis without myelopathy or radiculopathy, lumbar region (principal)

== ENCOUNTER 2020-05-08 14:12 | Outpatient (CLI) | payer OTHER | END 2020-05-08 14:13 | disposition home or self-care (01) | LOC: LAB 14:12 | PROVIDERS: ATTEND Internal Medicine | DX: I26.99 Other pulmonary embolism without acute cor pulmonale (principal); Z79.01 Long term (current) use of anticoagulants | CPT/HCPCS: 85610 ==

== ENCOUNTER 2020-05-29 14:26 | Outpatient (CLI) | payer OTHER ==
[2020-05-29 15:03] LABS: BASOPHILS # (AUTO) 0.1 10^3/uL (0.0-0.1); BASOPHILS % (AUTO) 0.5 %; EOSINOPHILS # (AUTO) 0.3 10^3/uL (0.0-0.7); EOSINOPHILS % (AUTO) 3.3 %; HCT - HEMATOCRIT 43.1 % (42.0-52.0); HGB - HEMOGLOBIN 14.5 g/dL (14.0-18.0); LYMPHOCYTES # (AUTO) 2.1 10^3/uL (1.5-3.5); LYMPHOCYTES % (AUTO) 22.3 %; MEAN CORPUSCULAR HEMOGLOBIN 30.9 pg (27.0-31.0); MEAN CORPUSCULAR HGB CONC 33.6 g/dL (32.0-36.0); MEAN CORPUSCULAR VOLUME 91.9 fL (80.0-94.0); MEAN PLATELET VOLUME 8.9 fL (7.4-11.4); MONOCYTES # (AUTO) 0.9 10^3/uL (0.0-1.0); MONOCYTES % (AUTO) 9.7 %; NEUTROPHILS # (AUTO) 6.1 10^3/uL (1.5-6.6); NEUTROPHILS % (AUTO) 63.8 %; PLT - PLATELET COUNT 197 10^3/uL (130-450); RED BLOOD COUNT 4.69 10^6/uL (4.70-6.10); WHITE BLOOD COUNT 9.5 x10^3/uL (4.8-10.8)
[2020-05-29 15:16] LABS: ALBUMIN 3.9 g/dL (3.2-5.5); ALBUMIN/GLOBULIN RATIO 1.2 (1.0-2.2); BILIRUBIN,TOTAL 0.9 mg/dL (0.2-1.0); CALCIUM 9.2 mg/dL (8.5-10.3); CREATININE 1.3 mg/dL (0.6-1.2); POTASSIUM 4.1 mmol/L (3.5-5.0); TOTAL PROTEIN 7.1 g/dL (6.7-8.2)
== END 2020-05-29 14:27 | disposition home or self-care (01) ==
LOC: LAB 14:26
PROVIDERS: ATTEND Internal Medicine
DX: I10 Essential (primary) hypertension (principal); C61 Malignant neoplasm of prostate
CPT/HCPCS: 36415; 80053; 84153; 85025

== ENCOUNTER 2020-06-07 08:17 | Outpatient (CLI) | payer OTHER ==
--- NOTE | 2020-06-07 16:43 | DEXA Report ---
PROCEDURE: Dexa Spine and/or Hip INDICATIONS: HX OF OSTEOPENIA TECHNIQUE: Dual energy x-ray absorptiometry (DXA) was performed on a [employer] System. Regions measur ed are the AP Spine, femoral neck, and if needed forearm. COMPARISON: 07/12/2016 FINDINGS: Lumbar Spine: Bone Mineral Density 1.045 g/cm/cm,T score -1.5, osteopenia Left Hip: Bone Mineral Density 0.940 g/cm/cm,T score -1.1, osteopenia Left Femoral Neck: Bone Mineral Density 0.926 g/cm/cm, T score -1.1, osteopenia (T score greater or equal to -1.0: NORMAL) (T score from -1.1 to -2.4: OSTEOPENIA) (T score less than or equal to -2.5 to: OSTEOPOROSIS) Impression: Osteopenia. Bone mineral density has increased to 6.1% in the interval since prior exam o btained 07/12/2016. Patients with diagnosis of osteoporosis or osteopenia should have regular bone mineral density assess ment. For those eligible for Medicare, routine testing is allowed once every 2 years. Testing frequ ency can be increased for patients who have rapidly progressing disease or for those who are receivin g medical therapy to restore bone mass. Reviewed by: Helena Mckeon MD, PhD on 06/07/2020 4:42 PM PDT Approved by: Helena Mckeon MD, PhD on 06/07/2020 4:42 PM PDT Station ID: [id number]
== END 2020-06-07 08:18 | disposition home or self-care (01) ==
LOC: DI 08:17
PROVIDERS: ATTEND Internal Medicine
DX: M85.89 Other specified disorders of bone density and structure, multiple sites (principal)

== ENCOUNTER 2020-06-30 12:33 | Outpatient (CLI) | payer OTHER | END 2020-06-30 12:34 | disposition home or self-care (01) | LOC: LAB 12:33 | PROVIDERS: ATTEND Internal Medicine | DX: I26.99 Other pulmonary embolism without acute cor pulmonale (principal); Z79.01 Long term (current) use of anticoagulants | CPT/HCPCS: 85610 ==

== ENCOUNTER 2020-07-07 13:39 | Outpatient (CLI) | payer OTHER | END 2020-07-07 13:40 | disposition home or self-care (01) | LOC: LAB 13:39 | PROVIDERS: ATTEND Internal Medicine | DX: Z79.01 Long term (current) use of anticoagulants (principal); I26.99 Other pulmonary embolism without acute cor pulmonale | CPT/HCPCS: 85610 ==

== ENCOUNTER 2020-07-21 08:03 | Outpatient (CLI) | payer OTHER ==
[2020-07-21 08:30] LABS: BASOPHILS # (AUTO) 0.1 10^3/uL (0.0-0.1); BASOPHILS % (AUTO) 0.6 %; EOSINOPHILS # (AUTO) 0.2 10^3/uL (0.0-0.7); EOSINOPHILS % (AUTO) 2.7 %; HGB - HEMOGLOBIN 14.1 g/dL (14.0-18.0); LYMPHOCYTES # (AUTO) 1.9 10^3/uL (1.5-3.5); LYMPHOCYTES % (AUTO) 23.7 %; MEAN CORPUSCULAR HGB CONC 32.8 g/dL (32.0-36.0); MEAN CORPUSCULAR VOLUME 91.5 fL (80.0-94.0); MONOCYTES # (AUTO) 0.8 10^3/uL (0.0-1.0); MONOCYTES % (AUTO) 9.9 %; NEUTROPHILS # (AUTO) 4.9 10^3/uL (1.5-6.6); NEUTROPHILS % (AUTO) 62.7 %; PLT - PLATELET COUNT 230 10^3/uL (130-450); RED CELL DISTRIBUTION WIDTH 13.2 % (12.0-15.0); WHITE BLOOD COUNT 7.8 x10^3/uL (4.8-10.8)
[2020-07-21 08:41] LABS: ALBUMIN 4.1 g/dL (3.2-5.5); ALBUMIN/GLOBULIN RATIO 1.2 (1.0-2.2); BILIRUBIN,TOTAL 0.8 mg/dL (0.2-1.0); CALCIUM 9.1 mg/dL (8.5-10.3); POTASSIUM 4.1 mmol/L (3.5-5.0); TOTAL PROTEIN 7.4 g/dL (6.7-8.2)
[2020-07-21 09:11] LABS: LITHIUM 0.42 mmol/L
== END 2020-07-21 08:04 | disposition home or self-care (01) ==
LOC: LAB 08:03
PROVIDERS: ATTEND Internal Medicine
DX: I12.9 Hypertensive chronic kidney disease with stage 1 through stage 4 chronic kidney disease, or unspecified chronic kidney disease (principal); G44.89 Other headache syndrome; N18.9 Chronic kidney disease, unspecified; I26.99 Other pulmonary embolism without acute cor pulmonale; Z79.01 Long term (current) use of anticoagulants
CPT/HCPCS: 36415; 80053; 80175; 80178; 85025; 85610

== ENCOUNTER 2020-07-29 18:48 | Emergency (ER) | payer MEDICARE, OTHER ==
--- OUTSIDE RECORDS SUMMARY | 2020-07-29 18:51 | EXTERNAL MEDICAL SUMMARY RPT | Continuity of Care Document ---
: Demographics Phone Unavailable Preferred Language Dutch Marital Status Unknown Restorationism Affiliation Unknown Race Unknown Ethnic Group Unknown Author Organization [place] Address [address] [phone] Phone Care Team Providers Name Role Phone César Kingston Unavailable Unavailable Problems date description facility [id number] Spinal stenosis, cervical region [facility]
--- OUTSIDE RECORDS SUMMARY | 2020-07-29 19:24 | EXTERNAL MEDICAL SUMMARY RPT | Continuity of Care Document ---
: Demographics Phone Unavailable Preferred Language Northern Irish Marital Status Unknown Lutheran Affiliation Unknown Race Unknown Ethnic Group Unknown Author Organization [place] Address [address] [phone] Phone Care Team Providers Name Role Phone César Kingston Unavailable Unavailable Problems date description facility [id number] Spinal stenosis, cervical region [facility]
[2020-07-29] MEDS ORDERED: CHERRY SYRUP 10 ML UDC PO ONE (20:13)
[2020-07-29] MEDS ORDERED: DEXAMETHASONE 10 MG/ML VIAL PO STA (20:13)
--- NOTE | 2020-07-29 20:17 | ED Physician Documentation ---
History of Present Illness - Stated complaint Stated Complaint: UNABLE TO WALK - Chief complaint Chief Complaint: Ext Problem - History obtained from History obtained from: Patient - History of Present Illness Timing: How many days ago (2) - Additonal information Additional information: 75-year-old male with a history of cervical and lumbar radiculopathy has de veloped some difficulty walking that began last fall. He indicates that he periodically will have some difficulty getting up and he is walking with his knees bent slightly. He has good days and bad days today when he was on the floor he could not get up. His grandchild asked if he was going to and the patient thought maybe he should be checked out. He states that he has had some difficulty with walking for months and attributes it to some pain behind his knees and he has an appointment to see an orthopod regarding his knees later this week. He also has an appointment to see Dr. King in [place] regarding his chronic neck pain. He is scheduled for some injection tomorrow. The patient does have a history of COPD and pulmonary embolism he is on Coumadin had his last INR checked at 3.1 last week. Review of Systems Constitutional: denies: Fever Eyes: denies: Decreased vision Ears: denies: Ear pain Nose: denies: Congestion Throat: denies: Sore throat Cardiac: denies: Chest pain / pressure, Palpitations Respiratory: reports: Dyspnea. denies: Cough GI: denies: Vomiting : denies: Dysuria, Frequency Skin: denies: Rash Musculoskeletal: reports: Neck pain, Back pain, Extremity pain, Joint pain Neurologic: denies: Generalized weakness, Focal weakness, Numbness, Difficulty speaking PD PAST MEDICAL HISTORY - Past Medical History Past Medical History: Yes Cardiovascular: None, Pulmonary embolism Respiratory: Sleep apnea, CPAP use GI: None : None, Other HEENT: None Psych: Bipolar disorder Musculoskeletal: Osteoarthritis, Chronic back pain Derm: None - Past Surgical History Past Surgical History: Yes General: Colonoscopy, EGD, Other Ortho: Rotator cuff repair, Other HEENT: Tonsil/Adenoidectomy - Present Medications Home Medications: Ambulatory Orders Medication Instructions Recorded Confirmed lamoTRIgine [LaMICtal] 150 mg PO DAILY 01/13/13 07/20/19 Buspirone HCl 30 mg PO BID 07/20/19 07/29/20 [place] Carbonate 450 mg PO BID 07/20/19 07/29/20 Warfarin [Coumadin] 7.5 mg PO SUTUTHSA 07/20/19 07/29/20 Warfarin [Coumadin] 10 mg PO MOWEFR 07/20/19 07/29/20 buPROPion HCl [Bupropion HCl Sr] 150 mg PO DAILY 07/20/19 07/29/20 - Allergies Allergies/Adverse Reactions: Allergies Allergy/AdvReac Type Severity Reaction Status Date / Time iodine Allergy Unknown Verified 07/29/20 18:51 latex Allergy Rash Verified 07/29/20 18:51 sildenafil [From Viagra] Allergy Unknown Verified 07/29/20 18:51 - Social History Does the pt smoke?: No Smoking Status: Never smoker Does the pt drink ETOH?: No Does the pt have substance abuse?: No - Immunizations Immunizations are current?: Yes - POLST Patient has POLST: No POLST Status: Full Code PD ED PE NORMAL - Vitals Vital signs reviewed: Yes (Normal) - General General: Alert and oriented X 3, No acute distress, Well developed/nourished - HEENT HEENT: Atraumatic, PERRL, EOMI - Respiratory Respiratory: No respiratory distress - Back Back: No CVA TTP, No spinal TTP - Derm Derm: Normal color, Warm and dry, No rash - Extremities Extremities: No deformity, No edema, Other (The knees are stable to testing with the ligaments bilaterally and there is a small joint effusion on the right. The patella is not ballotable and the effusion is not large. He has full range of motion without pain or crepitance. Distal neurovascular components intact.) - Neuro Neuro: Alert and oriented X 3, software development intern 2-12 intact, No motor deficit, No sensory deficit, Normal speech, Other (Observation of the patient walking shows that he has a wide-based gait with his feet pointed outward his knees bent and he is able to ambulate in this fashion without much difficulty.) Eye Opening: Spontaneous Motor: Obeys Commands Verbal: Oriented GCS Score: 15 - Psych Psych: Normal mood, Normal affect Results - Vitals Vitals: Vital Signs - 24 hr 07/29/20 07/29/20 07/29/20 18:51 19:46 21:18 Temperature 36.7 C 36.8 C Heart Rate 90 89 70 Respiratory 16 16 16 Rate Blood Pressure 110/80 156/86 H 118/90 H O2 Saturation 97 97 98 Oxygen O2 Source Room air - Labs Labs: Laboratory Tests 07/29/20 20:23 INR (Fingerstick) 3.2 H - Rads (name of study) knees B Radiology: Prelim report reviewed (Impression: 1. Mild osteoarthritic changes with mild joint space narrowing in the medial compartments), EMP read indepedently, See rad report PD MEDICAL DECISION MAKING - ED course Complexity details: reviewed old records, reviewed results, re-evaluated patient, considered differential, d/w patient, d/w family ED course: 75-year-old male with a history of cervical radiculopathy and lumbar disc disease has had some difficulty getting up off of a chair and he has good days and bad days and today we were able to examine the patient and found he had some mild arthritis in his knees and I do not do not believe that this is the patient's issue I believe this issue is likely in his back. He does not have MR of the lumbar spine here he does have an MR of the cervical spine from [facility] which she brings a copy of. He has an appointment to see Dr. King tomorrow in [place] for further work on his neck and later in the week for work on his back. Here in the emerge department today the patient is administered dexamethasone 10 mg orally he is able to get up off of the bed which is up a bit higher than a chair and I have recommended that he get a riser for his commode at home. He is in physical therapy as well. I discussed with the patient I have little else to offer tonight. Departure - Departure Disposition: 01 Home, Self Care Clinical Impression: Lumbar radiculopathy, chronic Condition: Stable Instructions: ED Sciatica Follow-Up: César Kingston MD [Primary Care Provider] - Comments: Today we found minimal arthritis in your knees and I do not believe you have difficulty with getting up out of a chair is related to your knees I suspect it is related to your back and possibly to spinal stenosis or lumbar radiculopathy. Today we have given you a dose of dexamethasone and my recommendation is to follow-up with Dr. King as previously planned tomorrow and later in the week.
--- NOTE | 2020-07-29 20:53 | XRAY Report ---
PROCEDURE: Knee 4 View BILAT INDICATIONS: posterior pain reduce ROM TECHNIQUE: 4 views of each knee were acquired. COMPARISON: None. FINDINGS: Bones: No fractures or dislocations. There is mild joint space narrowing in the medial compartments bilaterally, right greater than left. There is minimal osteophytosis bilaterally. No suspicious bony lesions. Soft tissues: No joint effusions. No suspicious soft tissue calcifications. IMPRESSION: 1. Mild osteoarthritic changes with mild joint space narrowing in the medial compartments. Reviewed by: Abraham Mcfadden MD on 07/29/2020 8:51 PM PDT Approved by: Abraham Mcfadden MD on 07/29/2020 8:51 PM PDT Station ID: [id number]
[2020-07-29 21:20] VITALS: BP 118/90
== END 2020-07-29 22:07 | disposition home or self-care (01) ==
LOC: ED 18:48
DX: M54.16 Radiculopathy, lumbar region (principal); Z86.711 Personal history of pulmonary embolism; Z79.01 Long term (current) use of anticoagulants
CPT/HCPCS: 36416; 73564; 85610; 99282; 99284; A9270

== ENCOUNTER 2020-08-14 14:39 | Outpatient (CLI) | payer MEDICARE ==
[2020-08-14 15:21] LABS: HGB - HEMOGLOBIN 14.3 g/dL (14.0-18.0); MEAN CORPUSCULAR HEMOGLOBIN 29.7 pg (27.0-31.0); MEAN CORPUSCULAR HGB CONC 32.5 g/dL (32.0-36.0); MEAN CORPUSCULAR VOLUME 91.5 fL (80.0-94.0); MEAN PLATELET VOLUME 9.1 fL (7.4-11.4); RED BLOOD COUNT 4.81 10^6/uL (4.70-6.10); RED CELL DISTRIBUTION WIDTH 13.4 % (12.0-15.0); WHITE BLOOD COUNT 11.9 x10^3/uL (4.8-10.8)
[2020-08-14 15:28] LABS: PT - PROTHROMBIN TIME 21.4 secs (9.9-12.6)
[2020-08-14 15:39] LABS: CRP - C-REACTIVE PROTEIN < 1.0 mg/dL (0-1.0); URIC ACID 5.9 mg/dL (2.6-7.2)
[2020-08-14 16:28] LABS: RHEUMATOID FACTOR NEGATIVE (Negative)
[2020-08-16 14:31] LABS: DNA (DS) ANTIBODY <1 IU/mL
[2020-08-17 10:46] LABS: ANA SCREEN NEGATIVE (NEGATIVE)
[2020-08-17 20:56] LABS: CYCLIC CITRULL PEPTIDE CCP IGG <16 UNITS
== END 2020-08-14 14:40 | disposition home or self-care (01) ==
LOC: LAB 14:39
PROVIDERS: ATTEND Internal Medicine
DX: M25.50 Pain in unspecified joint (principal); Z79.01 Long term (current) use of anticoagulants; I26.99 Other pulmonary embolism without acute cor pulmonale
CPT/HCPCS: 36415; 84550; 85027; 85610; 85651; 86038; 86140; 86200; 86225; 86430

== ENCOUNTER 2020-09-08 15:26 | Emergency (ER) | payer MEDICARE ==
--- NOTE | 2020-09-08 16:24 | ED Physician Documentation ---
History of Present Illness - Stated complaint Stated Complaint: RIGHT KNEE INJURY - Chief complaint Chief Complaint: Trauma Ext - History obtained from History obtained from: Patient - History of Present Illness Timing: How many days ago (2) Pain level max: 7 Pain level now: 5 - Additonal information Additional information: Patient is a 75-year-old male who presents to the emergency department after getting up out of a hot tub 2 days ago, his right knee bent behind him and twisted. He states it took him a few minutes to get out of the hot tub. Has had increasing pain since that time. Is using a neoprene brace without relief. Took Tylenol for pain without relief. No swelling. No head, neck, back pain. No numbness or tingling. No loss of consciousness. No redness. Review of Systems Constitutional: denies: Fever, Chills Nose: denies: Rhinorrhea / runny nose, Congestion Cardiac: denies: Chest pain / pressure Respiratory: denies: Dyspnea GI: denies: Nausea, Vomiting Musculoskeletal: denies: Neck pain, Back pain Neurologic: denies: Head injury, LOC PD PAST MEDICAL HISTORY - Past Medical History Cardiovascular: None, Pulmonary embolism Respiratory: Sleep apnea, CPAP use GI: None : None, Other HEENT: None Psych: Bipolar disorder Musculoskeletal: Osteoarthritis, Chronic back pain Derm: None - Past Surgical History Past Surgical History: Yes General: Colonoscopy, EGD, Other Ortho: Rotator cuff repair, Other HEENT: Tonsil/Adenoidectomy - Present Medications Home Medications: Ambulatory Orders Medication Instructions Recorded Confirmed lamoTRIgine [LaMICtal] 150 mg PO DAILY 01/13/13 07/20/19 Buspirone HCl 30 mg PO BID 07/20/19 07/29/20 [place] Carbonate 450 mg PO BID 07/20/19 07/29/20 Warfarin [Coumadin] 7.5 mg PO SUTUTHSA 07/20/19 07/29/20 Warfarin [Coumadin] 10 mg PO MOWEFR 07/20/19 07/29/20 buPROPion HCl [Bupropion HCl Sr] 150 mg PO DAILY 07/20/19 07/29/20 HYDROcod/ACETAM 5/325 [[place] 5/325] 1 - 2 ea PO Q6H PRN #14 tablet 09/08/20 - Allergies Allergies/Adverse Reactions: Allergies Allergy/AdvReac Type Severity Reaction Status Date / Time iodine Allergy Unknown Verified 09/08/20 15:48 latex Allergy Rash Verified 09/08/20 15:48 - Social History Does the pt smoke?: No Smoking Status: Never smoker Does the pt drink ETOH?: No Does the pt have substance abuse?: No - Immunizations Immunizations are current?: Yes - POLST Patient has POLST: No POLST Status: Full Code PD ED PE NORMAL - Vitals Vital signs reviewed: Yes - General General: Alert and oriented X 3, No acute distress, Well developed/nourished - HEENT HEENT: Atraumatic, PERRL, Moist mucous membranes - Neck Neck: Supple, no meningeal sign - Derm Derm: Warm and dry - Extremities Extremities: Other (No tenderness about the right knee. No swelling. No joint effusion. Limited range of motion secondary to pain. ACL, MCL, PCL, LCL appear intact, though are somewhat limited of evaluation secondary to pain. No bruising. No redness.) - Neuro Neuro: Alert and oriented X 3 - Psych Psych: Normal mood, Normal affect Results - Vitals Vitals: Vital Signs - 24 hr 09/08/20 15:46 Temperature 36.2 C L Heart Rate 75 Respiratory 16 Rate Blood Pressure 155/76 H O2 Saturation 96 Oxygen O2 Source Room air - Rads (name of study) X-ray Right knee Radiology: Prelim report reviewed, EMP read contemporaneously, See rad report (no acute findings) PD MEDICAL DECISION MAKING - ED course Complexity details: reviewed results, re-evaluated patient, considered differential, d/w patient ED course: Patient with what appears to be a right knee sprain. Placed in a articulating knee brace. Will prescribe pain medication for home. I am prescribing a short course of short-acting opioid pain medication for this patient. I have reviewed the patients VIDEO CLERK and no concerning findings were noted. I have discussed that the opioids are for short term therapy only, and will not be refilled from the ED. Ambulating well. No evidence of joint effusion. No evidence of hematoma. No evidence of infection. Patient counseled regarding signs and symptoms for which I believe and urgent re-evaluation would be necessary. Patient with good understanding of and agreement to plan and is comfortable going home at this time This document was made in part using voice recognition software. While efforts are made to proofread this document, sound alike and grammatical errors may o ccur. Departure - Departure Disposition: 01 Home, Self Care Clinical Impression: Right knee sprain Qualifiers: Encounter type: initial encounter Involved ligament of knee: unspecified ligament Qualified Code(s): S83.91XA - Sprain of unspecified site of right knee, initial encounter Condition: Good Instructions: ED Sprain Knee Follow-Up: César Kingston MD [Primary Care Provider] - Within 1 week Prescriptions: HYDROcod/ACETAM 5/325 [[place] 5/325] 1 - 2 ea PO Q6H PRN #14 tablet PRN Reason: Pain Comments: Wear the articulating brace until released by your doctor. This will help to support the ligaments while your knee heals. You may bear weight as tolerated. Your x-ray does not show any acute abnormalities today. If you are still having pain in 1 week, follow-up with your doctor for consideration of physical therapy and/or MRI. I am prescribing a short course of narcotic pain medication for you. These are potentially dangerous and addictive medications that should be used carefully. These medications may constipate you. Take an eiyz-cwn-imfzhfd stool softener (docusate) twice daily with plenty of water while taking these medications. If you go 24 hours without a bowel movement, take rtop-agn-jfshipe miralax, per package instructions. Do not drink or drive while taking these medications. If you received narcotic or sedating medications while in the emergency department, do not drive for 24 hours. Store this medication in a safe, secure place and out of reach of children. It is a violation of federal law to give or sell this medication to another person or to use in a manner other than prescribed. The ED will not refill narcotic prescriptions, including prescriptions lost or stolen. To dispose of unwanted medications: 1. [facility] at [address] in [place] has a medication drop box. They accept prescription medications (in pill form) Friday through Friday 9:00 a.m. to 5:00 p.m. 2. The [facility] [place] [employer] accepts prescription medications (in pill form only) for disposal year round. Call for more information. 3. Contact the [facility] for the next [employer] sponsored prescription drug collection event. , [phone], or [phone];
--- NOTE | 2020-09-08 16:44 | XRAY Report ---
PROCEDURE: Knee 4 View RT INDICATIONS: fall, knee pain TECHNIQUE: 4 views of the right knee(s) were acquired. COMPARISON: None. FINDINGS: Bones: No fractures or dislocations. Mild to moderate tricompartmental osteoarthritis is seen. No godyo spicious bony lesions. Soft tissues: Small suprapatellar joint effusion is noted. No suspicious soft tissue calcifications. IMPRESSION: Mild to moderate tricompartment osteoarthritis and small suprapatellar joint effusion. N o acute fracture or dislocation. Reviewed by: Suresh Oconnell MD on 09/08/2020 4:42 PM PDT Approved by: Suresh Oconnell MD on 09/08/2020 4:42 PM PDT Station ID: [id number]
[2020-09-08 16:50] VITALS: BP 148/72
== END 2020-09-08 17:00 | disposition home or self-care (01) ==
LOC: ED 15:26
DX: S83.91XA Sprain of unspecified site of right knee, initial encounter (principal); X50.1XXA Overexertion from prolonged static or awkward postures, initial encounter; Y93.89 Activity, other specified; I26.99 Other pulmonary embolism without acute cor pulmonale; Z79.01 Long term (current) use of anticoagulants
CPT/HCPCS: 36415; 85610; 99283; 99284

== ENCOUNTER 2020-09-08 17:01 | Outpatient (CLI) | payer MEDICARE ==
[2020-09-08 17:33] LABS: PT - PROTHROMBIN TIME 31.1 secs (9.9-12.6)
== END 2020-09-08 17:02 | disposition home or self-care (01) ==
LOC: LAB 17:01
PROVIDERS: ATTEND Internal Medicine
DX: Z79.01 Long term (current) use of anticoagulants (principal); I26.99 Other pulmonary embolism without acute cor pulmonale
CPT/HCPCS: 36415; 85610

== ENCOUNTER 2020-09-29 11:18 | Outpatient (CLI) | payer MEDICARE | END 2020-09-29 11:19 | disposition home or self-care (01) | LOC: LAB 11:18 | PROVIDERS: ATTEND Internal Medicine | DX: Z79.01 Long term (current) use of anticoagulants (principal); I26.99 Other pulmonary embolism without acute cor pulmonale | CPT/HCPCS: 36416; 85610 ==

== ENCOUNTER 2020-10-11 08:00 | Outpatient (CLI) | payer MEDICARE ==
[2020-10-11 18:03] LABS: BASOPHILS # (AUTO) 0.1 10^3/uL (0.0-0.1); BASOPHILS % (AUTO) 0.6 %; EOSINOPHILS # (AUTO) 0.3 10^3/uL (0.0-0.7); EOSINOPHILS % (AUTO) 3.1 %; HCT - HEMATOCRIT 44.5 % (42.0-52.0); HGB - HEMOGLOBIN 14.3 g/dL (14.0-18.0); LYMPHOCYTES # (AUTO) 1.9 10^3/uL (1.5-3.5); LYMPHOCYTES % (AUTO) 19.5 %; MEAN CORPUSCULAR HEMOGLOBIN 29.4 pg (27.0-31.0); MEAN CORPUSCULAR HGB CONC 32.1 g/dL (32.0-36.0); MEAN CORPUSCULAR VOLUME 91.6 fL (80.0-94.0); MEAN PLATELET VOLUME 9.6 fL (7.4-11.4); MONOCYTES # (AUTO) 0.9 10^3/uL (0.0-1.0); MONOCYTES % (AUTO) 9.2 %; NEUTROPHILS # (AUTO) 6.4 10^3/uL (1.5-6.6); NEUTROPHILS % (AUTO) 67.2 %; PLT - PLATELET COUNT 218 10^3/uL (130-450); RED BLOOD COUNT 4.86 10^6/uL (4.70-6.10); RED CELL DISTRIBUTION WIDTH 14.3 % (12.0-15.0); WHITE BLOOD COUNT 9.5 x10^3/uL (4.8-10.8)
[2020-10-11 18:47] LABS: ALBUMIN 4.2 g/dL (3.2-5.5); ALBUMIN/GLOBULIN RATIO 1.4 (1.0-2.2); BILIRUBIN,TOTAL 0.7 mg/dL (0.2-1.0); CALCIUM 9.4 mg/dL (8.5-10.3); TOTAL PROTEIN 7.2 g/dL (6.7-8.2)
== END 2020-10-11 23:59 | disposition home or self-care (01) ==
LOC: LAB.WCP 08:00
PROVIDERS: ATTEND Internal Medicine
DX: M25.50 Pain in unspecified joint (principal); N18.9 Chronic kidney disease, unspecified
CPT/HCPCS: 36415; 80053; 85025; 85651; 86140

== ENCOUNTER 2020-10-16 11:45 | Outpatient (CLI) | payer MEDICARE ==
--- NOTE | 2020-10-16 15:17 | XRAY Report ---
PROCEDURE: Hand 2 View BILAT INDICATIONS: PAIN IN UNSPECIFIED JOINT TECHNIQUE: 2 views of the hand(s) acquired. COMPARISON: None FINDINGS: Bones: Right hand: There is asymmetric, prominent joint space loss at the second and third metacarpa l phalangeal joints with subcortical cystic changes, sclerosis, and slight subluxation. Subcortical c ystic changes are seen throughout the carpal bones. There is mild sclerosis of the triscaphe articula tion. Left hand: There is bone on bone, dystrophic spurring, remodeling, subcortical cystic change and scle rosis at the first carpometacarpal joint. There is joint space loss, subluxation, and subcortical cys tic changes with prominent spurs at the third metacarpal phalangeal joint. No fractures or dislocatio ns. No suspicious bony lesions. Soft tissues: No suspicious soft tissue calcifications. Mild bilateral atherosclerotic calcificatio n. IMPRESSION: 1. Arthritic changes, most predominantly affecting the second and third metacarpal phalangeal joints. Differential diagnosis includes pyrophosphate arthropathy, hemachromatosis, and rheumatoid arthritis . 2. Change at the left first carpometacarpal joint suggesting an element of osteoarthritis though this is not the predominant type. 3. Mild calcific atherosclerosis. Reviewed by: Leydi Garcias MD on 10/16/2020 3:16 PM PDT Approved by: Leydi Garcias MD on 10/16/2020 3:16 PM PDT Station ID: [id number]
--- NOTE | 2020-10-16 15:19 | XRAY Report ---
PROCEDURE: Knee 2 View BILAT INDICATIONS: PAIN IN UNSPECIFIED JOINT TECHNIQUE: 2 views of the bilateral knee(s) were acquired. COMPARISON: None. FINDINGS: Bones: No fractures or dislocations. Symmetric medial and lateral compartment joint space loss. Smal l bilateral lateral compartment spurs. Minor patellofemoral compartment spurs. No suspicious bony les ions. Soft tissues: Small bilateral joint effusion. No suspicious soft tissue calcifications. No visible chondrocalcinosis. IMPRESSION: 1. Small bilateral, symmetric joint effusions. 2. Small spurs in the bilateral lateral and patellofemoral compartments. Reviewed by: Leydi Garcias MD on 10/16/2020 3:18 PM PDT Approved by: Leydi Garcias MD on 10/16/2020 3:18 PM PDT Station ID: [id number]
== END 2020-10-16 11:46 | disposition home or self-care (01) ==
LOC: DI 11:45
PROVIDERS: ATTEND Internal Medicine Rheumatology
DX: M25.50 Pain in unspecified joint (principal); M25.461 Effusion, right knee; M25.462 Effusion, left knee; M76.892 Other specified enthesopathies of left lower limb, excluding foot; M76.891 Other specified enthesopathies of right lower limb, excluding foot; M19.042 Primary osteoarthritis, left hand; M19.041 Primary osteoarthritis, right hand

== ENCOUNTER 2020-11-08 08:29 | Outpatient (CLI) | payer MEDICARE ==
[2020-11-08 09:02] LABS: BASOPHILS % (AUTO) 0.4 %; EOSINOPHILS # (AUTO) 0.2 10^3/uL (0.0-0.7); EOSINOPHILS % (AUTO) 2.5 %; HCT - HEMATOCRIT 45.9 % (42.0-52.0); LYMPHOCYTES % (AUTO) 21.9 %; MEAN CORPUSCULAR HEMOGLOBIN 29.9 pg (27.0-31.0); MEAN CORPUSCULAR HGB CONC 32.7 g/dL (32.0-36.0); MEAN CORPUSCULAR VOLUME 91.6 fL (80.0-94.0); MONOCYTES # (AUTO) 0.7 10^3/uL (0.0-1.0); MONOCYTES % (AUTO) 7.5 %; NEUTROPHILS # (AUTO) 6.3 10^3/uL (1.5-6.6); NEUTROPHILS % (AUTO) 67.3 %; PLT - PLATELET COUNT 170 10^3/uL (130-450); RED BLOOD COUNT 5.01 10^6/uL (4.70-6.10); RED CELL DISTRIBUTION WIDTH 14.4 % (12.0-15.0); WHITE BLOOD COUNT 9.3 x10^3/uL (4.8-10.8)
[2020-11-08 09:11] LABS: ALBUMIN 4.1 g/dL (3.2-5.5); ALBUMIN/GLOBULIN RATIO 1.4 (1.0-2.2); BILIRUBIN,TOTAL 1.1 mg/dL (0.2-1.0); CALCIUM 9.2 mg/dL (8.5-10.3); POTASSIUM 4.1 mmol/L (3.5-5.0); TOTAL PROTEIN 7.1 g/dL (6.7-8.2)
[2020-11-08 09:15] LABS: INR 2.8 (0.8-1.2)
[2020-11-08 12:27] LABS: LITHIUM 0.43 mmol/L
[2020-11-08 12:32] LABS: ESTIMATED AVERAGE GLUCOSE 120 mg/dL (70-100); HEMOGLOBIN A1c% 5.8 % (4.27-6.07)
== END 2020-11-08 08:30 | disposition home or self-care (01) ==
LOC: LAB 08:29
PROVIDERS: ATTEND Internal Medicine
DX: I26.99 Other pulmonary embolism without acute cor pulmonale (principal); Z79.01 Long term (current) use of anticoagulants; Z79.899 Other long term (current) drug therapy; R73.01 Impaired fasting glucose; I12.9 Hypertensive chronic kidney disease with stage 1 through stage 4 chronic kidney disease, or unspecified chronic kidney disease; N18.9 Chronic kidney disease, unspecified; F31.89 Other bipolar disorder
CPT/HCPCS: 36415; 80053; 80175; 80178; 83036; 85025; 85610

== ENCOUNTER 2020-12-04 15:44 | Outpatient (CLI) | payer MEDICARE | END 2020-12-04 15:45 | disposition home or self-care (01) | LOC: LAB 15:44 | PROVIDERS: ATTEND Internal Medicine | DX: I26.99 Other pulmonary embolism without acute cor pulmonale (principal); Z79.01 Long term (current) use of anticoagulants | CPT/HCPCS: 85610 ==

== ENCOUNTER 2021-01-11 16:03 | Outpatient (CLI) | payer MEDICARE | END 2021-01-11 16:04 | disposition home or self-care (01) | LOC: LAB 16:03 | PROVIDERS: ATTEND Internal Medicine | DX: I12.9 Hypertensive chronic kidney disease with stage 1 through stage 4 chronic kidney disease, or unspecified chronic kidney disease (principal); N18.9 Chronic kidney disease, unspecified; Z13.220 Encounter for screening for lipoid disorders; Z79.899 Other long term (current) drug therapy ==

== ENCOUNTER 2021-01-12 11:21 | Outpatient (CLI) | payer MEDICARE ==
[2021-01-12 11:28] LABS: BASOPHILS # (AUTO) 0.1 10^3/uL (0.0-0.1); EOSINOPHILS # (AUTO) 0.3 10^3/uL (0.0-0.7); HCT - HEMATOCRIT 45.4 % (42.0-52.0); HGB - HEMOGLOBIN 14.8 g/dL (14.0-18.0); LYMPHOCYTES % (AUTO) 26.6 %; MEAN CORPUSCULAR HEMOGLOBIN 30.3 pg (27.0-31.0); MEAN CORPUSCULAR HGB CONC 32.6 g/dL (32.0-36.0); MEAN CORPUSCULAR VOLUME 92.8 fL (80.0-94.0); MEAN PLATELET VOLUME 9.1 fL (7.4-11.4); MONOCYTES # (AUTO) 0.8 10^3/uL (0.0-1.0); MONOCYTES % (AUTO) 9.9 %; NEUTROPHILS # (AUTO) 4.5 10^3/uL (1.5-6.6); NEUTROPHILS % (AUTO) 58.1 %; PLT - PLATELET COUNT 195 10^3/uL (130-450); RED BLOOD COUNT 4.89 10^6/uL (4.70-6.10); RED CELL DISTRIBUTION WIDTH 14.6 % (12.0-15.0); WHITE BLOOD COUNT 7.7 x10^3/uL (4.8-10.8)
[2021-01-12 11:46] LABS: ALBUMIN 4.1 g/dL (3.2-5.5); ALBUMIN/GLOBULIN RATIO 1.5 (1.0-2.2); ALKALINE PHOSPHATASE 61 IU/L (42-121); ALT ALANINE AMINOTRANSFERASE 30 IU/L (10-60); AST ASPARTATE AMINOTRANSFERASE 26 IU/L (10-42); BILIRUBIN,TOTAL 0.6 mg/dL (0.2-1.0); BUN - BLOOD UREA NITROGEN 12 mg/dL (6-20); CALCIUM 9.2 mg/dL (8.5-10.3); CARBON DIOXIDE - CO2 24 mmol/L (21-32); CHLORIDE 108 mmol/L (101-111); CHOL/HDL RATIO 4.3 (<5.0); CHOLESTEROL 194 mg/dL; GFR - MDRD 73 (>89); GLUCOSE 117 mg/dL (70-100); HDL CHOLESTEROL 45 mg/dL; LDL CHOLESTEROL,CALCULATED 135 mg/dL; POTASSIUM 4.4 mmol/L (3.5-5.0); SODIUM 140 mmol/L (135-145); TOTAL PROTEIN 6.9 g/dL (6.7-8.2); TRIGLYCERIDES 68 mg/dL; VLDL CHOLESTEROL 14 mg/dL
[2021-01-12 12:33] LABS: LITHIUM 0.37 mmol/L
== END 2021-01-12 23:59 | disposition home or self-care (01) ==
LOC: LAB.WCP 11:21
PROVIDERS: ATTEND Internal Medicine
DX: I12.9 Hypertensive chronic kidney disease with stage 1 through stage 4 chronic kidney disease, or unspecified chronic kidney disease (principal); N18.9 Chronic kidney disease, unspecified; Z13.220 Encounter for screening for lipoid disorders; Z79.899 Other long term (current) drug therapy; Z79.01 Long term (current) use of anticoagulants; I26.99 Other pulmonary embolism without acute cor pulmonale
CPT/HCPCS: 36415; 80053; 80061; 80175; 80178; 83721; 85025; 85610

== ENCOUNTER 2021-02-16 14:21 | Outpatient (CLI) | payer MEDICARE ==
--- NOTE | 2021-02-16 16:14 | XRAY Report ---
PROCEDURE: Cervical Spine Complete INDICATIONS: CERVICAL RADICULOPATHY TECHNIQUE: 6 view(s) of the cervical spine were acquired. COMPARISON: None. FINDINGS: C-SPINE: No acute, displaced fracture or malalignment. The vertebral body heights and intervertebral disc spaces are essentially maintained. Minimal grade 1 anterolisthesis at C4-5 and C5-6. No abnormal subluxation with flexion or extension. Uncovertebral/facet arthrosis. SOFT TISSUES: No prevertebral soft tissue thickening. IMPRESSION: 1.No acute osseous abnormality of the cervical spine. Reviewed by: Adin Henson MD on 02/16/2021 4:13 PM PST Approved by: Adin Henson MD on 02/16/2021 4:13 PM PST Station ID: [id number]
== END 2021-02-16 14:22 | disposition home or self-care (01) ==
LOC: DI 14:21
PROVIDERS: ATTEND Neurological Surgery
DX: M47.812 Spondylosis without myelopathy or radiculopathy, cervical region (principal)

== ENCOUNTER 2021-02-23 11:06 | Outpatient (CLI) | payer MEDICARE ==
[2021-02-23 11:37] LABS: BASOPHILS # (AUTO) 0.1 10^3/uL (0.0-0.1); BASOPHILS % (AUTO) 0.8 %; EOSINOPHILS # (AUTO) 0.3 10^3/uL (0.0-0.7); EOSINOPHILS % (AUTO) 4.4 %; HCT - HEMATOCRIT 46.9 % (42.0-52.0); HGB - HEMOGLOBIN 15.5 g/dL (14.0-18.0); LYMPHOCYTES % (AUTO) 28.2 %; MEAN CORPUSCULAR HEMOGLOBIN 30.7 pg (27.0-31.0); MEAN CORPUSCULAR VOLUME 92.9 fL (80.0-94.0); MEAN PLATELET VOLUME 9.1 fL (7.4-11.4); MONOCYTES # (AUTO) 0.7 10^3/uL (0.0-1.0); NEUTROPHILS % (AUTO) 56.3 %; PLT - PLATELET COUNT 191 10^3/uL (130-450); RED BLOOD COUNT 5.05 10^6/uL (4.70-6.10); RED CELL DISTRIBUTION WIDTH 14.3 % (12.0-15.0); WHITE BLOOD COUNT 7.1 x10^3/uL (4.8-10.8)
[2021-02-23 12:05] LABS: ALBUMIN 4.4 g/dL (3.2-5.5); ALBUMIN/GLOBULIN RATIO 1.4 (1.0-2.2); ALKALINE PHOSPHATASE 61 IU/L (42-121); ALT ALANINE AMINOTRANSFERASE 28 IU/L (10-60); AST ASPARTATE AMINOTRANSFERASE 27 IU/L (10-42); BILIRUBIN,TOTAL 0.7 mg/dL (0.2-1.0); BUN - BLOOD UREA NITROGEN 11 mg/dL (6-20); CALCIUM 9.5 mg/dL (8.5-10.3); CARBON DIOXIDE - CO2 26 mmol/L (21-32); CHLORIDE 104 mmol/L (101-111); CHOL/HDL RATIO 3.7 (<5.0); CHOLESTEROL 169 mg/dL; CREATININE 1.2 mg/dL (0.6-1.2); GFR - MDRD 59 (>89); GLUCOSE 120 mg/dL (70-100); HDL CHOLESTEROL 46 mg/dL; LDL CHOLESTEROL,CALCULATED 110 mg/dL; LDL/HDL RATIO 2.4 (<3.6); SODIUM 140 mmol/L (135-145); TOTAL PROTEIN 7.5 g/dL (6.7-8.2); TRIGLYCERIDES 63 mg/dL; VLDL CHOLESTEROL 13 mg/dL
[2021-02-23 12:18] LABS: CRP - C-REACTIVE PROTEIN < 1.0 mg/dL (0-1.0)
[2021-02-23 16:42] LABS: LITHIUM 0.39 mmol/L
== END 2021-02-23 11:07 | disposition home or self-care (01) ==
LOC: LAB 11:06
PROVIDERS: ATTEND Internal Medicine
DX: Z79.01 Long term (current) use of anticoagulants (principal); I26.99 Other pulmonary embolism without acute cor pulmonale; Z79.899 Other long term (current) drug therapy; I10 Essential (primary) hypertension; Z13.220 Encounter for screening for lipoid disorders; M25.50 Pain in unspecified joint
CPT/HCPCS: 36415; 80053; 80061; 80175; 80178; 83721; 85025; 85610; 85651; 86140

== ENCOUNTER 2021-04-14 08:00 | Outpatient (CLI) | payer MEDICARE | END 2021-04-14 23:59 | LOC: LAB 08:00 | PROVIDERS: ATTEND Internal Medicine | DX: Z79.01 Long term (current) use of anticoagulants (principal); I26.99 Other pulmonary embolism without acute cor pulmonale | CPT/HCPCS: 36416; 85610 ==

== ENCOUNTER 2021-04-29 13:51 | Outpatient (CLI) | payer MEDICARE | END 2021-04-29 13:52 | disposition home or self-care (01) | LOC: LAB 13:51 | PROVIDERS: ATTEND Internal Medicine | DX: Z79.01 Long term (current) use of anticoagulants (principal); I26.99 Other pulmonary embolism without acute cor pulmonale | CPT/HCPCS: 36416; 85610 ==

== ENCOUNTER 2021-05-19 14:09 | Outpatient (CLI) | payer MEDICARE | END 2021-05-19 14:10 | disposition home or self-care (01) | LOC: LAB 14:09 | PROVIDERS: ATTEND Internal Medicine | DX: I26.99 Other pulmonary embolism without acute cor pulmonale (principal); Z79.01 Long term (current) use of anticoagulants | CPT/HCPCS: 36416; 85610 ==

== ENCOUNTER 2021-06-04 10:50 | Outpatient (CLI) | payer MEDICARE ==
[2021-06-04 12:01] VITALS: BP 132/79
--- NOTE | 2021-06-04 12:01 | SLEEP CARE CONSULTATION ---
Information from patient questionnaire entered by Alea Delgado MA. I have reviewed and concur with the information entered by Alea Delgado MA. This document represents the service I personally performed and the decisions made by me, Rupert Rocha MD, [facility]. History of Present Illness Service Date and Time: 06/04/2021 1050 Previous diagnosis: Moderate, Obstructive Sleep Apnea-Hypopnea Syndrome, Central Sleep Apnea-Hypopnea Syndrome AHI: 20.3 (in 2010)(52.2 in 2004) Reason for follow up: annual (NEED AUTH, LAST SEEN 11/2019, RESMED,) Equipment type: BiPAP Equipment obtained from: [employer] Mask style: Full face (Air Touch) Prior sleep studies: Yes Year and Where: 2004 and 2010 - [facility] Sleep Type of Sleep Study: Polysomnography HPI additional information: Mr. Chew was called today to follow up on the BiPAP therapy. He was diagnosed to have severe central sleep apnea-hypopnea syndrome. [employer] is his durable medical supplier. The patient wears a nasal mask. He reports using the device almost nightly but not all through the night. The compliance report shows usage in 325 nights out of the past 365 nights, averaging 3.9 hours a night. The > 4 hour compliance rate for the past 365 days is 42%. The [id number] compliance is because he sleeps part of the night in a recliner and does not use the BiPAP there. He complained of no particular problem with the device such as soreness on the face, dry nose, epistaxis, nasal congestion or headache. He thinks that the pressure 21/17 cmH2O is comfortable. On the BiPAP therapy he notices some improvement in his sleep quality, and that he wakes up feeling fresher in the morning and more awake/alert during the day. The average residual AHI is 15.3; and average air leak is 47 L/minute. Sleep Study - Results Type of Sleep Study: Polysomnography Prior sleep studies: Yes Year and Where: 2004 and 2010 - [facility] Sleep Subjective Initial [place] Sleepiness Scale score: 8 (in 2004) Allergies and Home Medications Drug allergies reviewed: Yes Home medication list reviewed: Yes Allergy and home medication list: Allergies iodine Allergy (Verified 09/08/20 15:48) Unknown latex Allergy (Verified 09/08/20 15:48) Rash Review of Systems Review of systems same as previous: Yes Physical Exam Vital signs obtained and entered by: CARYN VAUGHAN Blood Pressure: 132/79 (RIGHT, PULSE 64, RESP 18,) Heart Rate: 64 O2 Saturation: 97 (N95) Height: 5 ft 10 in Weight: 235 lb Weight change since last visit: LOST 10LB, IN 2 WEEKS, NO URGE TO EAT Body Mass Index: 33.7 BMI Classification: Obese Impression and Plan IMPRESSION: 1. Central Sleep Apnea, moderate (AHI was 20.3 in 2010), with the patient not doing well on BiPAP therapy. He has [id number] compliance and the pressure setting appears ineffective, possibly due to the profuse air leak. He will be eligible for a new device in just 3 months. However, because it has been 10 year since he had his last diagnostic sleep study, I will order a new on e to reassess the severity of the sleep-disordered breathing. He did gain 40 lbs over the past 10 years. PLAN: 1. BiPAP lowered to 18/14 cmH2O to help with air leak. 2. Try to lose weight 3. Repeat in-laboratory polysomnography. 4. Return for follow up after the sleep study. Adjust device pressure to (cmH2O): 18/14 Follow up with Sleep Care in: 1-2 months Visit Type: In Office Time Spent with Patient (minutes): 15 Provider Statement: I spent 100% of the Face to Face Visit with the patient with greater than 50% spent counseling the patient and coordination of care.
== END 2021-06-04 10:51 | disposition home or self-care (01) ==
LOC: SC 10:50
PROVIDERS: ATTEND Internal Medicine Pulmonary Disease
DX: G47.31 Primary central sleep apnea (principal); E66.9 Obesity, unspecified; Z68.33 Body mass index [BMI] 33.0-33.9, adult
CPT/HCPCS: 99212; G0463

== ENCOUNTER 2021-07-02 20:38 | Outpatient (CLI) | payer MEDICARE | END 2021-07-02 20:39 | disposition home or self-care (01) | LOC: SC 20:38 | PROVIDERS: ATTEND Internal Medicine Pulmonary Disease | DX: G47.31 Primary central sleep apnea (principal); G47.33 Obstructive sleep apnea (adult) (pediatric) | CPT/HCPCS: 95810 ==

== ENCOUNTER 2021-07-12 16:00 | Outpatient (CLI) | payer MEDICARE | END 2021-07-12 16:01 | disposition home or self-care (01) | LOC: LAB 16:00 | PROVIDERS: ATTEND Nurse Practitioner Family | DX: Z79.01 Long term (current) use of anticoagulants (principal); I26.99 Other pulmonary embolism without acute cor pulmonale | CPT/HCPCS: 36416; 85610 ==

== ENCOUNTER 2021-07-20 13:53 | Outpatient (CLI) | payer MEDICARE ==
[2021-07-20 15:49] LABS: RHEUMATOID FACTOR NEGATIVE (Negative)
[2021-07-21 19:07] LABS: ANTI-DNA (DS) AB QN <1 IU/mL (0-9); CENTROMERE B ANTIBODIES <0.2 AI (0.0-0.9); CHROMATIN ANTIBODIES <0.2 AI (0.0-0.9); JO-1 AB <0.2 AI (0.0-0.9); RIBOSOMAL P ANTIBODIES <0.2 AI (0.0-0.9); RNP ANTIBODIES 0.3 AI (0.0-0.9); SCLERODERMA-70 ANTIBODIES <0.2 AI (0.0-0.9); SJOGREN'S ANTI-SS-A <0.2 AI (0.0-0.9); SJOGREN'S ANTI-SS-B <0.2 AI (0.0-0.9); SMITH ANTIBODIES <0.2 AI (0.0-0.9); SMITH/RNP ANTIBODIES <0.2 AI (0.0-0.9)
[2021-07-23 21:07] LABS: CYCLIC CITRULLINATED PEP IGG/A 5 units (0-19)
== END 2021-07-20 13:54 | disposition home or self-care (01) ==
LOC: LAB 13:53
PROVIDERS: ATTEND Internal Medicine Rheumatology
DX: M25.50 Pain in unspecified joint (principal); Z79.01 Long term (current) use of anticoagulants; I26.99 Other pulmonary embolism without acute cor pulmonale
CPT/HCPCS: 36415; 85610; 85651; 86140; 86200; 86225; 86235; 86430

== ENCOUNTER 2021-07-31 15:16 | Outpatient (CLI) | payer MEDICARE ==
--- NOTE | 2021-07-31 15:37 | SLEEP CARE CONSULTATION ---
Information from patient questionnaire entered by Alea Delgado MA. I have reviewed and concur with the information entered by Alea Delgado MA. This document represents the service I personally performed and the decisions made by , Ysabel Cooper ARNP. History of Present Illness Service Date and Time: 07/31/2021 1500 Initial [place] Sleepiness Scale score: 8 (in 2004) Current [place] Sleepiness Scale score: 10 Additional HPI information: WILLIAM BERRY returns via video telehealth visit for follow up and results of the recently performed polysomnography. Patient is currently using a BIPAP machine set at 18/14 cmH2O. He returns to find out results of recent PSG to reverify his severity and diagnosis. Patient counseled not drink alcohol less than 4 hours before bedtime as it can increase snoring and apnea. Patient was cautioned about risks of drowsy driving until sleepiness symptoms resolve. Sleep Study - Results Type of Sleep Study: Polysomnography (F/U POLY, 07/02/21 [facility],) Prior sleep studies: Yes Year and Where: 2004 and 2010 - Located within [facility] Sleep Polysomnography/Home Sleep Study results: IMPRESSION: The quality of the study is good. The patient had reduced sleep efficiency due to two prolonged awakenings during the night. The sleep architecture was abnormal for sleep fragmentation and lack of REM and slow wave sleep (N3). Respiratory monitoring showed severe obstructive and central sleep apnea-hypopnea (AHI = 62.3) associated with frequent arousals, oxyhemoglobin desaturation and mild hypoxia (selin oxygen saturation of 85%). The patient only slept supine during this study. Snore was moderate to loud in intensity. There was No significant periodic limb movement of sleep. Cardiac rhythm was normal sinus rhythm without significant arrhythmia. No abnormal behavior (parasomnia) observed during the night. Allergies and Home Medications Home medication list reviewed: Yes (no changes) Allergy and home medication list: Allergies iodine Allergy (Verified 09/08/20 15:48) Unknown latex Allergy (Verified 09/08/20 15:48) Rash Review of Systems Review of systems same as previous: No (steroid injection; Bipolar) Physical Exam Vital signs obtained and entered by: CARYN VAUGHAN Height: 5 ft 10 in Weight: 235 lb (per pt report) Body Mass Index: 33.7 BMI Classification: Obese Impression and Plan 1. Obstructive and Central Sleep Apnea-Hypopnea Syndrome, severe, with lowest oxygen saturation of 85%. Obviously this is the cause of the patients symptoms of unrefreshed sleep, and excessive daytime sleepiness. Positive pressure therapy could benefit depression and anxiety. Patient is to continue on his BIPAP therapy with his pressure settings at 18/14 cmH2O. He is using a nasal pillows mask. He would like to explore other mask options that will help him sleep better. I will write for a mask refitting to discuss different mask options. I will discuss pressure change with Dr. So since his AHI is more elevated with current pressure on his BIPAP. * Continue BIPAP pressure at 18/14 cmH2O * Mask refitting to discuss mask change with DME * Discuss possible pressure change with Dr. So * Notify me if snoring with mask or feeling that the pressure is too much or too little * Call this office if any problems using CPAP * Return for follow up in 1-[address] Rocha, or sooner if concerns arise Visit Type: Telehealth Video ([phone] HOME) Video Type: Doximity Patient Location: Home Location of Provider: Office Patient agrees and consents to this telehealth visit type: Yes Patient agrees to have their insurance billed: Yes Time Spent with Patient (minutes): 26 Provider Statement: I spent 100% of the Telehealth Video Call with the patient with greater than 50% spent counseling the patient and coordination of care.
== END 2021-07-31 15:17 | disposition home or self-care (01) ==
LOC: SC 15:16
PROVIDERS: ATTEND Nurse Practitioner Family
DX: G47.31 Primary central sleep apnea (principal); G47.33 Obstructive sleep apnea (adult) (pediatric); E66.9 Obesity, unspecified; Z68.33 Body mass index [BMI] 33.0-33.9, adult

== ENCOUNTER 2021-09-03 10:48 | Outpatient (CLI) | payer MEDICARE ==
[2021-09-03 22:22] VITALS: BP 156/94
--- NOTE | 2021-09-03 22:22 | SLEEP CARE CONSULTATION ---
Information from patient questionnaire entered by Alea Ojeda MA. I have reviewed and concur with the information entered by Alea Ojeda MA. This document represents the service I personally performed and the decisions made by me, Rupert Rocha MD, [facility]. History of Present Illness Service Date and Time: 09/03/2021 1048 Previous diagnosis: Moderate, Obstructive Sleep Apnea-Hypopnea Syndrome, Central Sleep Apnea-Hypopnea Syndrome AHI: 20.3 (in 2010)(52.2 in 2004) Reason for follow up: one month (PRESSURE CHANGE?, RESMED, BOND 10/01/2016? RX NEW MACHINE? ) Equipment type: BiPAP Equipment obtained from: [employer] Mask style: Full face (Air Touch) Prior sleep studies: Yes Year and Where: 2004 and 2010 - [facility] Sleep Type of Sleep Study: Polysomnography (F/U POLY, 07/02/21 [facility],) HPI additional information: Mr. Chew returned for follow up of the sleep study he had on 07/02/2021. The polysomnography showed that the patient had reduced sleep efficiency due to two prolonged awakenings during the night. The sleep architecture was abnormal for sleep fragmentation and lack of REM and slow wave sleep (N3). Respiratory monitoring showed severe obstructive and central sleep apnea-hypopnea (AHI = 62.3) associated with frequent arousals, oxyhemoglobin desaturation and mild hypoxia (selin oxygen saturation of 85%). The patient only slept supine during this study. Snore was moderate to loud in intensity. There was No significant periodic limb movement of sleep. Cardiac rhythm was normal sinus rhythm without significant arrhythmia. No abnormal behavior (parasomnia) observed during the night. The patient was informed of these findings. I explained to him the pathophysiology behind central and obstructive sleep apnea. The patient is using his BiPAP part of the time. He is having back pain that requires him to sleep in a recliner. He switched to a nasal mask about a month ago and the air leak has dropped. The residual AHI also came down. He is scheduled to have a b ack surgery in 1 2 weeks. Sleep Study - Results Type of Sleep Study: Polysomnography (F/U POLY, 07/02/21 [facility],) Prior sleep studies: Yes Year and Where: 2004 and 2010 - [facility] Sleep Subjective Missed days of use due to: reports: mask issues, illness Patient concerns: reports: dry mouth, nose, throat Current pressure setting perceived as: comfortable Initial [place] Sleepiness Scale score: 8 (in 2004) Current [place] Sleepiness Scale score: 9 (09/03/2021) Allergies and Home Medications Drug allergies reviewed: Yes Home medication list reviewed: Yes Allergy and home medication list: Allergies iodine Allergy (Verified 09/08/20 15:48) Unknown latex Allergy (Verified 09/08/20 15:48) Rash Review of Systems Review of systems same as previous: Yes Physical Exam Vital signs obtained and entered by: Zafar OJEDA CMA AAMATILDE Blood Pressure: 156/94 (resp 18, pulse 62, left) Heart Rate: 62 O2 Saturation: 96 (n95) Height: 5 ft 10 in Weight: 231 lb Body Mass Index: 33.1 BMI Classification: Obese Impression and Plan IMPRESSION: 1. Central and Obstructive Sleep Apnea-Hypopnea Syndrome, severe. Obstructive sleep apnea-hypopnea most likely occurs because of his significant weight gain. Even though the residual AHI remains high, it is much better than without the BiPAP. The new mask appears to make the treatment more effective. I will not make any change right now. I would like to see him back after his surgery when he can use his device more consistently. PLAN: 1. Leave the BiPAP at the current pressure setting. 2. Attempt to lose weight and avoid alcohol consumption near bedtime. 3. Return in 3 months for a follow up. Follow up with Sleep Care in: 3 months Visit Type: In Office Time Spent with Patient (minutes): 20 Provider Statement: I spent 100% of the Face to Face Visit with the patient with greater than 50% spent counseling the patient and coordination of care.
== END 2021-09-03 10:49 | disposition home or self-care (01) ==
LOC: SC 10:48
PROVIDERS: ATTEND Internal Medicine Pulmonary Disease
DX: G47.31 Primary central sleep apnea (principal); G47.33 Obstructive sleep apnea (adult) (pediatric); E66.9 Obesity, unspecified; Z68.33 Body mass index [BMI] 33.0-33.9, adult
CPT/HCPCS: 99213; G0463; 99212

== ENCOUNTER 2021-10-17 19:35 | Outpatient (CLI) | payer MEDICARE ==
[2021-10-17 20:05] LABS: INR 2.6 (0.8-1.2); PT - PROTHROMBIN TIME 28.4 secs (9.9-12.6)
[2021-10-17 20:16] LABS: ALBUMIN 4.1 g/dL (3.2-5.5); ALBUMIN/GLOBULIN RATIO 1.3 (1.0-2.2); BILIRUBIN,TOTAL 0.9 mg/dL (0.2-1.0); CALCIUM 9.8 mg/dL (8.5-10.3); CREATININE 1.1 mg/dL (0.6-1.2); POTASSIUM 4.1 mmol/L (3.5-5.0); TOTAL PROTEIN 7.2 g/dL (6.7-8.2)
== END 2021-10-17 19:36 | disposition home or self-care (01) ==
LOC: LAB 19:35
PROVIDERS: ATTEND Nurse Practitioner Family
DX: I26.99 Other pulmonary embolism without acute cor pulmonale (principal); Z79.01 Long term (current) use of anticoagulants; Z79.899 Other long term (current) drug therapy; N28.9 Disorder of kidney and ureter, unspecified
CPT/HCPCS: 36415; 80053; 80178; 85610

== ENCOUNTER 2021-12-03 11:07 | Outpatient (CLI) | payer MEDICARE ==
--- NOTE | 2021-12-03 11:13 | SLEEP CARE CONSULTATION ---
Information from patient questionnaire entered by Luis Calvo. I have reviewed and concur with the information entered by Luis Calvo. This document represents the service I personally performed and the decisions made by me, Rupert Rocha MD, [facility]. History of Present Illness Service Date and Time: 12/03/2021 1107 Previous diagnosis: Moderate, Obstructive Sleep Apnea-Hypopnea Syndrome, Central Sleep Apnea-Hypopnea Syndrome AHI: 20.3 (in 2010)(52.2 in 2004) Reason for follow up: three month Equipment type: BiPAP (RESMED) Equipment obtained from: [employer] Mask style: Full face (Air Touch) Prior sleep studies: Yes Year and Where: 2004 and 2010 - [facility] Sleep Type of Sleep Study: Polysomnography (F/U POLY, 07/02/21 [facility],) HPI additional information: Mr. Chew returned for follow up of BiPAP therapy. The patient recently had a back surgery and is sleeping in a recliner. The patient has not used his BiPAP much that past 2 months. He gets his supplies through [employer] because he has [employer]. The compliance data show usage in 22 out of the past 60 nights, averaging 2.7 hours a night. The > 4 hour compliance rate for the past 60 days is only 7%. The residual AHI is 25.3 and average air leak is 57 L/minute. The BiPAP is set at 23/19 cmH2O which he finds comfortable. Sleep Study - Results Type of Sleep Study: Polysomnography (F/U POLY, 07/02/21 [facility],) Prior sleep studies: Yes Year and Where: 2004 and 2010 - [facility] Sleep CPAP Compliance Data - Data Reviewed with Patient Average duration of nightly device use: 3 hours. 13 minutes Compliance rate %: 14 (09/01/21 to 11/29/21) Average residual AHI: 18.7 Subjective Initial [place] Sleepiness Scale score: 8 (in 2004) Current [place] Sleepiness Scale score: 12 (12/03/21) Allergies and Home Medications Drug allergies reviewed: Yes Home medication list reviewed: Yes Allergy and home medication list: Allergies iodine Allergy (Verified 09/08/20 15:48) Unknown latex Allergy (Verified 09/08/20 15:48) Rash Review of Systems Review of systems same as previous: Yes Physical Exam Vital signs obtained and entered by: via phone Height: 5 ft 10 in Weight: 230 lb Body Mass Index: 33.0 BMI Classification: Obese Impression and Plan IMPRESSION: 1. Central and Obstructive Sleep Apnea-Hypopnea Syndrome, severe. The patient is not using his BiPAP much because back surgeries and because his mask does not fit right. [facility] is sending him a different mask. Presently, he is sleeps sitting up in a recliner. He has difficulty turning the humidity up. PLAN: 1. Leave the BiPAP at the current pressure setting. Heated humidifier raised to 4 for him. 2. Attempt to lose weight and avoid alcohol consumption near bedtime. 3. Return in 3 months for a follow up. Follow up with Sleep Care in: 3 months Visit Type: Telehealth Video ([phone]) Patient Location: Home Patient agrees and consents to this telehealth visit type: Yes Patient agrees to have their insurance billed: Yes Time Spent with Patient (minutes): 15 Provider Statement: I spent 100% of the Telehealth Video Call with the patient with greater than 50% spent counseling the patient and coordination of care.
== END 2021-12-03 11:08 | disposition home or self-care (01) ==
LOC: SC 11:07
PROVIDERS: ATTEND Internal Medicine Pulmonary Disease
DX: G47.31 Primary central sleep apnea (principal); G47.33 Obstructive sleep apnea (adult) (pediatric); E66.9 Obesity, unspecified; Z68.33 Body mass index [BMI] 33.0-33.9, adult

== ENCOUNTER 2021-12-27 10:29 | Outpatient (CLI) | payer MEDICARE ==
[2021-12-27 11:11] LABS: ALBUMIN 4.2 g/dL (3.2-5.5); ALBUMIN/GLOBULIN RATIO 1.5 (1.0-2.2); BILIRUBIN,TOTAL 0.9 mg/dL (0.2-1.0); CALCIUM 9.4 mg/dL (8.5-10.3); CREATININE 1.1 mg/dL (0.6-1.2); POTASSIUM 4.1 mmol/L (3.5-5.0)
[2021-12-27 11:34] LABS: LITHIUM 0.64 mmol/L
== END 2021-12-27 10:30 | disposition home or self-care (01) ==
LOC: LAB 10:29
PROVIDERS: ATTEND Nurse Practitioner Family
DX: N28.9 Disorder of kidney and ureter, unspecified (principal); F31.9 Bipolar disorder, unspecified; R39.15 Urgency of urination; I26.99 Other pulmonary embolism without acute cor pulmonale; Z79.01 Long term (current) use of anticoagulants; Z79.899 Other long term (current) drug therapy; Z91.89 Other specified personal risk factors, not elsewhere classified
CPT/HCPCS: 36415; 80053; 80178; 84153; 85610

== ENCOUNTER 2022-01-29 08:27 | Outpatient (CLI) | payer MEDICARE | END 2022-01-29 08:28 | disposition home or self-care (01) | LOC: LAB 08:27 | PROVIDERS: ATTEND Nurse Practitioner Family | DX: I26.99 Other pulmonary embolism without acute cor pulmonale (principal); Z79.01 Long term (current) use of anticoagulants | CPT/HCPCS: 36416; 85610 ==

== ENCOUNTER 2022-02-01 15:01 | Outpatient (CLI) | payer MEDICARE ==
[2022-02-01 15:18] LABS: BASOPHILS # (AUTO) 0.1 10^3/uL (0.0-0.1); BASOPHILS % (AUTO) 0.6 %; EOSINOPHILS # (AUTO) 0.2 10^3/uL (0.0-0.7); HCT - HEMATOCRIT 46.4 % (42.0-52.0); HGB - HEMOGLOBIN 15.4 g/dL (14.0-18.0); LYMPHOCYTES # (AUTO) 2.3 10^3/uL (1.5-3.5); LYMPHOCYTES % (AUTO) 29.7 %; MEAN CORPUSCULAR HEMOGLOBIN 31.6 pg (27.0-31.0); MEAN CORPUSCULAR HGB CONC 33.2 g/dL (32.0-36.0); MEAN CORPUSCULAR VOLUME 95.3 fL (80.0-94.0); MONOCYTES # (AUTO) 0.7 10^3/uL (0.0-1.0); MONOCYTES % (AUTO) 9.2 %; NEUTROPHILS # (AUTO) 4.4 10^3/uL (1.5-6.6); NEUTROPHILS % (AUTO) 57.2 %; PLT - PLATELET COUNT 185 10^3/uL (130-450); RED BLOOD COUNT 4.87 10^6/uL (4.70-6.10); RED CELL DISTRIBUTION WIDTH 13.9 % (12.0-15.0); WHITE BLOOD COUNT 7.7 x10^3/uL (4.8-10.8)
[2022-02-01 15:22] LABS: BILIRUBIN,URINE NEGATIVE (NEGATIVE); GLUCOSE, URINE (UA) NEGATIVE (NEGATIVE); KETONES,URINE (UA) NEGATIVE (NEGATIVE); LEUKOCYTE ESTERASE, URINE NEGATIVE (NEGATIVE); NITRITE,URINE NEGATIVE (NEGATIVE); OCCULT BLOOD,URINE TRACE-INTA (NEGATIVE); PROTEIN,URINE NEGATIVE (NEGATIVE); UROBILINOGEN,URINE 0.2 (NORMAL) E.U./dL (NORMAL)
[2022-02-01 15:26] LABS: CLARITY,URINE CLEAR (CLEAR)
[2022-02-01 15:33] LABS: ALBUMIN 4.4 g/dL (3.2-5.5); ALBUMIN/GLOBULIN RATIO 1.4 (1.0-2.2); BILIRUBIN,TOTAL 0.6 mg/dL (0.2-1.0); CALCIUM 9.6 mg/dL (8.5-10.3); POTASSIUM 3.8 mmol/L (3.5-5.0); TOTAL PROTEIN 7.5 g/dL (6.7-8.2)
[2022-02-01 15:42] LABS: BACTERIA,URINE Rare /HPF (None Seen); RBC,URINE 0-5 /HPF (0-5); SQUAMOUS EPITHELIAL CELL,UR FEW Squamous (<= Few); WBC,URINE 0-3 /HPF (0-3)
== END 2022-02-01 15:02 | disposition home or self-care (01) ==
LOC: LAB 15:01
PROVIDERS: ATTEND Nurse Practitioner Family
DX: R10.30 Lower abdominal pain, unspecified (principal); R19.4 Change in bowel habit; Z87.19 Personal history of other diseases of the digestive system
CPT/HCPCS: 36415; 80053; 81001; 85025; 87086

== ENCOUNTER 2022-02-02 08:00 | Outpatient (CLI) | payer MEDICARE ==
[2022-02-02 17:15] LABS: FECAL OCCULT BLOOD (FIT) NEGATIVE (NEGATIVE)
== END 2022-02-02 23:59 | disposition home or self-care (01) ==
LOC: LAB 08:00
PROVIDERS: ATTEND Nurse Practitioner Family
DX: R10.30 Lower abdominal pain, unspecified (principal); R19.4 Change in bowel habit; Z87.19 Personal history of other diseases of the digestive system
CPT/HCPCS: 82274

== ENCOUNTER 2022-02-09 09:48 | Outpatient (CLI) | payer MEDICARE ==
[2022-02-09] MEDS ORDERED: DIATRIZOATE MEGLU/DIATRIZO SOD 30 ML BOTTLE PO ONE ×2 (09:53→12:22)
[2022-02-09] MEDS ORDERED: iohexoL-300 100 ML VIAL ONE (09:53)
[2022-02-09] MEDS ORDERED: iohexoL-300 100 ML VIAL IVP ONE (12:22)
--- NOTE | 2022-02-09 14:34 | CT Report ---
PROCEDURE: CT abdomen pelvis with contrast INDICATIONS: ABD PAIN CONTRAST: 100ml omni 300 TECHNIQUE: After the administration of contrast, 5 mm thick sections acquired from the diaphragms to the sym physis. 5 mm thick coronal and sagittal reformats were acquired. For radiation dose reduction, the following was used: automated exposure control, adjustment of mA and/or kV according to patient size . COMPARISON: None. FINDINGS: Image quality: Excellent. ABDOMEN: Lung bases: Lung bases are clear. Heart size is normal. Dense coronary artery vascular calcificati on Solid organs: Liver and spleen are normal in size and enhancement. Hepatic fatty infiltration noted . The small nodular enhancement of the right hepatic lobe may reflect small hemangioma. Gallbladder c ontains a solitary calculus without pericholecystic inflammatory change. Biliary system is non dilat ed. Pancreas enhances normally. No adrenal nodules. Left renal scarring. No calculi or hydronephros is. Subcentimeter right renal cyst. Peritoneum and bowel: Bowel loops demonstrate normal wall thickn ess and caliber. No free fluid or air. Nodes and vessels: No retroperitoneal or mesenteric adenopathy by size criteria. Aorta and inferior vena cava are normal in size. Aortic vascular calcification. Sigmoid partial resection and anastomo sis without complication. Several diverticula arise from the descending colon without evidence of div erticulitis. Miscellaneous: No ventral hernias. PELVIS: Genitourinary: Bladder wall thickness is normal. Prostatic brachytherapy seeds noted Miscellaneous: No inguinal hernias or adenopathy. Bones: No suspicious bony lesions. No vertebral body compression fractures. IMPRESSION: 1. No acute findings. No evidence of diverticulitis. 2. Partial sigmoidectomy. Persistent left colon diverticulosis without diverticulitis. 3. Cholelithiasis without cholecystitis. Hepatic fatty infiltration. Reviewed by: Alejo Knox MD on 02/09/2022 1:33 PM [place] Approved by: Alejo Knox MD on 02/09/2022 1:33 PM [facility] Station ID: [id number]
== END 2022-02-09 09:49 | disposition home or self-care (01) ==
LOC: DI 09:48
PROVIDERS: ATTEND Nurse Practitioner Family
DX: K57.30 Diverticulosis of large intestine without perforation or abscess without bleeding (principal); K80.20 Calculus of gallbladder without cholecystitis without obstruction; K76.0 Fatty (change of) liver, not elsewhere classified; Z90.49 Acquired absence of other specified parts of digestive tract
CPT/HCPCS: 74177; Q9963; Q9967

== ENCOUNTER 2022-03-11 14:41 | Outpatient (CLI) | payer MEDICARE ==
[2022-03-11 15:05] VITALS: BP 130/80
--- NOTE | 2022-03-11 15:05 | SLEEP CARE CONSULTATION ---
Information from patient questionnaire entered by Karoline Woody. I have reviewed and concur with the information entered by Karoline Woody. This document represents the service I personally performed and the decisions made by me, Rupert Rocha MD, [facility]. History of Present Illness Service Date and Time: 03/11/2022 1441 Previous diagnosis: Moderate, Obstructive Sleep Apnea-Hypopnea Syndrome, Central Sleep Apnea-Hypopnea Syndrome AHI: 20.3 (in 2010)(52.2 in 2004) Reason for follow up: three month (F/U LAST SEEN 11/2021) Equipment type: BiPAP (RESMED) Equipment obtained from: [employer] Mask style: Full face (Air Touch) Prior sleep studies: Yes Year and Where: 2004 and 2010 - [facility] Sleep Type of Sleep Study: Polysomnography (F/U POLY, 07/02/21 [facility],) HPI additional information: Mr. Chew was diagnosed to have very severe central and obstructive sleep apnea-hypopnea syndrome and was called today for follow up of BiPAP therapy. The patient purchased the device from [employer] and was fitted with a nasal mask. He uses the device nightly and all through the night. The compliance report shows that he uses the device 80 nights out of the past 90 nights, averaging 4.1 hours a night. He complains of the humidifier reservoir drying up in the middle of the night. His humidity is set at 7. He thinks that the pressure of 23/19 cmH2O is comfortable. On the BiPAP therapy he notices improvement in his sleep quality, and that he wakes up feeling fresher in the morning and more awake/alert during the day. His notices no snore at all. [place] Sleepiness Scale score is 8. The average residual AHI is 12.7; and average air leak is 45 L/minute. Sleep Study - Results Type of Sleep Study: Polysomnography (F/U POLY, 07/02/21 [facility],) Prior sleep studies: Yes Year and Where: 2004 and 2010 - [facility] Sleep Subjective Initial [place] Sleepiness Scale score: 8 (in 2004) Current [place] Sleepiness Scale score: 8 (03/11/22) Allergies and Home Medications Drug allergies reviewed: Yes Home medication list reviewed: Yes Allergy and home medication list: Allergies iodine Allergy (Verified 09/08/20 15:48) Unknown latex Allergy (Verified 09/08/20 15:48) Rash Review of Systems Review of systems same as previous: Yes Physical Exam Vital signs obtained and entered by: VIA PHONE Blood Pressure: 130/80 (PER PT ) Height: 5 ft 8 in (PER PT) Weight: 230 lb (PER PT) Body Mass Index: 34.9 BMI Classification: Obese Impression and Plan IMPRESSION: 1. Central and Obstructive Sleep Apnea-Hypopnea Syndrome, severe, with the patient continuing to have slightly [id number] compliance. The current pressure appears comfortable but not quite effective, possibly due to excessive air leak. Overall, he is very satisfied with treatment and plans to continue with it long-term. I will lower the humidity for him so that the reservoir lasts all night. If he can use the BiPAP adequately, he will be eligible for a new machine. PLAN: 1. Lower the BiPAP a little to help with air leak. BiPAP set to 21/16 cm H2O via the modem. 2. Return 2 months for a follow up. Adjust device pressure to (cmH2O): 21/16 Follow up with Sleep Care in: 1-2 months Visit Type: Telehealth Video Video Type: Doximity Time Spent with Patient (minutes): 15 Provider Statement: I spent 100% of the Telehealth Video Call with the patient with greater than 50% spent counseling the patient and coordination of care.
== END 2022-03-11 14:42 | disposition home or self-care (01) ==
LOC: SC 14:41
PROVIDERS: ATTEND Internal Medicine Pulmonary Disease
DX: G47.31 Primary central sleep apnea (principal); G47.33 Obstructive sleep apnea (adult) (pediatric); E66.9 Obesity, unspecified; Z68.34 Body mass index [BMI] 34.0-34.9, adult

== ENCOUNTER 2022-03-21 09:00 | Outpatient (CLI) | payer MEDICARE ==
[2022-03-24 16:08] LABS: GIARDIA LAMBLIA AG EIA Negative (Negative)
[2022-03-27 15:08] LABS: OVA + PARASITE EXAM Final report (.)
== END 2022-03-21 09:01 | disposition home or self-care (01) ==
LOC: LAB.R 09:00
PROVIDERS: ATTEND Nurse Practitioner Family
DX: R10.30 Lower abdominal pain, unspecified (principal); R19.4 Change in bowel habit; Z87.19 Personal history of other diseases of the digestive system
CPT/HCPCS: 87045; 87046; 87177; 87329; 87427; 87493

== ENCOUNTER 2022-03-22 13:34 | Outpatient (CLI) | payer MEDICARE ==
[2022-03-22 13:58] LABS: BASOPHILS # (AUTO) 0.1 10^3/uL (0.0-0.1); BASOPHILS % (AUTO) 0.6 %; EOSINOPHILS # (AUTO) 0.2 10^3/uL (0.0-0.7); EOSINOPHILS % (AUTO) 1.8 %; HCT - HEMATOCRIT 47.1 % (42.0-52.0); HGB - HEMOGLOBIN 15.4 g/dL (14.0-18.0); LYMPHOCYTES # (AUTO) 2.1 10^3/uL (1.5-3.5); LYMPHOCYTES % (AUTO) 19.6 %; MEAN CORPUSCULAR HEMOGLOBIN 30.9 pg (27.0-31.0); MEAN CORPUSCULAR HGB CONC 32.7 g/dL (32.0-36.0); MEAN CORPUSCULAR VOLUME 94.6 fL (80.0-94.0); MEAN PLATELET VOLUME 9.3 fL (7.4-11.4); MONOCYTES # (AUTO) 0.9 10^3/uL (0.0-1.0); MONOCYTES % (AUTO) 8.6 %; NEUTROPHILS # (AUTO) 7.4 10^3/uL (1.5-6.6); PLT - PLATELET COUNT 208 10^3/uL (130-450); RED BLOOD COUNT 4.98 10^6/uL (4.70-6.10); RED CELL DISTRIBUTION WIDTH 13.6 % (12.0-15.0); WHITE BLOOD COUNT 10.7 x10^3/uL (4.8-10.8)
== END 2022-03-22 13:35 | disposition home or self-care (01) ==
LOC: LAB 13:34
PROVIDERS: ATTEND Nurse Practitioner Family
DX: R10.30 Lower abdominal pain, unspecified (principal); R19.4 Change in bowel habit; Z87.19 Personal history of other diseases of the digestive system
CPT/HCPCS: 36415; 85025

== ENCOUNTER 2022-04-04 11:04 | Emergency (ER) | payer MEDICARE ==
[2022-04-04 11:39] LABS: BASOPHILS # (AUTO) 0.1 10^3/uL (0.0-0.1); BASOPHILS % (AUTO) 0.5 %; EOSINOPHILS # (AUTO) 0.2 10^3/uL (0.0-0.7); EOSINOPHILS % (AUTO) 1.9 %; HCT - HEMATOCRIT 50.2 % (42.0-52.0); HGB - HEMOGLOBIN 16.3 g/dL (14.0-18.0); MEAN CORPUSCULAR HEMOGLOBIN 30.4 pg (27.0-31.0); MEAN CORPUSCULAR HGB CONC 32.5 g/dL (32.0-36.0); MEAN CORPUSCULAR VOLUME 93.7 fL (80.0-94.0); MEAN PLATELET VOLUME 9.1 fL (7.4-11.4); MONOCYTES # (AUTO) 0.8 10^3/uL (0.0-1.0); MONOCYTES % (AUTO) 8.1 %; NEUTROPHILS # (AUTO) 6.8 10^3/uL (1.5-6.6); NEUTROPHILS % (AUTO) 69.1 %; PLT - PLATELET COUNT 193 10^3/uL (130-450); RED BLOOD COUNT 5.36 10^6/uL (4.70-6.10); RED CELL DISTRIBUTION WIDTH 13.3 % (12.0-15.0); WHITE BLOOD COUNT 9.9 x10^3/uL (4.8-10.8)
[2022-04-04 11:51] LABS: ALBUMIN 4.3 g/dL (3.2-5.5); ALBUMIN/GLOBULIN RATIO 1.3 (1.0-2.2); BILIRUBIN,TOTAL 1.2 mg/dL (0.2-1.0); CALCIUM 9.5 mg/dL (8.5-10.3); CREATININE 1.3 mg/dL (0.6-1.2); TOTAL PROTEIN 7.6 g/dL (6.7-8.2)
[2022-04-04] MEDS ORDERED: iohexoL-300 100 ML VIAL ONE (12:05)
--- NOTE | 2022-04-04 12:05 | ED Physician Documentation ---
PD HPI ABD PAIN - Stated complaint Stated Complaint: ABD PX - Chief complaint Chief Complaint: Abd Pain - History obtained from History obtained from: Patient - Additional information Additional information: 77-year-old gentleman with history of psychiatric illness, PE on Coumadin, sigmoidectomy for diverticulitis in 2009, prostate cancer with radiation presents with 2 months of lower abdominal pain. It is a constant pain in both lower quadrants that is slowly worsening. More acutely over the last 2 weeks he gets a intermittent pain on the left side. He notes intermittent constipation versus loose stools and has been taking MiraLAX and stool softeners to even that out. There is no relationship with eating. No fevers. Review of Systems Constitutional: denies: Fever, Chills Cardiac: denies: Chest pain / pressure, Palpitations Respiratory: denies: Dyspnea, Cough PD PAST MEDICAL HISTORY - Past Medical History Cardiovascular: None, Pulmonary embolism Respiratory: Sleep apnea, CPAP use GI: None : None, Other HEENT: None Psych: Bipolar disorder Musculoskeletal: Osteoarthritis, Chronic back pain Derm: None - Past Surgical History Past Surgical History: Yes General: Colonoscopy, EGD, Other Ortho: Rotator cuff repair, Other HEENT: Tonsil/Adenoidectomy - Present Medications Home Medications: Ambulatory Orders Medication Instructions Recorded Confirmed lamoTRIgine [LaMICtal] 100 mg PO DAILY 01/13/13 09/08/20 Buspirone HCl 30 mg PO BID 07/20/19 09/08/20 [place] Carbonate 150 mg PO DAILY 07/20/19 09/08/20 Warfarin [Coumadin] 5 mg PO DAILY 07/20/19 09/08/20 buPROPion HCL [Bupropion HCl Sr] 150 mg PO DAILY 07/20/19 09/08/20 Dicyclomine [Bentyl] 1 - 2 tab PO QID PRN #60 cap 04/04/22 [place] Carbonate 300 mg PO QPM 04/04/22 04/04/22 Naltrexone HCl 4.5 mg PO QPM 04/04/22 04/04/22 lamoTRIgine [LaMICtal] 50 mg PO QPM 04/04/22 04/04/22 - Allergies Allergies/Adverse Reactions: Allergies Allergy/AdvReac Type Severity Reaction Status Date / Time iodine Allergy Unknown Verified 09/08/20 15:48 latex Allergy Rash Verified 09/08/20 15:48 - Social History Does the pt smoke?: No Smoking Status: Never smoker Does the pt drink ETOH?: No Does the pt have substance abuse?: No - Immunizations Immunizations are current?: Yes - POLST Patient has POLST: No POLST Status: Full Code PD ED PE NORMAL - Vitals Vital signs reviewed: Yes - General General: Alert and oriented X 3, No acute distress - Neck Neck: Supple, no meningeal sign, No bony TTP - Cardiac Cardiac: RRR, No murmur - Respiratory Respiratory: No respiratory distress, Clear bilaterally - Abdomen Abdomen: Other (Hyperactive bowel sounds with mild left lower quadrant tenderness but no surgical signs) - Back Back: No CVA TTP, No spinal TTP - Derm Derm: Normal color, Warm and dry - Extremities Extremities: No edema, No calf tenderness / cord - Neuro Neuro: Alert and oriented X 3, Normal speech Results - Vitals Vitals: Vital Signs - 24 hr 04/04/22 04/04/22 04/04/22 11:08 12:54 14:15 Temperature 36.8 C Heart Rate 82 69 59 L Respiratory 18 16 16 Rate Blood Pressure 138/98 H 135/83 H 138/72 H O2 Saturation 98 96 97 Oxygen O2 Source Room air - Labs Labs: Laboratory Tests 04/04/22 04/04/22 04/04/22 11:32 11:32 11:32 WBC 9.9 RBC 5.36 Hgb 16.3 Hct 50.2 MCV 93.7 MCH 30.4 MCHC 32.5 RDW 13.3 Plt Count 193 MPV 9.1 Neut # (Auto) 6.8 H Lymph # (Auto) 2.0 [place] # (Auto) 0.8 Eos # (Auto) 0.2 Baso # (Auto) 0.1 Absolute Nucleated RBC 0.00 Nucleated RBC % 0.0 PT 24.9 H INR 2.3 H Sodium 137 Potassium 4.0 Chloride 102 Carbon Dioxide 27 Anion Gap 8.0 BUN 15 Creatinine 1.3 H Estimated GFR (MDRD) 54 L Glucose 131 H Calcium 9.5 Total Bilirubin 1.2 H AST 21 ALT 28 Alkaline Phosphatase 69 Total Protein 7.6 Albumin 4.3 Globulin 3.3 Albumin/Globulin Ratio 1.3 Lipase 37 Urine Color Urine Clarity Urine pH Ur Specific [place] Urine Protein Urine Glucose (UA) Urine Ketones Urine Occult Blood Urine Nitrite Urine Bilirubin Urine Urobilinogen Ur Leukocyte Esterase Ur Microscopic Review Urine Culture Comments Last Dose Date Last Dose Time [place] 04/04/22 04/04/22 11:52 13:04 WBC RBC Hgb Hct MCV MCH MCHC RDW Plt Count MPV Neut # (Auto) Lymph # (Auto) [place] # (Auto) Eos # (Auto) Baso # (Auto) Absolute Nucleated RBC Nucleated RBC % PT INR Sodium Potassium Chloride Carbon Dioxide Anion Gap BUN Creatinine Estimated GFR (MDRD) Glucose Calcium Total Bilirubin AST ALT Alkaline Phosphatase Total Protein Albumin Globulin Albumin/Globulin Ratio Lipase Urine Color YELLOW Urine Clarity CLEAR Urine pH 7.0 Ur Specific [place] 1.010 Urine Protein NEGATIVE Urine Glucose (UA) NEGATIVE Urine Ketones NEGATIVE Urine Occult Blood NEGATIVE Urine Nitrite NEGATIVE Urine Bilirubin NEGATIVE Urine Urobilinogen 0.2 (NORMAL) Ur Leukocyte Esterase NEGATIVE Ur Microscopic Review NOT INDICATED Urine Culture Comments NOT INDICATED Last Dose Date UNKNOWN Last Dose Time UNKNOWN [place] 0.45 - Rads (name of study) CT of the abdomen pelvis with IV contrast demonstrates cholelithiasis and diverticulosis without diverticulitis. Radiology: Final report received, EMP read indepedently PD Medical Decision Making - ED course ED course: 77-year-old gentleman with subacute lower abdominal pain. He has a history of sigmoidectomy and diverticulosis. Had a CT 2 months ago without pertinent positive findings but given the timeframe and age this was repeated today and without significant change. It is reasonable for him to follow-up with gastroenterology as he plans, but given the alternating constipation and diarrhea as well as lack of overt objective findings, may well be IBS and will trial dicyclomine in the interim. Departure - Departure Disposition: 01 Home, Self Care Clinical Impression: Abdominal pain Qualifiers: Abdominal location: lower abdomen, unspecified Qualified Code(s): R10.30 - Lower abdominal pain, unspecified Condition: Good Record reviewed to determine appropriate education?: Yes Instructions: ED Abdominal Pain Unkn Cause Male Prescriptions: Dicyclomine [Bentyl] 1 - 2 tab PO QID PRN #60 cap PRN Reason: Abdominal Pain Comments: As discussed, I suspect you have irritable bowel syndrome based on your symptoms and persistent lack of positive findings other than diverticulosis and gallstones. The diverticulosis might be bothering you but generally it does not cause much pain without findings of diverticulitis. For your reference, your INR today is 2.3. The remainder of your labs are unremarkable. We are trialing an antispasmodic agent known as Bentyl or dicyclomine pending follow-up with the verifying machine operator. Return for new or worsening symptoms. Discharge Date/Time: 04/04/22 14:15
[2022-04-04] MEDS ORDERED: iohexoL-300 100 ML VIAL IVP ONE (12:24)
[2022-04-04 12:30] LABS: INR 2.3 (0.8-1.2); PT - PROTHROMBIN TIME 24.9 secs (9.9-12.6)
[2022-04-04 12:51] LABS: LITHIUM 0.45 mmol/L
[2022-04-04 13:12] LABS: BILIRUBIN,URINE NEGATIVE (NEGATIVE); GLUCOSE, URINE (UA) NEGATIVE (NEGATIVE); KETONES,URINE (UA) NEGATIVE (NEGATIVE); LEUKOCYTE ESTERASE, URINE NEGATIVE (NEGATIVE); NITRITE,URINE NEGATIVE (NEGATIVE); OCCULT BLOOD,URINE NEGATIVE (NEGATIVE); PROTEIN,URINE NEGATIVE (NEGATIVE); UROBILINOGEN,URINE 0.2 (NORMAL) E.U./dL (NORMAL)
[2022-04-04 13:16] LABS: CLARITY,URINE CLEAR (CLEAR)
[2022-04-04] MEDS ORDERED: ACETAMINOPHEN 500 MG TABLET PO STA (13:19)
--- NOTE | 2022-04-04 14:02 | CT Report ---
PROCEDURE: ABDOMEN/PELVIS W INDICATIONS: IV only low abd pain CONTRAST: 100ml Omnipaque 300 TECHNIQUE: After the administration of IV contrast, 5 mm thick sections acquired from the diaphragms to the symp hysis. 5 mm thick coronal and sagittal reformats were acquired. For radiation dose reduction, the f ollowing was used: automated exposure control, adjustment of mA and/or kV according to patient size. COMPARISON: 02/09/2022 FINDINGS: Image quality: Excellent. ABDOMEN: Lung bases: Mild lingular atelectasis. Heart size is normal. Heavy coronary artery calcification drea ginette coronary stent. Solid organs: Liver and spleen are normal in size and enhancement. Tiny chronic flash fill hemangiom a in the right lateral hepatic lobe. There is a stone dependently in the gallbladder. No gallbladder wall thickening. No biliary dilatation. Normal pancreas, spleen, adrenal glands, and kidneys. Peritoneum and bowel: There is a staple line of a colorectal anastomosis. Moderate diverticulosis is present in the descending and remaining proximal sigmoid colon. Mild long segment chronic colon wall thickening. No acute pericolonic inflammation. Stomach and small bowel loops are otherwise normal, d ecompressed. There is a normal appendix. . No free fluid or air. Nodes and vessels: No retroperitoneal or mesenteric adenopathy by size criteria. Aorta and inferior vena cava are normal in size. Miscellaneous: No ventral hernias. PELVIS: Genitourinary: Bladder wall thickness is normal. Brachytherapy seeds present in the prostate gland. Miscellaneous: No inguinal hernias or adenopathy. Bones: No suspicious bony lesions. Degenerative disc disease at L4-5 and in the lower thoracic spine . No vertebral body compression fractures. IMPRESSION: 1. Chronic distal colonic diverticulosis without acute diverticulitis. 2. Cholelithiasis without acute cholecystitis. Reviewed by: Leydi Garcias MD on 04/04/2022 2:01 PM PST Approved by: Leydi Garcias MD on 04/04/2022 2:01 PM PST Station ID: [id number]
[2022-04-04 14:25] VITALS: BP 138/72
== END 2022-04-04 14:15 | disposition home or self-care (01) ==
LOC: ED 11:04
DX: R10.30 Lower abdominal pain, unspecified (principal); R19.7 Diarrhea, unspecified; K59.00 Constipation, unspecified; K80.20 Calculus of gallbladder without cholecystitis without obstruction; K57.30 Diverticulosis of large intestine without perforation or abscess without bleeding
CPT/HCPCS: 36415; 74177; 80053; 80178; 81003; 83690; 85025; 85610; 99283; 99284; A9270; Q9967; 81001; 87086

== ENCOUNTER 2022-04-29 12:47 | Outpatient (CLI) | payer MEDICARE ==
[2022-04-29 19:23] VITALS: BP 136/84
--- NOTE | 2022-04-29 19:23 | SLEEP CARE CONSULTATION ---
Information from patient questionnaire entered by Garrett Woody. I have reviewed and concur with the information entered by Garrett Woody. This document represents the service I personally performed and the decisions made by me, Rupert Rocha MD, [facility]. History of Present Illness Service Date and Time: 04/29/2022 1247 Previous diagnosis: Moderate, Obstructive Sleep Apnea-Hypopnea Syndrome, Central Sleep Apnea-Hypopnea Syndrome AHI: 20.3 (in 2010)(52.2 in 2004) Reason for follow up: other (SIX WEEK F/U ) Equipment type: BiPAP (RESMED) Equipment obtained from: [employer] Mask style: Full face (Air Touch) Prior sleep studies: Yes Year and Where: 2004 and 2010 - [facility] Sleep Type of Sleep Study: Polysomnography (F/U POLY, 07/02/21 [facility],) HPI additional information: Mr. Chew was diagnosed to have very severe central and obstructive sleep apnea-hypopnea syndrome and was called today for follow up of BiPAP therapy. The patient purchased the device from [employer] and was fitted with a nasal mask. He uses the device nightly and all through the night. The compliance report shows that he uses the device 30 nights out of the past 30 nights, averaging 4.3 hours a night. He complains of the humidifier reservoir drying up in the middle of the night. His humidity is set at 7. He thinks that the pressure of 21/16 (lowered from 23/19 for excessive mask leak) cmH2O is comfortable. On the BiPAP therapy he notices improvement in his sleep quality, and that he wakes up feeling fresher in the morning and more awake/alert during the day. His notices no snore at all. [place] Sleepiness Scale score is 18. The average residual AHI is 13,4 (was 12.7); and average air leak is 46 (was 45) L/minute. Manual CPAP/BiPAP titration study in 2019 showed BiPAP at 25/21 to be adequate. Full face mask Sleep Study - Results Type of Sleep Study: Polysomnography (F/U POLY, 07/02/21 [facility],) Prior sleep studies: Yes Year and Where: 2004 and 2010 - [facility] Sleep Subjective Initial [place] Sleepiness Scale score: 8 (in 2004) Current [place] Sleepiness Scale score: 18 (04/29/2022) Allergies and Home Medications Drug allergies reviewed: Yes Home medication list reviewed: Yes Allergy and home medication list: Allergies iodine Allergy (Verified 09/08/20 15:48) Unknown latex Allergy (Verified 09/08/20 15:48) Rash Review of Systems Review of systems same as previous: Yes Physical Exam Vital signs obtained and entered by: GARRETT Acosta MA Blood Pressure: 136/84 (LEFT ARM) Cuff size: regular Heart Rate: 75 O2 Saturation: 98 Height: 5 ft 8 in (PER PT) Weight: 234 lb 6.4 oz Body Mass Index: 35.6 BMI Classification: Obese Impression and Plan IMPRESSION: 1. Central and Obstructive Sleep Apnea-Hypopnea Syndrome, severe, with the patient continuing to have good compliance. The current pressure appears comfortable but not quite effective, possibly due to excessive air leak. Lowering the pressure did not help but the patient is more comfortable. Because the BiPAP is now older than the useful life of 5 years, I will order the patient a new one and set it at 21/16 cmH2O. PLAN: 1. Prescription made for a new BiPAP, heated humidifier, and related supplies. 2. Return for follow up after one month of using the CPAP. Counseling Topics: Weight control Prescriptions: BiPAP Follow up with Sleep Care in: 1-2 months Visit Type: In Office Time Spent with Patient (minutes): 15 Provider Statement: I spent 100% of the Face to Face Visit with the patient with greater than 50% spent counseling the patient and coordination of care.
== END 2022-04-29 12:48 | disposition home or self-care (01) ==
LOC: SC 12:47
PROVIDERS: ATTEND Internal Medicine Pulmonary Disease
DX: G47.33 Obstructive sleep apnea (adult) (pediatric) (principal); E66.9 Obesity, unspecified; Z68.35 Body mass index [BMI] 35.0-35.9, adult
CPT/HCPCS: 99212; G0463

== ENCOUNTER 2022-05-28 16:44 | Outpatient (CLI) | payer MEDICARE | END 2022-05-28 16:45 | disposition home or self-care (01) | LOC: LAB 16:44 | PROVIDERS: ATTEND Nurse Practitioner Family | DX: Z79.01 Long term (current) use of anticoagulants (principal); I26.99 Other pulmonary embolism without acute cor pulmonale | CPT/HCPCS: 36416; 85610 ==

== ENCOUNTER 2022-06-20 14:53 | Outpatient (CLI) | payer MEDICARE ==
--- NOTE | 2022-06-20 19:11 | CT Report ---
PROCEDURE: CHEST WO INDICATIONS: PULMONARY NODULE TECHNIQUE: Noncontrast 1mm axial images were acquired from the pulmonary apices to the posterior costophrenic an gles. Axial 5 mm soft tissue kernel reconstructions were performed as well as 8 mm axial MIP and cor onal and sagittal 5 mm reformations. For radiation dose reduction, the following was used: automate d exposure control, adjustment of mA and/or kV according to patient size. COMPARISON: CT angiogram of the chest dated 04/23/2018 FINDINGS: Image quality: Excellent. Lungs and pleura: No pleural effusions. No pneumothorax. Pulmonary nodules are as follows: 1. Right perifissural nodule, image 141/4, 3 mm, unchanged compared to the previous study reference p revious image 49/5. 2. 2 mm right lower lobe pulmonary nodule, image 181/4, not definitely seen on the previous study. 3. Unchanged 3 mm pulmonary nodule, right middle lobe, image 167/4. Mediastinum: Heart size is normal. No pericardial effusions. Severe coronary artery calcifications. N o mediastinal adenopathy by size criteria. No large vessel abnormality. Chest wall and lower neck: Thyroid is unremarkable. No axillary or supraclavicular adenopathy by size . Bones: No aggressive osseous abnormality. Upper Abdomen: Unremarkable. IMPRESSION: 1. 3 pulmonary nodules are identified. The 2 larger 1's are stable, and are benign. A third nodule is tiny, measuring 2 mm. 2. Severe coronary artery calcifications. Comment: As per the Fleischner Society criteria,If the patient is at low risk for lung cancer, no fur ther follow-up is required. If the patient has risk factors for lung cancer, repeat evaluation with a low-dose noncontrast chest CT may be obtained in 12 months time. If the nodule is stable at that poi nt, no further follow-up is required. CLINICAL RECOMMENDATION STATEMENTS: In patients <35 years with an ITN detected on CT, MRI, or extrathyroidal ultrasound, the Committee re commends further evaluation with dedicated thyroid ultrasound if the nodule is "e1 cm and has no susp icious imaging features, and if the patient has normal life expectancy. In patients "e35 years with an ITN detected on CT, MRI, or extrathyroidal ultrasound, the Committee r ecommends further evaluation with dedicated thyroid ultrasound if the nodule is "e1.5 cm and has no s uspicious imaging features, and if the patient has normal life expectancy. (ACR, 2014) Reviewed by: Bacilio Stewart MD on 06/20/2022 7:10 PM PDT Approved by: Bacilio Stewart MD on 06/20/2022 7:10 PM PDT Station ID: [id number]
== END 2022-06-20 14:54 | disposition home or self-care (01) ==
LOC: DI 14:53
PROVIDERS: ATTEND Nurse Practitioner Family
DX: R91.8 Other nonspecific abnormal finding of lung field (principal); I25.10 Atherosclerotic heart disease of native coronary artery without angina pectoris

== ENCOUNTER 2022-07-31 10:11 | Outpatient (CLI) | payer MEDICARE ==
[2022-07-31 10:39] LABS: INR 2.5 (0.8-1.2); PT - PROTHROMBIN TIME 26.6 secs (9.9-12.6)
[2022-07-31 10:48] LABS: ALBUMIN 4.4 g/dL (3.2-5.5); ALBUMIN/GLOBULIN RATIO 1.5 (1.0-2.2); ALKALINE PHOSPHATASE 56 IU/L (42-121); ALT ALANINE AMINOTRANSFERASE 27 IU/L (10-60); AST ASPARTATE AMINOTRANSFERASE 22 IU/L (10-42); BUN - BLOOD UREA NITROGEN 16 mg/dL (6-20); CALCIUM 9.6 mg/dL (8.5-10.3); CARBON DIOXIDE - CO2 24 mmol/L (21-32); CHLORIDE 109 mmol/L (101-111); CHOL/HDL RATIO 3.6 (<5.0); CHOLESTEROL 183 mg/dL; GFR - MDRD 72 (>89); GLUCOSE 114 mg/dL (70-100); HDL CHOLESTEROL 51 mg/dL; LDL CHOLESTEROL,CALCULATED 115 mg/dL; LDL/HDL RATIO 2.3 (<3.6); POTASSIUM 3.9 mmol/L (3.5-5.0); SODIUM 141 mmol/L (135-145); TOTAL PROTEIN 7.3 g/dL (6.7-8.2); TRIGLYCERIDES 87 mg/dL; VLDL CHOLESTEROL 17 mg/dL
[2022-07-31 10:51] LABS: ESTIMATED AVERAGE GLUCOSE 117 mg/dL (70-100); HEMOGLOBIN A1c% 5.7 % (4.27-6.07)
[2022-07-31 11:22] LABS: LITHIUM 0.55 mmol/L
== END 2022-07-31 10:12 | disposition home or self-care (01) ==
LOC: LAB 10:11
PROVIDERS: ATTEND Nurse Practitioner Family
DX: I26.99 Other pulmonary embolism without acute cor pulmonale (principal); R73.01 Impaired fasting glucose; E66.9 Obesity, unspecified; F31.9 Bipolar disorder, unspecified; Z79.01 Long term (current) use of anticoagulants
CPT/HCPCS: 36415; 80053; 80061; 80178; 83036; 83721; 85610

== ENCOUNTER 2022-08-29 13:10 | Outpatient (CLI) | payer MEDICARE ==
[2022-08-29 13:33] LABS: INR 2.7 (0.8-1.2); PT - PROTHROMBIN TIME 28.6 secs (9.9-12.6)
== END 2022-08-29 13:11 | disposition home or self-care (01) ==
LOC: LAB 13:10
PROVIDERS: ATTEND Nurse Practitioner Family
DX: Z79.01 Long term (current) use of anticoagulants (principal)
CPT/HCPCS: 36415; 85610

== ENCOUNTER 2022-10-04 13:11 | Emergency (ER) | payer MEDICARE ==
[2022-10-04 13:28] VITALS: BP 150/87
--- NOTE | 2022-10-04 13:50 | ED Physician Documentation ---
History of Present Illness - Stated complaint Stated Complaint: R SHLDR INJURY - Chief complaint Chief Complaint: Ext Problem - Additonal information Additional information: 77-year-old male presents emergency department for evaluation of several weeks right-sided neck and shoulder pain. Getting progressively worse. Now causing difficulty when laying in bed at night limiting sleep. No falls or trauma. He does report a history of osteoarthritis for which she has had multiple joint injections within the neck, lumbar region and hips. He has a history of pulmonary embolism and is anticoagulated on warfarin. He has been taking Tylen ol without relief of pain. No fevers. Remote history of right shoulder rotator cuff repair Review of Systems Constitutional: denies: Fever Throat: reports: Reviewed and negative Cardiac: reports: Reviewed and negative : reports: Reviewed and negative Musculoskeletal: reports: Neck pain, Joint pain PD PAST MEDICAL HISTORY - Past Medical History Cardiovascular: None, Pulmonary embolism Respiratory: Sleep apnea, CPAP use GI: None : None, Other HEENT: None Psych: Bipolar disorder Musculoskeletal: Osteoarthritis, Chronic back pain Derm: None - Past Surgical History Past Surgical History: Yes General: Colonoscopy, EGD, Other Ortho: Rotator cuff repair, Other HEENT: Tonsil/Adenoidectomy - Present Medications Home Medications: Ambulatory Orders Medication Instructions Recorded Confirmed lamoTRIgine [LaMICtal] 100 mg PO DAILY 01/13/13 09/08/20 Buspirone HCl 30 mg PO BID 07/20/19 09/08/20 [place] Carbonate 150 mg PO DAILY 07/20/19 09/08/20 Warfarin [Coumadin] 5 mg PO DAILY 07/20/19 09/08/20 buPROPion HCL [Bupropion HCl Sr] 150 mg PO DAILY 07/20/19 09/08/20 Dicyclomine [Bentyl] 1 - 2 tab PO QID PRN #60 cap 04/04/22 [place] Carbonate 300 mg PO QPM 04/04/22 04/04/22 Naltrexone HCl 4.5 mg PO QPM 04/04/22 04/04/22 lamoTRIgine [LaMICtal] 50 mg PO QPM 04/04/22 04/04/22 HYDROcod/ACETAM 5/325 [[place] 5/325] 1 - 2 tablet PO BID PRN #10 tablet 10/04/22 - Allergies Allergies/Adverse Reactions: Allergies Allergy/AdvReac Type Severity Reaction Status Date / Time iodine Allergy Unknown Verified 10/04/22 13:28 latex Allergy Rash Verified 10/04/22 13:28 - Social History Does the pt smoke?: No Smoking Status: Never smoker Does the pt drink ETOH?: No Does the pt have substance abuse?: No - Immunizations Immunizations are current?: Yes - POLST Patient has POLST: No POLST Status: Full Code PD ED PE EXPANDED - General General: Alert, No acute distress - Extremities Extremities: Right shoulder (Full range of motion of the shoulder in all planes. Negative empty can and negative drop arm test. No swelling or redness. Most of the tenderness in the shoulder was elicited with palpation of the body of the trapezius. Again no swelling ecchymosis or rash noted.) Results - Vitals Vitals: Vital Signs - 24 hr 10/04/22 13:25 Temperature 36.5 C Heart Rate 78 Respiratory 18 Rate Blood Pressure 150/87 H O2 Saturation 99 Oxygen O2 Source Room air - Rads (name of study) Right shoulder xr Relevant Findings:: Final report received (Moderate AC osteoarthritis) PD Medical Decision Making - ED course Complexity details: reviewed results, d/w patient ED course: 77-year-old male here with right shoulder pain ongoing now for several weeks. Has longstanding history of osteoarthritis in other joints. On exam no fevers m icromotion tenderness swelling or erythema. I have low suspicion for an infected joint. An x-ray was obtained and as interpreted by the radiologist does show right osteoarthritis. Patient is not a candidate for NSAID medication as he is anticoagulated on Coumadin. I am making the recommendation for him to continue Tylenol and a limited amount of [place] has been sent to the preferred pharmacy. He will follow closely with his PCP on Friday. The usual emergent return precautions for worsening symptoms was discussed. I am prescribing a short course of short-acting opioid pain medication for this patient. I have reviewed the patients PRIMARY CARE PROVIDER and no concerning findings were noted. I have discussed that the opioids are for short term therapy only, and will not be refilled from the ED. Departure - Departure Disposition: 01 Home, Self Care Clinical Impression: Osteoarthritis of right shoulder Qualifiers: Osteoarthritis type: primary Qualified Code(s): M19.011 - Primary osteoarthritis, right shoulder Condition: Stable Record reviewed to determine appropriate education?: Yes Prescriptions: HYDROcod/ACETAM 5/325 [[place] 5/325] 1 - 2 tablet PO BID PRN #10 tablet PRN Reason: Pain Comments: Jeremy you are seen today for some pain in your right shoulder. The x-ray confirms osteoarthritis of the shoulder joint. In general I recommend you continue the Tylenol during the day. Rolling your shoulder on a tennis ball against the wall can help with pain in the trapezius muscle. You can continue to apply lidocaine patches. Please follow closely with your primary care doctor. You may benefit from physical therapy or referral to an orthopedic doctor for longer-term evaluation of the arthritis in your shoulder. I am prescribing a short course of narcotic pain medication for you. These are potentially dangerous and addictive medications that should be used carefully. These medications may constipate you. Take an [id number] stool softener (docusate) twice daily with plenty of water while taking these medications. If you go 24 hours without a bowel movement, take [id number] miralax, per package instructions. Do not drink or drive while taking these medications. If you received narcotic or sedating medications while in the emergency department, do not drive for 24 hours. Store this medication in a safe, secure place and out of reach of children. It is a violation of federal law to give or sell this medication to another person or to use in a manner other than prescribed. The ED will not refill narcotic prescriptions, including prescriptions lost or stolen. To dispose of unwanted medications: 1. [facility] at [address] in [place] has a medication drop box. They accept prescription medications (in pill form) Friday through Friday 9:00 a.m. to 5:00 p.m. 2. The [facility] [place] [employer] accepts prescription medications (in pill form only) for disposal year round. Call for more information. 3. Contact the [facility] for the next [facility] sponsored prescription drug collection event. , [phone], or [phone]; Note that many narcotic pain relievers also contain Tylenol/acetaminophen. Please ensure that your total dose of acetaminophen from all sources does not exceed 3 g (3000 mg) per day.
--- NOTE | 2022-10-04 14:09 | XRAY Report ---
PROCEDURE: Shoulder 3 View RT INDICATIONS: right shoulder pain TECHNIQUE: 3 views of the shoulder were acquired. COMPARISON: None. FINDINGS: Bones: No fractures or dislocations. No suspicious bony lesions. Visualized ribs appear intact . A cromioclavicular joint space narrowing with osteophytosis. Soft tissues: No suspicious soft tissue calcifications. IMPRESSION: Moderate acromioclavicular osteoarthritis. Reviewed by: Ravinder Webb on 10/04/2022 2:08 PM PDT Approved by: Ravinder Webb on 10/04/2022 2:08 PM PDT Station ID: [id number]
== END 2022-10-04 14:33 | disposition home or self-care (01) ==
LOC: ED 13:11
DX: M19.011 Primary osteoarthritis, right shoulder (principal)
CPT/HCPCS: 99283

== ENCOUNTER 2022-11-06 15:04 | Outpatient (CLI) | payer MEDICARE ==
--- NOTE | 2022-11-06 15:46 | XRAY Report ---
PROCEDURE: Knee 3 View RT INDICATIONS: KNEE PAIN TECHNIQUE: 3 views of the right knee(s) were acquired. COMPARISON: X-ray bilateral knees 10/16/2020 FINDINGS: Bones: No fractures or dislocations. No suspicious bony lesions. Tricompartment spurring. Mild to m oderate joint space narrowing in the medial and lateral compartments. Soft tissues: Small knee joint effusion. No suspicious soft tissue calcifications or masses. Faint joint space calcifications may represent chondrocalcinosis. IMPRESSION: No acute osseous abnormalities. Tricompartmental osteoarthritic changes of the knee. Reviewed by: Evin Chisholm MD on 11/06/2022 3:45 PM PDT Approved by: Evin Chisholm MD on 11/06/2022 3:45 PM PDT Station ID: [id number]
== END 2022-11-06 15:05 | disposition home or self-care (01) ==
LOC: DI 15:04
PROVIDERS: ATTEND Registered Nurse
DX: M17.11 Unilateral primary osteoarthritis, right knee (principal)

== ENCOUNTER 2022-11-16 13:48 | Outpatient (CLI) | payer MEDICARE | END 2022-11-16 13:49 | disposition home or self-care (01) | LOC: LAB 13:48 | PROVIDERS: ATTEND Nurse Practitioner Family | DX: Z79.01 Long term (current) use of anticoagulants (principal); I26.99 Other pulmonary embolism without acute cor pulmonale | CPT/HCPCS: 36416; 85610 ==

== ENCOUNTER 2022-11-28 09:28 | Outpatient (CLI) | payer MEDICARE ==
[2022-11-28 10:10] LABS: INR 3.2 (0.8-1.2); PT - PROTHROMBIN TIME 33.5 secs (9.9-12.6)
[2022-11-28 10:23] LABS: LITHIUM 1.01 mmol/L
[2022-11-28 10:24] LABS: THYROID STIMULATING HORMONE 2.09 uIU/mL (0.34-5.60)
[2022-11-28 13:33] LABS: ALBUMIN 4.4 g/dL (3.2-5.5); ALBUMIN/GLOBULIN RATIO 1.7 (1.0-2.2); BILIRUBIN,TOTAL 0.7 mg/dL (0.2-1.0); CALCIUM 10.2 mg/dL (8.5-10.3); POTASSIUM 4.1 mmol/L (3.5-4.5)
== END 2022-11-28 09:29 | disposition home or self-care (01) ==
LOC: LAB 09:28
PROVIDERS: ATTEND Physician Assistant
DX: R41.0 Disorientation, unspecified (principal); Z79.01 Long term (current) use of anticoagulants; I26.99 Other pulmonary embolism without acute cor pulmonale
CPT/HCPCS: 36415; 80053; 80178; 82607; 84425; 84439; 84443; 85610

== ENCOUNTER 2022-12-05 11:40 | Outpatient (CLI) | payer MEDICARE ==
[2022-12-05 12:34] LABS: INR > 10.0 (0.8-1.2)
== END 2022-12-05 11:41 | disposition home or self-care (01) ==
LOC: LAB 11:40
PROVIDERS: ATTEND Nurse Practitioner Family
DX: Z79.01 Long term (current) use of anticoagulants (principal); I26.99 Other pulmonary embolism without acute cor pulmonale
CPT/HCPCS: 36415; 36416; 85610

== ENCOUNTER 2022-12-05 18:55 | Outpatient (CLI) | payer MEDICARE | END 2022-12-05 23:59 | disposition critical access hospital (66) | LOC: EMS 18:55 | DX: S09.90XA Unspecified injury of head, initial encounter (principal); R41.82 Altered mental status, unspecified; R51.9 Headache, unspecified; R03.0 Elevated blood-pressure reading, without diagnosis of hypertension; W18.30XA Fall on same level, unspecified, initial encounter; Y93.01 Activity, walking, marching and hiking; Y92.481 Parking lot as the place of occurrence of the external cause; Z79.01 Long term (current) use of anticoagulants | CPT/HCPCS: A0425; A0429 ==

== ENCOUNTER 2022-12-06 15:56 | Outpatient (CLI) | payer MEDICARE | END 2022-12-06 15:57 | disposition home or self-care (01) | LOC: LAB 15:56 | PROVIDERS: ATTEND Nurse Practitioner Family | DX: Z79.01 Long term (current) use of anticoagulants (principal); I26.99 Other pulmonary embolism without acute cor pulmonale | CPT/HCPCS: 36416; 85610 ==

== ENCOUNTER 2022-12-31 08:00 | Outpatient (CLI) | payer MEDICARE | END 2022-12-31 23:59 | disposition home or self-care (01) | LOC: LAB.WCP 08:00 | PROVIDERS: ATTEND Physician Assistant | DX: Z79.01 Long term (current) use of anticoagulants (principal); I26.99 Other pulmonary embolism without acute cor pulmonale ==

== ENCOUNTER 2023-01-10 08:00 | Outpatient (CLI) | payer MEDICARE ==
--- NOTE | 2023-01-10 12:58 | XRAY Report ---
PROCEDURE: Knee 2 View BILAT INDICATIONS: BILATERAL KNEE PAIN TECHNIQUE: 2 views of the left and right knee(s) were acquired. COMPARISON: X-ray right knee 07/07/2022, bilateral 10/16/2020 FINDINGS: Bones: No fractures or dislocations. No suspicious bony lesions. There is moderate to severe left medial and moderate left lateral as well as moderate left patellofemoral compartment narrowing. Ther e is moderate to severe right lateral as well as moderate right medial and patellofemoral compartment narrowing. Minimal scattered periarticular osteophytes are present. No erosions Soft tissues: Minimal bilateral knee joint effusion. No suspicious soft tissue calcifications or mas ses. IMPRESSION: Tricompartmental arthritic change. Appearances are stable on the right since 2022 and there is a mini mariusz progressive appearance on the left since 2020. Reviewed by: Karen García MD on 01/10/2023 12:56 PM PDT Approved by: Karen García MD on 01/10/2023 12:56 PM PDT Station ID: [id number]
== END 2023-01-10 23:59 | disposition home or self-care (01) ==
LOC: DI.S 08:00
PROVIDERS: ATTEND Physician Assistant
DX: M17.0 Bilateral primary osteoarthritis of knee (principal)

== ENCOUNTER 2023-01-10 08:00 | Outpatient (CLI) | payer MEDICARE | END 2023-01-10 23:59 | disposition home or self-care (01) | LOC: LAB.S 08:00 | PROVIDERS: ATTEND Physician Assistant | DX: L03.317 Cellulitis of buttock (principal) | CPT/HCPCS: 87070; 87077; 87181; 87205 ==

== ENCOUNTER 2023-01-12 20:48 | Outpatient (CLI) | payer MEDICARE | END 2023-01-12 20:49 | disposition left against medical advice (07) | LOC: EMS 20:48 | DX: R53.1 Weakness (principal); R29.6 Repeated falls; Z79.01 Long term (current) use of anticoagulants ==

== ENCOUNTER 2023-01-14 09:48 | Outpatient (CLI) | payer MEDICARE ==
[2023-01-14 11:06] LABS: PT - PROTHROMBIN TIME 93.6 secs (9.9-12.6)
[2023-01-14 11:53] LABS: INR 9.6 (0.8-1.2)
== END 2023-01-14 09:49 | disposition home or self-care (01) ==
LOC: LAB 09:48
PROVIDERS: ATTEND Nurse Practitioner Family
DX: Z79.01 Long term (current) use of anticoagulants (principal); I26.99 Other pulmonary embolism without acute cor pulmonale
CPT/HCPCS: 36415; 36416; 85610

== ENCOUNTER 2023-01-14 11:01 | Emergency (ER) | payer MEDICARE ==
[2023-01-14] MEDS ORDERED: CHERRY SYRUP 10 ML UDC PO ONE (11:42)
[2023-01-14] MEDS ORDERED: PHYTONADIONE 10 MG/ML AMP PO ONE (11:42)
--- NOTE | 2023-01-14 12:06 | ED Physician Documentation ---
History of Present Illness - Stated complaint Stated Complaint: HIGH INR CALL FROM PCP - Chief complaint Chief Complaint: General - Additonal information Additional information: 77-year-old male who presents from his PCP office after being called for an elevated INR. Patient is on Coumadin for prior pulmonary embolus. He has been on this stably for quite some time but did have issues with elevated INR last month for which he needed vitamin K and then again today. He has been on antibiotics for a cellulitis recently likely contributing. His INR was 8 on a fingerstick at the clinic and then 9.6 on lab draw. He has not had any bleed ing, denies epistaxis, blood per rectum, hematuria or other areas of bleeding. He has also had a fairly rapid decline in his mobility over the course of the last 2 weeks. He is fallen 10-12 times over the last several days usually when he tries to get out of his recliner. He states his right knee will give out on him and he will fall or sometimes he gets dizzy. He has hit his head during his fall as, no loss of consciousness and no change in mentation but he has felt somewhat dizzy and nauseous periodically during this time. He is not a fever or chills, no chest pain or difficulty breathing, no abdominal pain nausea vomiting or diarrhea, no dysuria. He does have incomplete voiding though this is not new and he states he was told he had a lot of scar tissue in the urethra from prior radiation for prostate cancer. He does have an appointment with physical therapy for first visit in about a week and a half but family is also hoping that he can get home health set up due to his increasing weakness and recurrent falls. Review of Systems Constitutional: reports: Reviewed and negative Nose: reports: Reviewed and negative Throat: reports: Reviewed and negative Cardiac: reports: Reviewed and negative Respiratory: reports: Reviewed and negative GI: reports: Reviewed and negative : reports: Hesitancy. denies: Dysuria, Frequency, Unable to Void, Incontinent Skin: reports: Abrasion (s) (Several bruises and small abrasions on his arms from prior falls.) Musculoskeletal: reports: Reviewed and negative Neurologic: reports: Generalized weakness, Head injury. denies: Focal weakness, Numbness, Difficulty speaking, Near syncope, Syncope, Seizure, Confused, Altered mental status PD PAST MEDICAL HISTORY - Past Medical History Past Medical History: Yes Cardiovascular: Pulmonary embolism Respiratory: Sleep apnea, CPAP use Endocrine/Autoimmune: None GI: Other : None, Other HEENT: None Psych: Bipolar disorder Musculoskeletal: Osteoarthritis, Chronic back pain Derm: None Other Past Medical History: prostate cancer - Past Surgical History Past Surgical History: Yes General: Bowel surgery, Colonoscopy, EGD, Other Ortho: Rotator cuff repair, Other HEENT: Tonsil/Adenoidectomy - Present Medications Home Medications: Ambulatory Orders Medication Instructions Recorded Confirmed lamoTRIgine [LaMICtal] 100 mg PO DAILY 01/13/13 01/14/23 Buspirone HCl 30 mg PO BID 07/20/19 01/14/23 Warfarin [Coumadin] 5 mg PO DAILY 07/20/19 01/14/23 buPROPion HCL [Bupropion HCl Sr] 150 mg PO DAILY 07/20/19 01/14/23 [place] Carbonate 300 mg PO BID 04/04/22 01/14/23 Naltrexone HCl 4.5 mg PO QPM 04/04/22 04/04/22 lamoTRIgine [LaMICtal] 50 mg PO QPM 04/04/22 01/14/23 SULFAM/TRIM 800/160 Prepack 2 1 tab ORAL BID 01/14/23 01/14/23 [BACTRIM DS 800/160 Prepack 2] - Allergies Allergies/Adverse Reactions: Allergies Allergy/AdvReac Type Severity Reaction Status Date / Time iodine Allergy Unknown Verified 01/14/23 11:09 latex Allergy Rash Verified 01/14/23 11:09 - Social History Does the pt smoke?: No Smoking Status: Never smoker Does the pt drink ETOH?: No Does the pt have substance abuse?: No - Immunizations Immunizations are current?: Yes - POLST Patient has POLST: No POLST Status: Full Code PD ED PE NORMAL - Vitals Vital signs reviewed: Yes - General General: Alert and oriented X 3, No acute distress, Well developed/nourished - HEENT HEENT: Atraumatic, Moist mucous membranes, Pharynx benign - Cardiac Cardiac: RRR, No murmur - Respiratory Respiratory: No respiratory distress, Clear bilaterally - Abdomen Abdomen: Normal bowel sounds, Soft, Non tender, Non distended - Derm Derm: Normal color, Warm and dry, Other (Several bruises and small skin tears on both upper extremities) - Extremities Extremities: No deformity, No tenderness to palpate, Normal ROM s pain, No edema, No calf tenderness / cord - Neuro Neuro: Alert and oriented X 3 (Oriented x3 but occasionally confused, and occasionally repeats questions.), No motor deficit, No sensory deficit, Normal speech Eye Opening: Spontaneous Motor: Obeys Commands Verbal: Oriented GCS Score: 15 - Psych Psych: Normal mood, Normal affect Results - Vitals Vitals: Vital Signs - 24 hr 01/14/23 01/14/23 11:09 11:50 Temperature 36.7 C Heart Rate 71 69 Respiratory 18 20 Rate Blood Pressure 130/77 152/119 H O2 Saturation 98 98 Oxygen O2 Source Room air - Labs Labs: Laboratory Tests 01/14/23 01/14/23 01/14/23 12:12 12:12 12:12 WBC 8.8 RBC 4.42 L Hgb 14.2 Hct 42.4 MCV 95.9 H MCH 32.1 H MCHC 33.5 RDW 13.6 Plt Count 178 MPV 9.1 Neut # (Auto) 6.8 H Lymph # (Auto) 0.5 L [place] # (Auto) 1.2 H Eos # (Auto) 0.2 Baso # (Auto) 0.1 Absolute Nucleated RBC 0.00 Nucleated RBC % 0.0 PT 97.7 H INR > 10.0 H* Sodium 136 Potassium 3.9 Chloride 105 Carbon Dioxide 25 Anion Gap 6.0 BUN 11 Creatinine 1.1 Estimated GFR (MDRD) 65 L Glucose 95 Calcium 10.1 Total Bilirubin 0.5 AST 20 ALT 17 Alkaline Phosphatase 67 Total Protein 6.9 Albumin 4.3 Globulin 2.6 Albumin/Globulin Ratio 1.7 Lipase 158 H - Rads (name of study) No standard instances Relevant Findings:: Final report received PD Medical Decision Making - ED course Complexity details: reviewed old records, reviewed results, re-evaluated patient, considered differential, d/w patient, d/w family ED course: This is a 77-year-old gentleman who presented due to an elevated INR. It was drawn in the clinic and was 9.6. The patient did not have any bleeding and is not planned to have any surgeries imminently. At we therefore gave him 2.5 mg of oral vitamin K and I have asked him to hold his Coumadin tonight. The patient dropped precipitously last time he had an elevated INR and was given 5 mg of vitamin K, therefore I Recommended he only received 2.5 mg today. He will hold his Coumadin tonight and then recheck his INR tomorrow afternoon and he may need to hold an additional dose of Coumadin tomorrow if still elevated but I anticipate that he will come down appropriately in the next 1 to 2 days. I did obtain additional labs as patient has had recurrent falls and decreased mobility over the last couple of weeks. Remainder of his lab work is stable he does have mildly elevated lipase but he does not have any GI symptoms or abdominal pain and I think that this is unlikely to represent any pancreatitis. We did obtain a head CT given his falls recently with elevated INR and this does not show any acute bleeding. He does have chronic microvascular changes as noted above and also seen previously on MRI last month which could be contributing to some of his falls and forgetfulness. I have placed a consult into home health for the patient to receive physical therapy due to his worsening balance and mobility despite having adequate assistive devices including cane and walker at home. The patient and his have been advised to continue close follow-up with PCP as this will likely require ongoing management. I discussed return precautions if new or worsening symptoms or if he developed any bleeding or had another traumatic fall. Departure - Departure Disposition: 01 Home, Self Care Clinical Impression: Supratherapeutic international normalized ratio (INR) Condition: Good Instructions: Falls Risks Prevent, Falls Prevent Exercise Comments: Please do not take your coumadin/warfarin tonight. Repeat your INR tomorrow (afternoon is ok). If you are still elevated tomorrow we will hold the coumadin/warfarin again. You other labs are stable. Your CT scan shows chronic changes in the vessels of the brain but no acute findings. Please continue follow up wtih your primary doctor and I will also place a home health consultation in for you as I think you would greatly benefit from physical therapy. Forms: PCP List
[2023-01-14 12:19] LABS: BASOPHILS # (AUTO) 0.1 10^3/uL (0.0-0.1); BASOPHILS % (AUTO) 0.6 %; EOSINOPHILS # (AUTO) 0.2 10^3/uL (0.0-0.7); EOSINOPHILS % (AUTO) 2.6 %; HCT - HEMATOCRIT 42.4 % (42.0-52.0); HGB - HEMOGLOBIN 14.2 g/dL (14.0-18.0); LYMPHOCYTES # (AUTO) 0.5 10^3/uL (1.5-3.5); LYMPHOCYTES % (AUTO) 6.1 %; MEAN CORPUSCULAR HEMOGLOBIN 32.1 pg (27.0-31.0); MEAN CORPUSCULAR HGB CONC 33.5 g/dL (32.0-36.0); MEAN CORPUSCULAR VOLUME 95.9 fL (80.0-94.0); MEAN PLATELET VOLUME 9.1 fL (7.4-11.4); MONOCYTES # (AUTO) 1.2 10^3/uL (0.0-1.0); MONOCYTES % (AUTO) 13.3 %; NEUTROPHILS # (AUTO) 6.8 10^3/uL (1.5-6.6); NEUTROPHILS % (AUTO) 76.8 %; PLT - PLATELET COUNT 178 10^3/uL (130-450); RED BLOOD COUNT 4.42 10^6/uL (4.70-6.10); RED CELL DISTRIBUTION WIDTH 13.6 % (12.0-15.0); WHITE BLOOD COUNT 8.8 x10^3/uL (4.8-10.8)
[2023-01-14 12:27] LABS: PT - PROTHROMBIN TIME 97.7 secs (9.9-12.6)
[2023-01-14 12:37] LABS: INR > 10.0 (0.8-1.2)
[2023-01-14 12:39] LABS: ALBUMIN 4.3 g/dL (3.2-5.5); ALBUMIN/GLOBULIN RATIO 1.7 (1.0-2.2); BILIRUBIN,TOTAL 0.5 mg/dL (0.2-1.0); CALCIUM 10.1 mg/dL (8.5-10.3); CREATININE 1.1 mg/dL (0.6-1.3); POTASSIUM 3.9 mmol/L (3.5-4.5); TOTAL PROTEIN 6.9 g/dL (6.4-8.9)
--- NOTE | 2023-01-14 14:15 | CT Report ---
PROCEDURE: HEAD WO INDICATIONS: recurrent falls, dizziness, on coumadin TECHNIQUE: Noncontrast 4.5 mm thick angled axial sections acquired from the foramen magnum to the vertex. For r adiation dose reduction, the following was used: automated exposure control, adjustment of mA and/or kV according to patient size. COMPARISON: None. FINDINGS: Image quality: Excellent. CSF spaces: Basal cisterns are patent. No extra-axial fluid collections. Ventricles are normal in size and shape. Brain: No midline shift. No intracranial masses or hemorrhage. There is central and peripheral volu me loss which is greater than expected for patient age. There are deep and periventricular white new er changes throughout. Skull and face: Calvarium and visualized facial bones are intact, without suspicious lesions. Sinuses: Visualized sinuses and mastoids are clear. IMPRESSION: No acute intracranial pathology. Extensive findings likely associated with chronic microvascular ischemic change. Reviewed by: Agata Plunkett MD on 01/14/2023 2:13 PM PDT Approved by: Agata Plunkett MD on 01/14/2023 2:13 PM PDT Station ID: [id number]
[2023-01-14 14:34] VITALS: BP 136/79; O2SAT 100
== END 2023-01-14 14:45 | disposition home or self-care (01) ==
LOC: ED 11:01
DX: R79.1 Abnormal coagulation profile (principal); Z86.711 Personal history of pulmonary embolism; Z79.01 Long term (current) use of anticoagulants
CPT/HCPCS: 36415; 70450; 80053; 83690; 85025; 85610; 99283; 99284; A9270; 36416

== ENCOUNTER 2023-01-14 23:32 | Outpatient (CLI) | payer MEDICARE | END 2023-01-14 23:59 | disposition EMS.NT | LOC: EMS 23:32 | DX: Z03.89 Encounter for observation for other suspected diseases and conditions ruled out (principal) ==

== ENCOUNTER 2023-01-15 16:51 | Outpatient (CLI) | payer MEDICARE ==
[2023-01-15 17:13] LABS: INR 2.9 (0.8-1.2); PT - PROTHROMBIN TIME 29.3 secs (9.9-12.6)
== END 2023-01-15 16:52 | disposition home or self-care (01) ==
LOC: LAB 16:51
PROVIDERS: ATTEND Nurse Practitioner Family
DX: Z79.01 Long term (current) use of anticoagulants (principal); I26.99 Other pulmonary embolism without acute cor pulmonale
CPT/HCPCS: 36415; 85610

== ENCOUNTER 2023-01-21 08:00 | Outpatient (CLI) | payer MEDICARE ==
--- NOTE | 2023-01-21 15:29 | XRAY Report ---
PROCEDURE: Knee 2 View BILAT INDICATIONS: BILAT KNEE PAIN, BILAT PA TUNNEL, BILAT SUNRISE TECHNIQUE: 2 views of the bilateral knee(s) were acquired. COMPARISON: X-ray knees 01/10/2023 FINDINGS: Bones: No fractures or dislocations. No suspicious bony lesions. Moderate to severe left medial a nd moderate left lateral as well as moderate left patellofemoral compartment narrowing. There is mode rate to severe right lateral as well as moderate right medial patellofemoral compartment narrowing. M inimal scattered periarticular osteophytes are present. No erosions. Mild right and minimal left layton llar subluxation. Soft tissues: No knee joint effusion. No suspicious soft tissue calcifications or masses. IMPRESSION: Tricompartmental arthritic changes as above. Reviewed by: Karen García MD on 01/21/2023 3:27 PM PDT Approved by: Karen García MD on 01/21/2023 3:27 PM PDT Station ID: [id number]
== END 2023-01-21 23:59 | disposition home or self-care (01) ==
LOC: DI.WOS 08:00
PROVIDERS: ATTEND Physician Assistant Surgical
DX: M17.0 Bilateral primary osteoarthritis of knee (principal)

== ENCOUNTER 2023-01-22 19:43 | Outpatient (CLI) | payer MEDICARE | END 2023-01-22 23:59 | disposition critical access hospital (66) | LOC: EMS 19:43 | DX: R10.31 Right lower quadrant pain (principal); R10.32 Left lower quadrant pain; Z74.01 Bed confinement status | CPT/HCPCS: A0425; A0429 ==

== ENCOUNTER 2023-01-22 20:02 | Emergency (ER) | payer MEDICARE ==
[2023-01-22 20:47] LABS: BASOPHILS % (AUTO) 0.2 %; EOSINOPHILS % (AUTO) 0.2 %; HCT - HEMATOCRIT 44.7 % (42.0-52.0); HGB - HEMOGLOBIN 14.9 g/dL (14.0-18.0); LYMPHOCYTES # (AUTO) 1.2 10^3/uL (1.5-3.5); LYMPHOCYTES % (AUTO) 6.2 %; MEAN CORPUSCULAR HEMOGLOBIN 31.4 pg (27.0-31.0); MEAN CORPUSCULAR HGB CONC 33.3 g/dL (32.0-36.0); MEAN CORPUSCULAR VOLUME 94.1 fL (80.0-94.0); MONOCYTES # (AUTO) 1.7 10^3/uL (0.0-1.0); MONOCYTES % (AUTO) 8.5 %; NEUTROPHILS # (AUTO) 16.4 10^3/uL (1.5-6.6); NEUTROPHILS % (AUTO) 84.4 %; PLT - PLATELET COUNT 311 10^3/uL (130-450); RED BLOOD COUNT 4.75 10^6/uL (4.70-6.10); RED CELL DISTRIBUTION WIDTH 13.1 % (12.0-15.0); WHITE BLOOD COUNT 19.5 x10^3/uL (4.8-10.8)
[2023-01-22 20:51] LABS: SLIDE REVIEW? Indicated
[2023-01-22 21:01] LABS: ALBUMIN 3.9 g/dL (3.2-5.5); ALBUMIN/GLOBULIN RATIO 1.2 (1.0-2.2); BILIRUBIN,TOTAL 0.7 mg/dL (0.2-1.0); CALCIUM 10.8 mg/dL (8.5-10.3); CREATININE 0.9 mg/dL (0.6-1.3); POTASSIUM 4.2 mmol/L (3.5-4.5); TOTAL PROTEIN 7.1 g/dL (6.4-8.9)
[2023-01-22] MEDS ORDERED: SODIUM CHLORIDE 0.9% 1,000 ML IV STA (21:01)
--- NOTE | 2023-01-22 21:08 | ED Physician Documentation ---
History of Present Illness - Stated complaint Stated Complaint: AB PX - Chief complaint Chief Complaint: Abd Pain - History obtained from History obtained from: Patient, Family () - Additonal information Additional information: 77-year-old man with past medical history of bipolar, PE on warfarin, diffuse brain atrophy and bilateral lacunar ischemic stroke found on MRI a couple weeks ago, presents with BL LQ pain intermittent over past several days, sharp quality nonradiating. denies n/v/d, fever or back pain. Review of Systems Constitutional: denies: Fever, Chills Cardiac: denies: Chest pain / pressure Respiratory: denies: Dyspnea GI: reports: Abdominal Pain, Other (normal BM today). denies: Nausea, Vomiting, Diarrhea : denies: Dysuria, Frequency, Hesitancy, Hematuria PD PAST MEDICAL HISTORY - Past Medical History Cardiovascular: Pulmonary embolism Respiratory: Sleep apnea, CPAP use Endocrine/Autoimmune: None GI: Other : None, Other HEENT: None Psych: Bipolar disorder Musculoskeletal: Osteoarthritis, Chronic back pain Derm: None - Past Surgical History Past Surgical History: Yes General: Bowel surgery, Colonoscopy, EGD, Other Ortho: Rotator cuff repair, Other HEENT: Tonsil/Adenoidectomy - Present Medications Home Medications: Ambulatory Orders Medication Instructions Recorded Confirmed lamoTRIgine [LaMICtal] 100 mg PO DAILY 01/13/13 01/14/23 Buspirone HCl 30 mg PO BID 07/20/19 01/14/23 Warfarin [Coumadin] 5 mg PO DAILY 07/20/19 01/14/23 buPROPion HCL [Bupropion HCl Sr] 150 mg PO DAILY 07/20/19 01/14/23 [place] Carbonate 300 mg PO BID 04/04/22 01/14/23 Naltrexone HCl 4.5 mg PO QPM 04/04/22 04/04/22 lamoTRIgine [LaMICtal] 50 mg PO QPM 04/04/22 01/14/23 SULFAM/TRIM 800/160 Prepack 2 1 tab ORAL BID 01/14/23 01/14/23 [BACTRIM DS 800/160 Prepack 2] - Allergies Allergies/Adverse Reactions: Allergies Allergy/AdvReac Type Severity Reaction Status Date / Time iodine Allergy Unknown Verified 01/14/23 11:09 latex Allergy Rash Verified 01/14/23 11:09 - Social History Does the pt smoke?: No Smoking Status: Never smoker Does the pt drink ETOH?: No Does the pt have substance abuse?: No - Immunizations Immunizations are current?: Yes - POLST Patient has POLST: No POLST Status: Full Code PD ED PE NORMAL - Vitals Vital signs reviewed: Yes - General General: Alert and oriented X 3, No acute distress, Well developed/nourished - HEENT HEENT: Atraumatic, PERRL, EOMI, Moist mucous membranes, Pharynx benign - Neck Neck: Supple, no meningeal sign - Cardiac Cardiac: RRR - Respiratory Respiratory: No respiratory distress, Clear bilaterally - Abdomen Abdomen: Non tender, Non distended, Other (BL LQ discomfort to palpation) - Back Back: No CVA TTP - Derm Derm: Normal color, Warm and dry - Extremities Extremities: No edema Results - Vitals Vitals: Vital Signs - 24 hr 01/22/23 01/22/23 01/22/23 20:12 22:02 23:04 Temperature 36.7 C 36.5 C Heart Rate 76 70 67 Respiratory 16 17 17 Rate Blood Pressure 131/77 H 145/77 H 143/81 H O2 Saturation 94 98 97 Oxygen O2 Source Room air - Labs Labs: Laboratory Tests 01/22/23 01/22/23 01/22/23 20:40 20:40 20:40 WBC 19.5 H RBC 4.75 Hgb 14.9 Hct 44.7 MCV 94.1 H MCH 31.4 H MCHC 33.3 RDW 13.1 Plt Count 311 MPV 9.0 Neut # (Auto) 16.4 H Lymph # (Auto) 1.2 L [place] # (Auto) 1.7 H Eos # (Auto) 0.0 Baso # (Auto) 0.0 Absolute Nucleated RBC 0.00 Nucleated RBC % 0.0 Manual Slide Review Indicated WBC Morphology NORMAL APPEARANCE Platelet Estimate NORMAL (130-450,000) Platelet Morphology NORMAL APPEARANCE RBC Morph Micro Appear NORMAL APPEARANCE PT 34.9 H INR 3.5 H Sodium 135 Potassium 4.2 Chloride 102 Carbon Dioxide 27 Anion Gap 6.0 BUN 21 H Creatinine 0.9 Estimated GFR (MDRD) 82 L Glucose 162 H Calcium 10.8 H Total Bilirubin 0.7 AST 43 H ALT 61 H Alkaline Phosphatase 89 Total Protein 7.1 Albumin 3.9 Globulin 3.2 Albumin/Globulin Ratio 1.2 Lipase 132 H Urine Color Urine Clarity Urine pH Ur Specific [place] Urine Protein Urine Glucose (UA) Urine Ketones Urine Occult Blood Urine Nitrite Urine Bilirubin Urine Urobilinogen Ur Leukocyte Esterase Ur Microscopic Review Urine Culture Comments Nasal Adenovirus (PCR) Nasal B. parapertussis DNA (PCR) Nasal Coronavir 229E PCR Nasal Coronavir HKU1 PCR Nasal Coronavir NL63 PCR Nasal Coronavir OC43 PCR Nasal Enterovir/Rhinovir PCR Nasal Influenza B PCR Nasal Influenza A PCR Nasal Parainfluen 1 PCR Nasal Parainfluen 2 PCR Nasal Parainfluen 3 PCR Nasal Parainfluen 4 PCR Nasal RSV (PCR) Nasal B.pertussis DNA PCR Nasal C.pneumoniae (PCR) Twin Human Metapneumo PCR Nasal M.pneumoniae (PCR) Nasal SARS-CoV-2 (PCR) 01/22/23 01/22/23 21:34 21:55 WBC RBC Hgb Hct MCV MCH MCHC RDW Plt Count MPV Neut # (Auto) Lymph # (Auto) [place] # (Auto) Eos # (Auto) Baso # (Auto) Absolute Nucleated RBC Nucleated RBC % Manual Slide Review WBC Morphology Platelet Estimate Platelet Morphology RBC Morph Micro Appear PT INR Sodium Potassium Chloride Carbon Dioxide Anion Gap BUN Creatinine Estimated GFR (MDRD) Glucose Calcium Total Bilirubin AST ALT Alkaline Phosphatase Total Protein Albumin Globulin Albumin/Globulin Ratio Lipase Urine Color YELLOW Urine Clarity CLEAR Urine pH 6.5 Ur Specific [place] 1.015 Urine Protein NEGATIVE Urine Glucose (UA) NEGATIVE Urine Ketones NEGATIVE Urine Occult Blood TRACE-INTA Urine Nitrite NEGATIVE Urine Bilirubin NEGATIVE Urine Urobilinogen 0.2 (NORMAL) Ur Leukocyte Esterase NEGATIVE Ur Microscopic Review NOT INDICATED Urine Culture Comments NOT INDICATED Nasal Adenovirus (PCR) NOT DETECTED Nasal B. parapertussis DNA (PCR) NOT DETECTED Nasal Coronavir 229E PCR NOT DETECTED Nasal Coronavir HKU1 PCR NOT DETECTED Nasal Coronavir NL63 PCR NOT DETECTED Nasal Coronavir OC43 PCR NOT DETECTED Nasal Enterovir/Rhinovir PCR NOT DETECTED Nasal Influenza B PCR NOT DETECTED Nasal Influenza A PCR NOT DETECTED Nasal Parainfluen 1 PCR NOT DETECTED Nasal Parainfluen 2 PCR NOT DETECTED Nasal Parainfluen 3 PCR NOT DETECTED Nasal Parainfluen 4 PCR NOT DETECTED Nasal RSV (PCR) NOT DETECTED Nasal B.pertussis DNA PCR NOT DETECTED Nasal C.pneumoniae (PCR) NOT DETECTED Twin Human Metapneumo PCR NOT DETECTED Nasal M.pneumoniae (PCR) NOT DETECTED Nasal SARS-CoV-2 (PCR) NOT DETECTED Procedures - General procedure General procedure: Manual disimpaction of stool with digital rectal exam and sterile lubricant performed without difficulty. Patient tolerated well. EBL 0. Large stool burden evacuated from rectum with brown stool, soft. PD Medical Decision Making - ED course ED course: 77yM presents to the ED with BL LQ pain without associated symptoms. CBC , abdominal panel, u/a and INR ordered in addition to CTAP and 1 L IVF. patient states he is not having pain at present. plan to f/u results. Labs look pretty benign and stable from previous with exception of WBC 19.5 . patient denies fever or other concerning symptoms to explain leukocytosis. Awaiting INR and CT. INR 3.5. advised half dose tomorrow and f/u with Dr. Lopes. CT showed diverticulosis but no diverticulitis, gallstones with no signs of infection. Large stool burden. ELIZABETH performed with manual disimpaction of a large amount of stool. Patient expressed some relief. Stool regimen discussed. Return precautions tigiven. Departure - Departure Disposition: 01 Home, Self Care Clinical Impression: Abdominal pain, Constipation Condition: Stable Instructions: ED Constipation Comments: You were seen in the emergency department for Abdominal pain. Your CT uncovered no emergent issues but you do have a large amount of stool in your abdomen. You should take daily senna/docusate and MiraLAX and consider magnesium citrate as needed to help as a laxative. These are available [id number]. Follow-up with your primary care provider and return to the emergency department for new or worsening symptoms or other concerns. INR 3.5. Follow up with Dr. Caraballo re: reduced dosing tomorrow. Forms: PCP List
[2023-01-22 21:21] LABS: INR 3.5 (0.8-1.2); PT - PROTHROMBIN TIME 34.9 secs (9.9-12.6)
[2023-01-22 21:25] LABS: PLATELET ESTIMATE, MANUAL NORMAL (130-450,000) (NORMAL); PLATELET MORPHOLOGY NORMAL APPEARANCE (NORMAL); RBC MORPHOLOGY (MULTIPLE) NORMAL APPEARANCE (NORMAL); WBC MORPHOLOGY (MULTIPLE) NORMAL APPEARANCE (NORMAL)
[2023-01-22 22:03] LABS: BILIRUBIN,URINE NEGATIVE (NEGATIVE); GLUCOSE, URINE (UA) NEGATIVE (NEGATIVE); KETONES,URINE (UA) NEGATIVE (NEGATIVE); LEUKOCYTE ESTERASE, URINE NEGATIVE (NEGATIVE); NITRITE,URINE NEGATIVE (NEGATIVE); OCCULT BLOOD,URINE TRACE-INTA (NEGATIVE); PH,URINE 6.5 PH (5.0-7.5); PROTEIN,URINE NEGATIVE (NEGATIVE); UROBILINOGEN,URINE 0.2 (NORMAL) E.U./dL (NORMAL)
[2023-01-22 22:04] LABS: CLARITY,URINE CLEAR (CLEAR)
[2023-01-22 22:32] LABS: B. PARAPERTUSSIS- RESP PCR PAN NOT DETECTED; B. PERTUSSIS- RESP PCR PANEL NOT DETECTED; C. PNEUMONIAE- RESP PCR PANEL NOT DETECTED; CORONAVIRUS 229E-RESP PCR NOT DETECTED; CORONAVIRUS HKU1-RESP PCR NOT DETECTED; CORONAVIRUS NL63-RESP PCR NOT DETECTED; CORONAVIRUS OC43-RESP PCR NOT DETECTED; HUMAN METAPNEUMOVIRUS NOT DETECTED; INFLUENZA A- RESP PCR PANEL NOT DETECTED; INFLUENZA B - RESP PCR PANEL NOT DETECTED; M. PNEUMONIAE- RESP PCR PANEL NOT DETECTED; PARAINFLUENZA VIRUS 1 NOT DETECTED; PARAINFLUENZA VIRUS 2 NOT DETECTED; PARAINFLUENZA VIRUS 3 NOT DETECTED; PARAINFLUENZA VIRUS 4 NOT DETECTED; RHINOVIRUS/ENTEROVIRUS NOT DETECTED; RSV- RESP PCR PANEL NOT DETECTED; SARS-CoV-2 -RESP PCR PANEL NOT DETECTED
--- NOTE | 2023-01-22 23:21 | CT Report ---
PROCEDURE: ABDOMEN/PELVIS W INDICATIONS: BL LQ pain CONTRAST: Omni 300 100ml TECHNIQUE: After the administration of IV contrast, 5 mm thick sections acquired from the diaphragms to the symp hysis. 5 mm thick coronal and sagittal reformats were acquired. For radiation dose reduction, the f ollowing was used: automated exposure control, adjustment of mA and/or kV according to patient size. COMPARISON: CT of abdomen and pelvis, 04/04/2022. FINDINGS: Image quality: Excellent. Lung bases and heart: Left basilar scars and atelectasis. Heart size is normal. Severe coronary calc ification. Liver: Normal size. Mild hepatic steatosis. No solid mass. Gallbladder and biliary tree: There is a calcified gallstone. No Freddie wall thickening or pericholec ystic fluid. No biliary dilation. Spleen: No splenomegaly. Pancreas: No pancreatic ductal dilation. Adrenals: No adrenal nodule. Kidneys and ureters: No hydronephrosis. No renal cystic lesion which requires follow up. No solid mas s. Bowel and peritoneum: No bowel distension. No pathologic free fluid. Diverticulosis. No acute diverti culitis. There is a large amount of stool in colon and rectum. Lymph nodes: No central or retroperitoneal adenopathy. Vessels: No infrarenal aortic aneurysm. PELVIS Reproductive organs: Metallic implants in prostate. Bladder: No abnormal wall thickening, accounting for underdistension. Pelvic lymph nodes: No pelvic adenopathy by size criteria. Bones: No aggressive osseous abnormality. Moderate degenerative disc disease and facet arthropathy at L4-L5 and L5-S1. Other: No significant ventral or inguinal hernia. IMPRESSION: 1. There is a large amount of stool in colon and rectum, suggesting fecal impaction. 2. Diverticulosis without diverticulitis. 3. Cholelithiasis. 2. Severe coronary atherosclerosis. Reviewed by: Katharine Moctezuma MD on 01/22/2023 11:20 PM PDT Approved by: Katharine Moctezuma MD on 01/22/2023 11:20 PM PDT Station ID: [id number]
[2023-01-23 01:06] VITALS: BP 138/82; O2SAT 98
[2023-01-23] MEDS ORDERED: iohexoL-300 100 ML VIAL IVP ONE (02:00)
== END 2023-01-23 00:50 | disposition home or self-care (01) ==
LOC: EDUNIT# → ED 20:02
DX: K59.00 Constipation, unspecified (principal); R10.31 Right lower quadrant pain; R10.32 Left lower quadrant pain; Z79.01 Long term (current) use of anticoagulants; Z79.899 Other long term (current) drug therapy; Z20.822 Contact with and (suspected) exposure to COVID-19
CPT/HCPCS: 36415; 51701; 74177; 80053; 81003; 83690; 85025; 85610; 87633; 99283; 99284; Q9967; 81001; 87086

== ENCOUNTER 2023-02-05 08:00 | Outpatient (CLI) | payer MEDICARE ==
[2023-02-05 17:52] LABS: ALBUMIN 4.2 g/dL (3.2-5.5)
[2023-02-05 17:59] LABS: ALBUMIN/GLOBULIN RATIO 1.6 (1.0-2.2); CALCIUM 11.1 mg/dL (8.5-10.3); POTASSIUM 4.1 mmol/L (3.5-4.5); TOTAL PROTEIN 6.9 g/dL (6.4-8.9)
[2023-02-05 18:02] LABS: LITHIUM 0.83 mmol/L
[2023-02-05 18:08] LABS: BASOPHILS # (AUTO) 0.1 10^3/uL (0.0-0.1); BASOPHILS % (AUTO) 0.5 %; EOSINOPHILS # (AUTO) 0.3 10^3/uL (0.0-0.7); EOSINOPHILS % (AUTO) 2.1 %; HGB - HEMOGLOBIN 16.6 g/dL (14.0-18.0); LYMPHOCYTES # (AUTO) 1.8 10^3/uL (1.5-3.5); LYMPHOCYTES % (AUTO) 12.7 %; MEAN CORPUSCULAR HEMOGLOBIN 31.6 pg (27.0-31.0); MEAN CORPUSCULAR HGB CONC 33.2 g/dL (32.0-36.0); MEAN CORPUSCULAR VOLUME 95.2 fL (80.0-94.0); MEAN PLATELET VOLUME 10.4 fL (7.4-11.4); MONOCYTES # (AUTO) 1.4 10^3/uL (0.0-1.0); MONOCYTES % (AUTO) 9.6 %; NEUTROPHILS # (AUTO) 10.8 10^3/uL (1.5-6.6); NEUTROPHILS % (AUTO) 74.5 %; PLT - PLATELET COUNT 220 10^3/uL (130-450); RED BLOOD COUNT 5.25 10^6/uL (4.70-6.10); RED CELL DISTRIBUTION WIDTH 13.2 % (12.0-15.0); WHITE BLOOD COUNT 14.5 x10^3/uL (4.8-10.8)
== END 2023-02-05 23:59 | disposition home or self-care (01) ==
LOC: LAB.R 08:00
PROVIDERS: ATTEND Registered Nurse
DX: I10 Essential (primary) hypertension (principal); I26.99 Other pulmonary embolism without acute cor pulmonale; Z79.899 Other long term (current) drug therapy; R79.9 Abnormal finding of blood chemistry, unspecified; N28.9 Disorder of kidney and ureter, unspecified; Z79.01 Long term (current) use of anticoagulants
CPT/HCPCS: 80053; 80178; 85025

== ENCOUNTER 2023-02-12 14:45 | Outpatient (CLI) | payer MEDICARE ==
[2023-02-12 15:08] LABS: BASOPHILS % (AUTO) 0.3 %; EOSINOPHILS # (AUTO) 0.1 10^3/uL (0.0-0.7); EOSINOPHILS % (AUTO) 0.9 %; HCT - HEMATOCRIT 54.7 % (42.0-52.0); HGB - HEMOGLOBIN 17.8 g/dL (14.0-18.0); LYMPHOCYTES # (AUTO) 1.5 10^3/uL (1.5-3.5); LYMPHOCYTES % (AUTO) 10.8 %; MEAN CORPUSCULAR HEMOGLOBIN 30.8 pg (27.0-31.0); MEAN CORPUSCULAR HGB CONC 32.5 g/dL (32.0-36.0); MEAN CORPUSCULAR VOLUME 94.6 fL (80.0-94.0); MEAN PLATELET VOLUME 10.5 fL (7.4-11.4); MONOCYTES # (AUTO) 1.2 10^3/uL (0.0-1.0); MONOCYTES % (AUTO) 8.7 %; NEUTROPHILS # (AUTO) 10.9 10^3/uL (1.5-6.6); NEUTROPHILS % (AUTO) 78.6 %; PLT - PLATELET COUNT 222 10^3/uL (130-450); RED BLOOD COUNT 5.78 10^6/uL (4.70-6.10); RED CELL DISTRIBUTION WIDTH 13.3 % (12.0-15.0); WHITE BLOOD COUNT 13.9 x10^3/uL (4.8-10.8)
[2023-02-12 15:26] LABS: ALBUMIN 4.5 g/dL (3.2-5.5)
[2023-02-12 16:00] LABS: ALBUMIN/GLOBULIN RATIO 1.8 (1.0-2.2); BILIRUBIN,TOTAL 1.7 mg/dL (0.2-1.0); CALCIUM 12.3 mg/dL (8.5-10.3); CREATININE 1.3 mg/dL (0.6-1.3); POTASSIUM 4.5 mmol/L (3.5-4.5)
== END 2023-02-12 14:46 | disposition home or self-care (01) ==
LOC: LAB.R 14:45
PROVIDERS: ATTEND Registered Nurse
DX: I12.9 Hypertensive chronic kidney disease with stage 1 through stage 4 chronic kidney disease, or unspecified chronic kidney disease (principal); N18.9 Chronic kidney disease, unspecified; M62.59 Muscle wasting and atrophy, not elsewhere classified, multiple sites; N40.1 Benign prostatic hyperplasia with lower urinary tract symptoms; N39.0 Urinary tract infection, site not specified
CPT/HCPCS: 80053; 81001; 85025; 87086

== ENCOUNTER 2023-02-13 13:17 | Outpatient (CLI) | payer MEDICARE | END 2023-02-13 13:18 | disposition critical access hospital (66) | LOC: EMS 13:17 | DX: R79.89 Other specified abnormal findings of blood chemistry (principal); R53.83 Other fatigue | CPT/HCPCS: A0425; A0429 ==

== ENCOUNTER 2023-02-13 13:51 | Emergency (ER) | payer MEDICARE ==
--- NOTE | 2023-02-13 14:10 | ED Physician Documentation ---
PD HPI ALTERED MENTAL STATUS - Stated complaint Stated Complaint: ABNORMAL LABS - Chief complaint Chief Complaint: General - History obtained from History obtained from: Patient, Family, EMS - History of Present Illness Timing - onset: How many months ago (Per report from the medics as they conveyed information from [facility] caregivers, the patient has been having poor intake. Generally weaker and more confused over the last few months with rapid decline according to the patient's son who is here. Blood test done yesterday showed a high calcium level) Timing - details: Gradual onset, Still present Quality / character: Less responsive, Confused, Other (general weakness) Associated symptoms: No: Fever, Dyspnea, Cough, NVD Contributing factors: Known dementia (some level of dementia with prior CVAs and general atrophy of brain.), Other (The patient has been having general decline in weakness confusion and conversation quite dramatically in the last 2 to 3 months over baseline. Poor oral intake.) Basline status: Disoriented, Wheelchair (just in the past month or so.) Similar symptoms before: No diagnosis (unknwon reason fro recent significant decline per son. PCP and spouse apparently considering/likely hospice.) Recently seen: Other (The patient has had MRI of the brain 2 months ago with any new acute findings. Prior small infarcts and general brain atrophy were noted. Basic blood test have been done recently. His lithium level was done on 01 26 in the therapeutic range. Blood test done just yesterday high Calcium.) Review of Systems Unable to obtain: Confused, Other (from [facility] caregivers and family.) Constitutional: denies: Fever Cardiac: denies: Chest pain / pressure Respiratory: denies: Dyspnea, Cough GI: denies: Abdominal Pain, Vomiting, Diarrhea Neurologic: reports: Generalized weakness, Other (poor oral intake.) PD PAST MEDICAL HISTORY - Past Medical History Past Medical History: Yes Cardiovascular: Pulmonary embolism Respiratory: Sleep apnea, CPAP use Neuro: Other Endocrine/Autoimmune: None GI: Other : None, Other HEENT: None Psych: Bipolar disorder Musculoskeletal: Osteoarthritis, Chronic back pain Derm: None - Past Surgical History Past Surgical History: Yes General: Bowel surgery, Colonoscopy, EGD, Other Ortho: Rotator cuff repair, Other HEENT: Tonsil/Adenoidectomy - Present Medications Home Medications: Ambulatory Orders Medication Instructions Recorded Confirmed lamoTRIgine [LaMICtal] 100 mg PO DAILY 01/13/13 02/13/23 Buspirone HCl 30 mg PO BID 07/20/19 02/13/23 Warfarin [Coumadin] 5 mg PO DAILY 07/20/19 02/13/23 buPROPion HCL [Bupropion HCl Sr] 150 mg PO DAILY 07/20/19 02/13/23 [place] Carbonate 300 mg PO BID 04/04/22 02/13/23 lamoTRIgine [LaMICtal] 50 mg PO QPM 04/04/22 02/13/23 Calcium/Magnesium/Vit D3/[place] 1 each PO DAILY 02/13/23 02/13/23 [Calcium-Mag Oxide-Vit D3 Sftgl] Nystatin [Mycostatin] 10 ml PO QID 5 Days #200 ml 02/13/23 [place]-3S/Dha/Epa/Fish Oil [Fish 1 each PO DAILY 02/13/23 02/13/23 Oil 1,200 mg Softgel] - Allergies Allergies/Adverse Reactions: Allergies Allergy/AdvReac Type Severity Reaction Status Date / Time iodine Allergy Unknown Verified 02/13/23 13:57 latex Allergy Rash Verified 02/13/23 13:57 - Social History Does the pt smoke?: No Smoking Status: Never smoker Does the pt drink ETOH?: No Does the pt have substance abuse?: No - Immunizations Immunizations are current?: Yes - POLST Patient has POLST: No POLST Status: Full Code PD ED PE NORMAL - Vitals Vital signs reviewed: Yes - General General: Well developed/nourished, Other (dry mucosa) - HEENT HEENT: Other (sluggish responses but ablwe to answer simiple questions. Weak voice. ). No: Moist mucous membranes - Neck Neck: Supple, no meningeal sign, No adenopathy - Cardiac Cardiac: RRR, No murmur - Respiratory Respiratory: Clear bilaterally - Abdomen Abdomen: Soft, Non tender, Non distended. No: Normal bowel sounds (decreased) - Derm Derm: Warm and dry. No: Normal color (somewhat pale) - Extremities Extremities: No edema, No calf tenderness / cord - Neuro Neuro: Other (general weakness without focality.) Results - Vitals Vitals: Vital Signs - 24 hr 02/13/23 02/13/23 02/13/23 13:57 16:11 18:00 Temperature 36.5 C Heart Rate 84 67 77 Respiratory 22 20 18 Rate Blood Pressure 160/90 H 148/115 H 147/107 H O2 Saturation 97 97 99 Oxygen O2 Source Room air - Labs Labs: Laboratory Tests 02/13/23 02/13/23 02/13/23 15:00 15:16 16:02 WBC 16.8 H RBC 5.90 Hgb 18.3 H Hct 57.7 H MCV 97.8 H MCH 31.0 MCHC 31.7 L RDW 13.6 Plt Count 201 MPV 10.7 Neut # (Auto) 13.4 H Lymph # (Auto) 1.8 [place] # (Auto) 1.4 H Eos # (Auto) 0.1 Baso # (Auto) 0.1 Absolute Nucleated RBC 0.00 Nucleated RBC % 0.0 INR (Fingerstick) Sodium 147 H Potassium 3.8 Chloride 115 H Carbon Dioxide 22 Anion Gap 10.0 BUN 26 H Creatinine 1.2 Estimated GFR (MDRD) 59 L Glucose 119 H Calcium 11.3 H Phosphorus 3.0 Magnesium 2.1 Total Bilirubin 2.0 H AST 30 ALT 50 Alkaline Phosphatase 86 Total Protein 6.2 L Albumin 4.0 Globulin 2.2 Albumin/Globulin Ratio 1.8 Lipase 40 Vitamin B12 447 Last Dose Date Not Reportable Last Dose Time Not Reportable [place] 0.76 02/13/23 17:19 WBC RBC Hgb Hct MCV MCH MCHC RDW Plt Count MPV Neut # (Auto) Lymph # (Auto) [place] # (Auto) Eos # (Auto) Baso # (Auto) Absolute Nucleated RBC Nucleated RBC % INR (Fingerstick) 3.2 H Sodium Potassium Chloride Carbon Dioxide Anion Gap BUN Creatinine Estimated GFR (MDRD) Glucose Calcium Phosphorus Magnesium Total Bilirubin AST ALT Alkaline Phosphatase Total Protein Albumin Globulin Albumin/Globulin Ratio Lipase Vitamin B12 Last Dose Date Last Dose Time [place] PD Medical Decision Making - ED course Complexity details: reviewed old records (reviewed lab test results from yesterday and earlier in month, CT abd from month ago without tumors/acute findings, and brain MRI nov 2022 with old infarcts and marked atrophy. No new lesions. ), reviewed results, considered differential, d/w family (son and spouse) Reviewed Lab Results: After the calcium chelator and IV fluids of 1-1/2 L the patient's calcium level is down to 11.3 which is improved. His INR is 3.1. I do see on his medication administration record from [facility] that he is on a daily calcium and magnesium oral supplement. Will discontinue this. His other electrolytes are good. His creatinine was slightly up and is improved on repeat check. He is more alert though still confused. Does appear like some oral thrush and we will treat that. That may be contributing to his decreased oral intake the last several days in particular. ED course: Word from the medics conveyed from [facility] caregivers and the patient's son is here as well. is on the way. Report is that the patient with a history of bipolar disorder and prior strokes and some level of dementia with a reasonably rapid progression/regression of function over the past 2 to 3 months where he has had poor cognitive interaction and inability to walk. He had an MRI of the brain 2 months ago showing prior strokes and cortical atrophy generally. No signs of new strokes or lesions. He has a neurology consult upcoming in February. He has been a resident at [facility] for just the past week. 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 The patient had lab test done yesterday which showed an elevated calcium of 12.3. Creatinine was 1.2 not far from his baseline. Other electrolytes were within normal range. He had had a check of his lithium level earlier in the month about 3 weeks ago. It was in the normal range. The patient reportedly was sent here for hydration as he has had poor intake. Also correction of his calcium. The intention is to return back to [facility]. The EMS reported from [facility] caregivers the primary care and spouse are looking at hospice care. Not sure the onset time for that. The patient does have responses to questions but are fairly simple. He is oriented just to person. He is able to tell me he is not having any pain anywhere. He does not feel short of breath. He does have a very dry mouth and mucosa. Better look at his mouth after some IV fluids where he is a bit more awake and conversant though still confused on short-term memory and disoriented to time and place but able to answer name. Exam of his mouth now does have redness some white exudate on the palate and posterior pharynx consistent with likely thrush. Hopefully this is what is been impairing his desire to take orally the last few days. I gave written instructions with bullet point summaries and signed them as an order for [facility]. Departure - Departure Disposition: 01 Home, Self Care Clinical Impression: Dehydration, Oral thrush, Decreased oral intake, Hypercalcemia Condition: Stable Record reviewed to determine appropriate education?: Yes Prescriptions: Nystatin [Mycostatin] 10 ml PO QID 5 Days #200 ml Comments: Your calcium level was moderately elevated. It is improved with some IV fluids and medication here and is now just mildly elevated. I do see on the medication list that there is a calcium magnesium daily supplement orally. Please discontinue the daily calcium supplement. It does look like you have some oral thrush and that may be hindering your oral intake. We gave a dose of oral antifungal called Diflucan. Will have you take some oral liquid antifungal 4 times daily for the next 5 days. You can use Tylenol 4 times daily if needed for pains and see if that is helpful as well. Encourage frequent fluids. Follow-up with the primary care there. Summary recommendations: 1. Stop the calcium/magnesium daily supplement 2. Nystatin 10 mL antifungal swish and swallow 4 times daily for 5 days 3. Tylenol 650 mg 4 times daily for the next several days for pain 4. Encourage oral fluids 5. Follow-up primary care. Forms: PCP List Discharge Date/Time: 02/13/23 18:24
[2023-02-13] MEDS ORDERED: SODIUM CHLORIDE 0.9% 1,000 ML IV STA ×2 (14:13→15:47)
[2023-02-13 15:21] LABS: BASOPHILS # (AUTO) 0.1 10^3/uL (0.0-0.1); BASOPHILS % (AUTO) 0.4 %; EOSINOPHILS # (AUTO) 0.1 10^3/uL (0.0-0.7); EOSINOPHILS % (AUTO) 0.4 %; HCT - HEMATOCRIT 57.7 % (42.0-52.0); HGB - HEMOGLOBIN 18.3 g/dL (14.0-18.0); LYMPHOCYTES # (AUTO) 1.8 10^3/uL (1.5-3.5); LYMPHOCYTES % (AUTO) 10.5 %; MEAN CORPUSCULAR HGB CONC 31.7 g/dL (32.0-36.0); MEAN CORPUSCULAR VOLUME 97.8 fL (80.0-94.0); MEAN PLATELET VOLUME 10.7 fL (7.4-11.4); MONOCYTES # (AUTO) 1.4 10^3/uL (0.0-1.0); MONOCYTES % (AUTO) 8.2 %; NEUTROPHILS # (AUTO) 13.4 10^3/uL (1.5-6.6); NEUTROPHILS % (AUTO) 79.9 %; PLT - PLATELET COUNT 201 10^3/uL (130-450); RED CELL DISTRIBUTION WIDTH 13.6 % (12.0-15.0); WHITE BLOOD COUNT 16.8 x10^3/uL (4.8-10.8)
[2023-02-13] MEDS ORDERED: ZOLEDRONIC ACID 4 MG/5 ML VIAL IV STA (15:31)
[2023-02-13] MEDS ORDERED: ZOLEDRONIC ACID 4 MG/100 ML 4 MG/100 ML BAG IV STA (15:36)
[2023-02-13 15:40] LABS: LITHIUM 0.76 mmol/L
[2023-02-13 16:20] LABS: ALBUMIN/GLOBULIN RATIO 1.8 (1.0-2.2); CALCIUM 11.3 mg/dL (8.5-10.3); CREATININE 1.2 mg/dL (0.6-1.3); MAGNESIUM 2.1 mg/dL (1.7-2.3); POTASSIUM 3.8 mmol/L (3.5-4.5); TOTAL PROTEIN 6.2 g/dL (6.4-8.9)
[2023-02-13] MEDS ORDERED: FLUCONAZOLE 100 MG TABLET PO STA (17:01)
[2023-02-13] MEDS ORDERED: LIDOCAINE VISCOUS 2% 15 ML ORAL SYRINGE MM STA ×2 (17:01→17:26)
[2023-02-13] MEDS ORDERED: MAG HYDROX/AL HYDROX/SIMETH 30 ML UDC PO STA (17:01)
[2023-02-13] MEDS ORDERED: NYSTATIN 500000 UNITS/5 ML UDC PO STA (17:03)
[2023-02-13 18:24] VITALS: BP 147/107; O2SAT 99
== END 2023-02-13 18:24 | disposition home or self-care (01) ==
LOC: EDUNIT# → ED 13:51
DX: E83.52 Hypercalcemia (principal); E86.0 Dehydration; B37.0 Candidal stomatitis; F03.90 Unspecified dementia, unspecified severity, without behavioral disturbance, psychotic disturbance, mood disturbance, and anxiety; Z79.899 Other long term (current) drug therapy; Z79.01 Long term (current) use of anticoagulants
CPT/HCPCS: 36415; 80053; 80175; 80178; 82607; 83690; 83735; 84100; 85025; 85610; 93005; 96361; 96365; 99284; A9270; J3489

== ENCOUNTER 2023-02-13 18:22 | Outpatient (CLI) | payer MEDICARE | END 2023-02-13 18:23 | LOC: EMS 18:22 | PROVIDERS: ATTEND Emergency Medicine | DX: R41.0 Disorientation, unspecified (principal); F03.90 Unspecified dementia, unspecified severity, without behavioral disturbance, psychotic disturbance, mood disturbance, and anxiety; Z74.01 Bed confinement status | CPT/HCPCS: A0425; A0428 ==

== ENCOUNTER 2023-02-17 10:37 | Outpatient (CLI) | payer MEDICARE | END 2023-02-17 10:38 | disposition short-term general hospital (02) | LOC: EMS 10:37 | DX: R41.0 Disorientation, unspecified (principal); R13.10 Dysphagia, unspecified | CPT/HCPCS: A0425; A0429 ==

== ENCOUNTER 2023-02-17 10:45 | Emergency (ER) | payer MEDICARE ==
[2023-02-17] MEDS ORDERED: MORPHINE SOL 10 MG/0.5 ML ORAL SYRINGE SL PRN (11:04)
--- NOTE | 2023-02-17 11:37 | ED Physician Documentation ---
History of Present Illness - Stated complaint Stated Complaint: NOT EATING - Chief complaint Chief Complaint: General - History obtained from History obtained from: Family, EMS - Additonal information Additional information: Patient is a 77-year-old male from a [place] with a history of bipolar, prior strokes with rapid decline over the past couple of months. He was seen in our emergency department on and plan was for patient to be enrolled in hospice this afternoon. Over the course of the last day or so he has been less responsive and no longer taking any oral intake. Patient's Latisha is at the bedside and states that she requested he be transferred here to initiate comfort care measures. She is very clear that they do not want any further medical evaluations or treatments and their current goal is directed at comfort measures. Review of Systems Unable to obtain: Confused PD PAST MEDICAL HISTORY - Past Medical History Past Medical History: Yes Cardiovascular: Pulmonary embolism Respiratory: Sleep apnea, CPAP use Neuro: Other Endocrine/Autoimmune: None GI: Other : None, Other HEENT: None Psych: Bipolar disorder Musculoskeletal: Osteoarthritis, Chronic back pain Derm: None - Past Surgical History Past Surgical History: Yes General: Bowel surgery, Colonoscopy, EGD, Other Ortho: Rotator cuff repair, Other HEENT: Tonsil/Adenoidectomy - Present Medications Home Medications: Ambulatory Orders Medication Instructions Recorded Confirmed lamoTRIgine [LaMICtal] 100 mg PO DAILY 01/13/13 02/17/23 Buspirone HCl 30 mg PO BID 07/20/19 02/17/23 Warfarin [Coumadin] 5 mg PO DAILY 07/20/19 02/17/23 buPROPion HCL [Bupropion HCl Sr] 150 mg PO DAILY 07/20/19 02/17/23 [place] Carbonate 300 mg PO BID 04/04/22 02/17/23 lamoTRIgine [LaMICtal] 50 mg PO QPM 04/04/22 02/17/23 Calcium/Magnesium/Vit D3/[place] 1 each PO DAILY 02/13/23 02/17/23 [Calcium-Mag Oxide-Vit D3 Sftgl] Nystatin [Mycostatin] 10 ml PO QID 5 Days #200 ml 02/13/23 02/17/23 [place]-3S/Dha/Epa/Fish Oil [Fish 1 each PO DAILY 02/13/23 02/17/23 Oil 1,200 mg Softgel] Bisacodyl Supp [Dulcolax Supp] 10 mg [place] DAILY PRN #3 supp 02/17/23 LORazepam [Ativan] 0.5 mg PO Q6H PRN #10 tablet 02/17/23 Morphine Sulfate 5 mg PO Q4H PRN #30 ml 02/17/23 OLANZapine ODT [Zyprexa Odt] 5 mg TL BID PRN #10 tablet 02/17/23 Senna [Senokot] 8.6 mg PO BID PRN #10 tablet 02/17/23 - Allergies Allergies/Adverse Reactions: Allergies Allergy/AdvReac Type Severity Reaction Status Date / Time gabapentin Allergy Unknown Verified 02/17/23 10:53 iodine Allergy Unknown Verified 02/13/23 13:57 latex Allergy Rash Verified 02/13/23 13:57 nortriptyline Allergy Unknown Verified 02/17/23 10:53 sildenafil Allergy Unknown Verified 02/17/23 10:53 - Social History Does the pt smoke?: No Smoking Status: Never smoker Does the pt drink ETOH?: No Does the pt have substance abuse?: No - Immunizations Immunizations are current?: Yes - POLST Patient has POLST: No POLST Status: Full Code PD ED PE NORMAL - General General: No acute distress, Well developed/nourished, Other (Alert, not communicative) - HEENT HEENT: Atraumatic, PERRL, EOMI - Neck Neck: Supple, no meningeal sign - Cardiac Cardiac: RRR - Respiratory Respiratory: No respiratory distress, Clear bilaterally - Abdomen Abdomen: Soft, Non tender - Derm Derm: Warm and dry - Neuro Neuro: Other (Alert to verbal, follows commands, does not answer questions) Results - Vitals Vitals: Vital Signs - 24 hr 02/17/23 02/17/23 10:50 12:39 Temperature 35.7 C L Heart Rate 79 76 Respiratory 15 14 Rate Blood Pressure 131/93 H 129/95 H O2 Saturation 96 98 Oxygen O2 Source Room air PD Medical Decision Making - ED course Complexity details: d/w family ED course: Patient is a 77-year-old male with a history of bipolar, Prior strokes with rapid decline over the past several months and worse over the past few days presenting for comfort care measures. He is supposed to be enrolled in hospice this afternoon. However he is no longer taking p.o. intake so request to be transferred to the ER for comfort care initiation. Patient was seen by Dr. Rhodes. Medications were ordered For here and for the facility. Hospice team will be seeing him in a few hours. At this time no indication for inpatient admission or inpatient hospice. is comfortable with plan for transfer back to facility. Departure - Departure Disposition: 01 Home, Self Care Clinical Impression: End of life care Condition: Fair Instructions: Hospice Start Follow-Up: Renetta Rhodes MD [Provider Admit Priv/Credential] - Prescriptions: LORazepam [Ativan] 0.5 mg PO Q6H PRN #10 tablet PRN Reason: Anxiety Bisacodyl Supp [Dulcolax Supp] 10 mg [place] DAILY PRN #3 supp PRN Reason: Constipation Morphine Sulfate 5 mg PO Q4H PRN #30 ml PRN Reason: Moderate to Severe pain. Senna [Senokot] 8.6 mg PO BID PRN #10 tablet PRN Reason: Constipation OLANZapine ODT [Zyprexa Odt] 5 mg TL BID PRN #10 tablet PRN Reason: Nausea / Vomiting Comments: The hospice team will be coming to see Jeremy this afternoon. In the meanwhile I have sent a set of medications to [facility] in [place] which should be delivered to [facility]. [facility] should also be able to administer these medications from their supply until the prescribed amounts have been delivered. Forms: PCP List Discharge Date/Time: 02/17/23 12:42
[2023-02-17] MEDS ORDERED: MORPHINE SOL 10 MG/0.5 ML ORAL SYRINGE PO STA (11:53)
[2023-02-17] MEDS ORDERED: LORazepam 0.5 MG TABLET PO STA (11:53)
[2023-02-17] MEDS ORDERED: SCOPOLAMINE PATCH TOP SCH (12:00)
--- NOTE | 2023-02-17 12:27 | CONSULTATION NOTE ---
Hospice Consultation ([facility]) - Hospice Consultation 77 yo male w/prior CVA, chronic anticoagulation d/t prior PE (bilateral central, saddle PEs 2018), HANSA, central sleep apnea, h/o prostate cancer w/known urethral strictures d/t radiation, bipolar d/o. He has had general decline over the past several months and frequent ED visits. He had a pressure sore treated w/Bactrim in December that resulted in coagulopathy w/INR>10. No active bleeding/complications. Since then, he has had ongoing decline. He has been eating and drinking less. He has been in the ED several times w/different issues (hypercalemia, fecal impaction). He recently was moved from home to [facility] d/t losing 24 hour caregiving. notes he did have thrush while in the facility and his mouth was quite painful. She notes over the past few days, he has had very little intake. He has become more anxious/uncomfortable. He was sent to the ED this am for evaluation for meds for comfort. He is scheduled for hospice admission this afternoon. Pt reports he is having some generalized pain. Some nausea, especially after eating. notes he choked today when he tried to swallow PMH: as above Exam: VSS Gen-Elderly male, alert, ill appearing HEENT- NC, face symmetric, oropharynx is very dry w/adherent secretions/debris stuck to his teeth/hard palate and under the tongue and along the buccal surface of the teeth/gums Chest-CTAB CV-RRR Abd-soft, NT/ND, BT x 3 Extr- warm, No C/E, mottling noted to bilateral knees/soles of feet A/P: 1) CVD 2) Chronic anticoagulation d/t remote saddle PEs 3) Dysphagia 4) Generalized weakness 5) Mottling Pt has sustained a rapid decline over the past couple of months. He may have a component of vascular dementia. I performed oral care while he was in the ED and removed a moderate amount of debris. Recommend d/c warfarin and all non- comfort based medications. Requested gordon cath to be attempted while in ED (may not be successful given his hx of strictures). Morphine/lorazepam given for comfort. Recommended d/c scop patch given the dryness in his mouth (dysphagia may increase d/t dry mucus membranes). Pt to be admitted to Hospice services this afternoon. I discussed expected short prognosis w/. She notes she expects he will pass quickly based on the changes she has observed in the past few days.
[2023-02-17 12:44] VITALS: BP 129/95; O2SAT 98
== END 2023-02-17 12:42 | disposition home or self-care (01) ==
LOC: EDUNIT# → ED 10:45 → SUPCPDRO 10:45 → ED 12:42
DX: Z51.5 Encounter for palliative care (principal)
CPT/HCPCS: 99283; 99284; A9270; J3490

== ENCOUNTER 2023-02-17 12:43 | Outpatient (CLI) | payer MEDICARE | END 2023-02-17 12:44 | LOC: EMS 12:43 | PROVIDERS: ATTEND Emergency Medicine | DX: Z51.5 Encounter for palliative care (principal); Z66 Do not resuscitate | CPT/HCPCS: A0425; A0428 ==